=== PATIENT | female | born 1950 | race Caucasian/White ===

== ENCOUNTER 2018-03-06 13:27 | Emergency (ER) | payer MEDICARE ==
--- NOTE | 2018-03-06 13:56 | ERPHSYRPT ---
- History of Present Illness Time Seen by Provider: 03/06/18 13:51 Source: patient Exam Limitations: no limitations Physician History: The patient is a 5-year-old female with her complaining of right knee pain and swelling for 3 days. It hurts more at the back of her knee. She does not do much walking but when she does she uses a walker. She denies fever or chills. She denies shortness of breath. She has a past history of blood clots after having her knees replaced in 2000 or 2001. She is currently not on blood thinners except for aspirin 81 mg daily. She denies any trauma to the knee. She's had bilateral knee replacements. Her past medical history is significant for blood clot, bilateral knee replacements, high cholesterol, hypertension, edema, anxiety, depression, and asthma. Method of Injury: unknown Occurred: days ago (3) Quality: stabbing Severity of Pain-Max: moderate Severity of Pain-Current: moderate Lower Extremities Pain: knee: right Modifying Factors: Improves With: nothing Associated Symptoms: unable to bear weight Allergies/Adverse Reactions: Sulfa (Sulfonamide Antibiotics) Allergy (Verified 03/06/18 13:57) Home Medications: Adalimumab [Humira] 40 mg SQ WEEKLY 05/19/13 [History] Lisinopril 10 mg [Zestril 10 MG] 10 mg PO DAILY 05/19/13 [History] Metoprolol Succinate 50 mg [Toprol Xl 50 MG] 50 mg PO DAILY 05/19/13 [ History] Albuterol Sulfate [Ventolin Hfa] 18 gm IH QID PRN PRN 10/30/13 [History] Alprazolam 1 mg [Xanax 1 mg] 1 mg PO TID PRN 10/30/13 [History] Desoximetasone 0.05% [Topicort 0.05% Cream 15 Gm] 1 gm TOP BID 10/30/13 [ History] Diclofenac Sodium Gel [Voltaren GEL] 100 gm TP QID 10/30/13 [History] Furosemide [Lasix] 40 mg PO DAILY 10/30/13 [History] Potassium Chloride 10 Meq Tab* [Klor Con 10 MEQ] 10 meq PO DAILY 10/30/13 [ History] Simvastatin 40 mg [Zocor 40 mg] 40 mg PO HS 10/30/13 [History] Aspirin 81 gm Chew [Baby Aspirin 81 mg Chew] 81 mg PO DAILY 12/19/13 [ History] Hydrocodone Bit/Acetaminophen [Hydrocodon-Acetaminophn 10-325] 1 each PO Q6H PRN 12/19/13 [History] Albuterol Sulfate [Albuterol Sulfate Hfa] 18 gm IH Q4HPRN PRN 03/06/18 [History] Budesonide [Entocort EC] 3 mg PO DAILY 03/06/18 [History] Dicyclomine HCl 20 mg [Bentyl 20 mg] 20 mg PO DAILY 03/06/18 [History] Loperamide HCl 2 mg [Imodium 2 mg] 2 mg PO DAILY 03/06/18 [History] Magnesium Oxide 400 mg [Mag-Ox 400] 400 mg PO DAILY 03/06/18 [History] Meloxicam 7.5 mg PO DAILY 03/06/18 [History] Omeprazole 40 mg PO DAILY 03/06/18 [History] Venlafaxine HCl ER 75 mg [Effexor XR 75 MG] 75 mg PO DAILY 03/06/18 [ History] Hx Tetanus, Diphtheria Vaccination/Date Given: Yes Hx Influenza Vaccination/Date Given: Yes Hx Pneumococcal Vaccination/Date Given: Yes - Review of Systems Constitutional: No Fever, No Chills Eyes: No Symptoms Ears, Nose, & Throat: No Symptoms Respiratory: No Cough, No Dyspnea Cardiac: No Chest Pain, No Edema, No Syncope Abdominal/Gastrointestinal: No Abdominal Pain, No Nausea, No Vomiting, No Diarrhea Genitourinary Symptoms: No Dysuria Musculoskeletal: Joint Swelling (right knee) Skin: No Rash Neurological: No Dizziness, No Focal Weakness, No Sensory Changes Psychological: No Symptoms Endocrine: No Symptoms Hematologic/Lymphatic: No Symptoms Immunological/Allergic: No Symptoms All Other Systems: Reviewed and Negative - Past Medical History Pertinent Past Medical History: Yes Neurological History: No Pertinent History ENT History: Cataracts Cardiac History: Hypertension Respiratory History: COPD Endocrine Medical History: Diabetes Type II Musculoskeletal History: Arthritis, Fibromyalgia, Other GI Medical History: GERD History: No Pertinent History Psycho-Social History: Depression Female Reproductive Disorders: No Pertinent History Other Medical History: PSORIATIC OA, - Past Surgical History Past Surgical History: Yes Neuro Surgical History: No Pertinent History Cardiac: No Pertinent History Respiratory: No Pertinent History Gastrointestinal: No Pertinent History Genitourinary: No Pertinent History, Other Musculoskeletal: Joint Replacement, Orthopedic Surgery Female Surgical History: Hysterectomy Other Surgical History: RIGHT AND LEFT KNEE, TUMOR ON LEFT SIDE REMOVED, BLADDER TACT. cataract removed from left eye, orif of left wrist - Social History Smoking Status: Never smoker How long have you smoked: 35 yrs Exposure to second hand smoke: No Alcohol Use: None Drug Use: none Patient Lives Alone: No Significant Family History: diabetes, hypertension - Nursing Vital Signs Nursing Vital Signs: Initial Vital Signs Temperature 97.7 F 03/06/18 13:33 Pulse Rate 89 03/06/18 13:33 Respiratory Rate 20 03/06/18 13:33 Blood Pressure 85/61 03/06/18 13:33 O2 Sat by Pulse Oximetry 95 03/06/18 13:33 Pain Scale Pain Intensity 5 - Physical Exam General Appearance: alert Eyes, Ears, Nose, Throat Exam: moist mucous membranes Neck Exam: non-tender, supple Cardiovascular/Respiratory Exam: chest non-tender, normal breath sounds, regular rate/rhythm, no respiratory distress Gastrointestinal/Abdominal Exam: non-tender, guarding Back Exam: normal inspection, No vertebral tenderness Hips Exam: bilateral: normal inspection Legs Exam: bilateral leg: normal inspection Knees Exam: right knee: pain, soft tissue tenderness (posterior), swelling Ankle Exam: bilateral ankle: normal inspection Foot Exam: bilateral foot: normal inspection Neuro/Tendon Exam: normal sensation, normal motor functions Mental Status Exam: alert, oriented x 3, cooperative Skin Exam: normal color, warm, dry SpO2 Interpretation: normal - Radiology Exams Right Knee X-ray Interpretation: Reviewed by me, Teleradiologist Report (per Dr Reed) , Other (total right knee arthroplasty. prosthesis is well seated. small puprapatellar joint effusion is suspected.) - Radiology Ultrasound Exam Right Venous Lower Extremity Ultrasound: negative, Other (no DVT seen. bakers cyst seen. per U/S tech.) Ordered Tests: Active Orders 24 hr Category Date Time Status IV Insertion STAT Care 03/06/18 14:01 Active KNEE (3 VIEWS) Stat Exams 03/06/18 14:04 Taken VENOUS UNILAT/LIMITED EXTREMIT [US] Stat Exams 03/06/18 15:53 Taken BMP Stat Lab 03/06/18 14:10 Completed CBC W DIFF Stat Lab 03/06/18 14:10 Completed D-DIMER QUANTITATION Stat Lab 03/06/18 14:10 Completed NT PRO BNP Stat Lab 03/06/18 14:10 Completed Lab/Rad Data: Laboratory Result Diagrams 03/06/18 14:10 03/06/18 14:10 Laboratory Results 03/06/18 03/06/18 03/06/18 Range/Units 14:10 14:10 14:10 WBC 10.3 (4.0-10.5) K/mm3 RBC 4.02 L (4.1-5.4) M/mm3 Hgb 12.9 (12.0-16.0) gm/dl Hct 40.0 (35-47) % MCV 99.5 (78-100) fl MCH 32.0 (26-32) pg MCHC 32.3 (32-36) g/dl RDW 14.2 H (11.5-14.0) % Plt Count 312 (150-450) K/mm3 MPV 9.0 (6-9.5) fl Gran % 60.1 (36.0-66.0) % Eos # (Auto) 0.37 (0-0.5) Absolute Lymphs (auto) 2.89 (1.0-4.6) Absolute Monos (auto) 0.80 (0.0-1.3) Lymphocytes % 28.1 (24.0-44.0) % Monocytes % 7.8 (0.0-12.0) % Eosinophils % 3.6 (0.00-5.0) % Basophils % 0.4 (0.0-0.4) % Absolute Granulocytes 6.17 (1.4-6.9) Basophils # 0.04 (0-0.4) D-Dimer 629 H* (215-500) ng/mL Sodium 140 (137-145) mmol/L Potassium 4.1 (3.5-5.1) mmol/L Chloride 99 (98-107) mmol/L Carbon Dioxide 31 H (22-30) mmol/L Anion Gap 14.8 (5-15) MEQ/L BUN 32 H (7-17) mg/dL Creatinine 1.09 H (0.52-1.04) mg/dL Estimated GFR 52.7 ML/MIN Glucose 105 (74-106) mg/dL Calcium 9.6 (8.4-10.2) mg/dL NT-Pro-B Natriuret Pep 37.2 (0-900) pg/mL - Progress Progress: unchanged Counseled pt/family regarding: lab results, diagnosis, need for follow-up, rad results - Departure Time of Disposition: 16:37 Departure Disposition: Home Clinical Impression: Pain and swelling of right knee Condition: Stable Critical Care Time: No Referrals: JOSE ABAD, [place] [Primary Care Provider] - Additional Instructions: You have pain and swelling of your right knee. The ultrasound of your knee did not show any blood clot. The x-ray of her knee showed some mild swelling and small bone fragments. The artificial knee was in good position and seated well. Apply ice to your knee for 15-20 minutes 3-4 times a day for the next 2- 3 days. Follow-up with your doctor next week.
[2018-03-06 14:19] LABS: BASOPHIL % 0.4 % (0.0-0.4); Basophil (Absolute #) 0.04 (0-0.4); Eosinophil % 3.6 % (0.00-5.0); Eosinophil (Absolute #) 0.37 (0-0.5); Granulocyte Absolute (ANC) 6.17 (1.4-6.9); Granulocytes % 60.1 % (36.0-66.0); Hemoglobin 12.9 gm/dl (12.0-16.0); Lymphocyte (Absolute #) 2.89 (1.0-4.6); Lymphocytes % 28.1 % (24.0-44.0); Mean Cell Volume 99.5 fl (78-100); Mean Corpuscular Hgb Concent. 32.3 g/dl (32-36); Monocytes % 7.8 % (0.0-12.0); Platelet Count 312 K/mm3 (150-450); Red Blood Count 4.02 M/mm3 (4.1-5.4); Red Cell Distribution Width 14.2 % (11.5-14.0); White Blood Count 10.3 K/mm3 (4.0-10.5)
[2018-03-06 14:36] LABS: ANION GAP 14.8 MEQ/L (5-15); Calcium 9.6 mg/dL (8.4-10.2); Creatinine 1 1.09 mg/dL (0.52-1.04); Potassium 4.1 mmol/L (3.5-5.1)
[2018-03-06 14:45] LABS: NT PRO BNP 37.2 pg/mL (0-900)
[2018-03-06 16:05] VITALS: BP 112/60; PULSE 78; O2SAT 97
--- NOTE | 2018-03-06 21:11 | XRAY ---
Indication: Right knee swelling. Two-dimensional sonogram and color Doppler imaging of the major venous vessels of the right leg was performed. Comparison: None No thrombus seen in the examined deep venous vessels of the right leg including greater saphenous vein. Veins demonstrate normal compressibility. Venous waveforms are normal with and without augmentation. 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 Comment: Preliminary report was given.
--- NOTE | 2018-03-06 21:14 | XRAY ---
Indication: Pain and swelling. No known injury. Comparison: June 28, 2013. 3 views of the right knee again demonstrates osteopenia, total knee arthroplasty with intact articulation/prosthesis, and heterotopic ossifications. New nonspecific effusion. No other abnormalities. Comment: Preliminary interpretation was made by C. No discrepancy.
== END 2018-03-06 16:54 | disposition home or self-care (01) ==
LOC: ED 13:27
DX: M25.561 Pain in right knee (principal); M25.461 Effusion, right knee; I10 Essential (primary) hypertension; J44.9 Chronic obstructive pulmonary disease, unspecified; E11.9 Type 2 diabetes mellitus without complications; M79.7 Fibromyalgia; K21.9 Gastro-esophageal reflux disease without esophagitis; F32.9 Major depressive disorder, single episode, unspecified; Z79.899 Other long term (current) drug therapy; Z79.82 Long term (current) use of aspirin; Z86.718 Personal history of other venous thrombosis and embolism; Z96.653 Presence of artificial knee joint, bilateral
CPT/HCPCS: 36000; 36415; 73562; 80048; 83880; 85025; 85379; 93971; 99284

== ENCOUNTER 2018-12-29 11:09 | Day surgery (SDC) | payer MEDICARE ==
[2018-12-29] MEDS ORDERED: Ketamine HCl 50 MG/ML IV ONE (11:10)
[2018-12-29] MEDS ORDERED: Depo-Medrol 40 MG/ML IM ONE (11:10)
[2018-12-29] MEDS ORDERED: DIPRIVAN 200 MG/20 ML IV ONE (11:10)
[2018-12-29] MEDS ORDERED: Marcaine 0.5% SDV 10 ML IJ ONE (11:10)
[2018-12-29] MEDS ORDERED: Lactated Ringers 1,000 ML IV ONE (14:23)
--- NOTE | 2018-12-29 16:27 | XRAY ---
9 seconds fluoroscopy time in surgery for right SI joint injection.
--- NOTE | 2018-12-30 05:06 | XRAY ---
Indication: Right SI joint injection. Intraoperative fluoroscopy was provided for 9 seconds. 2 digital spot images reveal a posterior needle tip in the projection of the inferior margin of the right sacroiliac joint. Correlate with intraoperative findings/report.
== END 2018-12-29 12:55 | disposition home or self-care (01) ==
LOC: SDC-PAIN 11:09
PROVIDERS: ATTEND Psychiatry & Neurology Pain Medicine
DX: M46.1 Sacroiliitis, not elsewhere classified (principal); M53.3 Sacrococcygeal disorders, not elsewhere classified; E11.9 Type 2 diabetes mellitus without complications; I10 Essential (primary) hypertension; J44.9 Chronic obstructive pulmonary disease, unspecified; K21.9 Gastro-esophageal reflux disease without esophagitis; M06.9 Rheumatoid arthritis, unspecified; F41.9 Anxiety disorder, unspecified; F32.9 Major depressive disorder, single episode, unspecified
CPT/HCPCS: 72020; 77002; 82962; G0260; 27096; 99100; J1030; J2704

== ENCOUNTER 2019-01-26 10:18 | Day surgery (SDC) | payer MEDICARE ==
[2019-01-26] MEDS ORDERED: Depo-Medrol 40 MG/ML IM ONE (10:19)
[2019-01-26] MEDS ORDERED: Marcaine 0.5% SDV 10 ML IJ ONE (10:19)
[2019-01-26] MEDS ORDERED: Ketamine HCl 50 MG/ML ONE (11:44)
[2019-01-26] MEDS ORDERED: DIPRIVAN 200 MG/20 ML IV ONE (11:44)
--- NOTE | 2019-01-26 13:06 | XRAY ---
Indication: Right SI joint injection. Intraoperative fluoroscopy was provided for 6 seconds. 2 digital spot images submitted for interpretation demonstrates posterior needle tip projecting over the inferior right SI joint. Correlate with intraoperative findings/report.
--- NOTE | 2019-01-26 13:09 | XRAY ---
6 seconds of fluoroscopy was used in surgery for right SI joint injection.
[2019-01-26] MEDS ORDERED: Lactated Ringers 1,000 ML IV ONE (13:34)
== END 2019-01-26 12:12 | disposition home or self-care (01) ==
LOC: SDC-PAIN 10:18
PROVIDERS: ATTEND Psychiatry & Neurology Pain Medicine
DX: M46.1 Sacroiliitis, not elsewhere classified (principal); M53.3 Sacrococcygeal disorders, not elsewhere classified; I10 Essential (primary) hypertension; J44.9 Chronic obstructive pulmonary disease, unspecified; F41.8 Other specified anxiety disorders; M06.9 Rheumatoid arthritis, unspecified; E11.9 Type 2 diabetes mellitus without complications; M19.90 Unspecified osteoarthritis, unspecified site; K21.9 Gastro-esophageal reflux disease without esophagitis; R00.0 Tachycardia, unspecified
CPT/HCPCS: 20610; 72020; 77002; J1030; J2704

== ENCOUNTER 2019-06-14 22:06 | Inpatient (IN) | payer MEDICARE ==
--- NOTE | 2019-06-14 22:20 | ERPHSYRPT ---
- History of Present Illness Time Seen by Provider: 06/14/19 22:10 Source: patient, family Exam Limitations: other (confusion) Physician History: 69 y/o white female with lung issues, depression, diabetes and htn presents with confusion. pt states since this am. i spoke with and he states confusion for 3 weeks and worsening. spouse states pt was seen by pcp today( bret vogel-dr. barreto)and was taken off of a bp medication. pt denies head injury, denies headache, denies cp, denies soa, denies abd pain. abilify started 06/01/19. pt prescribed augmentin this afternoon by pcp. Timing/Duration: week(s) (3), worse Severity: mild Character of Deficits: none Baseline/Normal Cognition: alert oriented x 3 Current Cognition: alert but confused (mild confusion) Associated Symptoms: confusion, No weakness, No slurred speech, No vision changes, No chest pain Allergies/Adverse Reactions: Sulfa (Sulfonamide Antibiotics) Allergy (Verified 06/14/19 22:26) morphine Adverse Reaction (Verified 06/14/19 22:28) Home Medications: Lisinopril 10 mg [Zestril 10 MG] 10 mg PO DAILY 05/19/13 [History] Metoprolol Succinate 50 mg [Toprol Xl 50 MG] 50 mg PO DAILY 05/19/13 [ History] Furosemide [Lasix] 40 mg PO DAILY 10/30/13 [History] Potassium Chloride 10 Meq Tab* [Klor Con 10 MEQ] 10 meq PO DAILY 10/30/13 [ History] Simvastatin 40 mg [Zocor 40 mg] 40 mg PO HS 10/30/13 [History] Albuterol Sulfate [Albuterol Sulfate Hfa] 18 gm IH Q4HPRN PRN 03/06/18 [History] Meloxicam 7.5 mg PO DAILY 03/06/18 [History] Omeprazole 40 mg PO DAILY 03/06/18 [History] Alendronate Sodium 70 mg [Fosamax 70 MG] 70 mg PO Q7D@0600 06/15/19 [ History] Allopurinol 100 mg [Zyloprim 100 mg] 100 mg PO DAILY 06/15/19 [History] Aripiprazole [Abilify] 20 mg PO DAILY 06/15/19 [History] Aspirin EC 325 mg [Ecotrin 325 MG] 325 mg PO DAILY 06/15/19 [History] Duloxetine HCl 60 mg PO BID 06/15/19 [History] Etodolac 400 mg PO BID 06/15/19 [History] Fluticasone Propion/Salmeterol [Fluticasone-Salmeterol 250-50] 1 each IH BID 01/26 [History] Gabapentin 300 mg PO HS 06/15/19 [History] Oxycodone HCl/Acetaminophen [Oxycodon-Acetaminophen 7.5-325] 1 each PO Q4H PRN PRN 06/15/19 [History] Tizanidine HCl 4 mg [Zanaflex 4 MG] 4 mg PO Q6H PRN PRN 06/15/19 [History] Hx Tetanus, Diphtheria Vaccination/Date Given: Yes Hx Influenza Vaccination/Date Given: Yes Hx Pneumococcal Vaccination/Date Given: Yes - Review of Systems Constitutional: No Symptoms Eyes: No Symptoms Ears, Nose, & Throat: No Symptoms Respiratory: No Symptoms Cardiac: No Symptoms Abdominal/Gastrointestinal: No Symptoms Genitourinary Symptoms: No Symptoms Musculoskeletal: No Symptoms Skin: No Symptoms Neurological: Other (confusion) Psychological: No Symptoms Endocrine: No Symptoms Hematologic/Lymphatic: No Symptoms Immunological/Allergic: No Symptoms All Other Systems: Reviewed and Negative - Past Medical History Pertinent Past Medical History: Yes Neurological History: No Pertinent History ENT History: Cataracts Cardiac History: Hypertension Respiratory History: COPD Endocrine Medical History: Diabetes Type II Musculoskeletal History: Arthritis, Fibromyalgia, Other GI Medical History: GERD History: No Pertinent History Psycho-Social History: Depression Female Reproductive Disorders: No Pertinent History Other Medical History: PSORIATIC OA, - Past Surgical History Past Surgical History: Yes Neuro Surgical History: No Pertinent History Cardiac: No Pertinent History Respiratory: No Pertinent History Gastrointestinal: No Pertinent History Genitourinary: No Pertinent History, Other Musculoskeletal: Joint Replacement, Orthopedic Surgery Female Surgical History: Hysterectomy Other Surgical History: RIGHT AND LEFT KNEE, TUMOR ON LEFT SIDE REMOVED, BLADDER TACT. cataract removed from left eye, orif of left wrist - Social History Smoking Status: Never smoker How long have you smoked: 35 yrs Exposure to second hand smoke: No Alcohol Use: None Drug Use: none Patient Lives Alone: No Significant Family History: diabetes, hypertension - Nursing Vital Signs Nursing Vital Signs: Initial Vital Signs Pulse Rate 109 H 06/14/19 22:10 Respiratory Rate 18 06/14/19 22:10 Blood Pressure 113/60 06/14/19 22:10 O2 Sat by Pulse Oximetry 94 L 06/14/19 22:10 Pain Scale Pain Intensity 0 - Kenan Coma Scale Best Eye Response (Fontanelle): (4) open spontaneously Best Verbal Response (Fontanelle): (4) confused conversation Best Motor Response (Kenan): (6) obeys commands Fontanelle Total: 14 - Physical Exam General Appearance: no apparent distress, alert, anxiety Eye Exam: bilateral eye: normal inspection, PERRL, EOMI Ears, Nose, Throat Exam: moist mucous membranes, other (edentulous) Neck Exam: normal inspection, non-tender, supple, full range of motion Respiratory: normal breath sounds, lungs clear, airway intact, No chest tenderness, No respiratory distress Cardiovascular: regular rate/rhythm, normal heart sounds, normal peripheral pulses Gastrointestinal: soft, normal bowel sounds, No tenderness Pelvic Exam: not done Rectal Exam: not done Back Exam: normal inspection, normal range of motion, CVA tenderness Extremity Exam: normal inspection, normal range of motion, pelvis stable Mental Status: alert, cooperative mobile lounge driver or operator Exam: normal hearing, normal speech, PERRL Coordination/Gait: normal finger to nose, normal gait, normal cerebellar function Motor/Sensory: no motor deficit, no sensory deficit, no pronator drift Skin Exam: normal color, warm, dry SpO2 Interpretation: normal O2 Delivery: Room Air - Course Nursing assessment & vital signs reviewed: Yes EKG Interpreted by Me: RATE (104), Sinus Rhythm, NORMAL AXIS, NORMAL INTERVALS, NORMAL QRS, Other (no sig changes from comparison ekg dated 12/02/15) Ordered Tests: Active Orders 24 hr Category Date Time Status Accucheck STAT Care 06/14/19 22:25 Active Nailhead Puncher STAT Care 06/14/19 22:25 Active EKG-ER Only STAT Care 06/14/19 22:25 Active IV Insertion STAT Care 06/14/19 22:25 Active IV Insertion-2nd Peripheral STAT Care 06/14/19 23:00 Active NPO (ED) STAT Care 06/14/19 22:25 Active Oxygen-ED Only Nasal Cannula 2 lpm Care 06/14/19 22:32 Active Pulse Oximetry (ED) STAT Care 06/14/19 22:25 Active cath [Cath for Specimen-Straight] STAT Care 06/14/19 22:44 Active CHEST 1 VIEW (PORTABLE) Stat Exams 06/14/19 22:47 Taken HEAD WITHOUT CONTRAST [CT] Stat Exams 06/14/19 22:12 Taken BLOOD CULTURE Stat Lab 06/14/19 23:15 Received BMP Stat Lab 06/15/19 01:20 Completed CBC W DIFF Stat Lab 06/14/19 22:20 Completed CBC W DIFF Stat Lab 06/15/19 01:20 Completed CMP Stat Lab 06/14/19 22:20 Completed Lactic Acid Stat Lab 06/14/19 22:50 Completed MAG [MAGNESIUM] Stat Lab 06/14/19 22:20 Completed Manual Differential NC Stat Lab 06/14/19 22:20 Completed Manual Differential NC Stat Lab 06/15/19 01:20 Completed UA W/RFX UR CULTURE Stat Lab 06/14/19 23:00 Completed Urine Triage Profile Stat Lab 06/14/19 23:00 Completed Respiratory Therapy Assessment DAILY RT 06/14/19 23:40 Active Respiratory Therapy Consult ONCE RT 06/14/19 23:40 Completed Transfer Order Routine Transfer 06/15/19 Ordered Medication Summary Generic Name Dose Route Start Last Admin Trade Name Freq PRN Reason Stop Dose Admin Sodium Chloride 1,000 mls @ 100 mls/hr 06/14/19 22:30 06/14/19 23:07 Sodium Chloride 0.9% 1000 Ml IV 07/14/19 22:29 999 mls/hr .Q10H NUBIA Administration Discontinued Medications Generic Name Dose Route Start Last Admin Trade Name Freq PRN Reason Stop Dose Admin Albuterol Sulfate 2.5 mg 06/14/19 23:24 06/14/19 23:29 Proventil 2.5 Mg/3 Ml Neb IH 06/14/19 23:25 2.5 mg STAT ONE Administration Albuterol Sulfate Confirm 06/14/19 23:27 Proventil 2.5 Mg/3 Ml Neb Administered 06/14/19 23:28 Dose 2.5 mg IH .STK-MED ONE Calcium Chloride 1,000 mg 06/14/19 23:20 06/14/19 23:49 Calcium Chloride 10% 1000 Mg IV 06/14/19 23:21 1,000 mg STAT ONE Administration Calcium Chloride Confirm 06/14/19 23:31 Calcium Chloride 10% 1000 Mg Administered 06/14/19 23:32 Dose 1,000 mg .ROUTE .STK-MED ONE Dextrose 50 ml 06/14/19 23:22 06/14/19 23:42 D50w 50 Ml Abboject IV 06/14/19 23:23 50 ml STAT ONE Administration Sodium Chloride 1,000 mls @ 999 mls/hr 06/14/19 23:04 06/14/19 23:09 Sodium Chloride 0.9% 1000 Ml IV 06/15/19 00:04 999 mls/hr .Q1H1M STA Administration Dextrose Confirm 06/14/19 23:33 Dextrose 10% 250 Ml Administered 06/14/19 23:34 Dose 250 mls @ ud IV .STK-MED ONE Insulin Human Regular 3 unit 06/14/19 23:23 06/14/19 23:48 Novolin R IV 06/14/19 23:24 3 unit STAT ONE Administration Insulin Human Regular Confirm 06/14/19 23:47 Novolin R Administered 06/14/19 23:48 Dose 3 unit .ROUTE .STK-MED ONE Sodium Bicarbonate 50 meq 06/14/19 23:21 06/14/19 23:51 Sodium Bicarbonate 50 Meq/50 Ml Abboject IV 06/14/19 23:22 50 meq STAT ONE Administration Sodium Bicarbonate Confirm 06/14/19 23:32 Sodium Bicarbonate 50 Meq/50 Ml Abboject Administered 06/14/19 23:33 Dose 50 meq IV .STK-MED ONE Sodium Polystyrene Sulfonate 30 g 06/14/19 23:20 06/14/19 23:41 Kayexylate 15 Gm/60 Ml PO 06/14/19 23:21 30 g STAT ONE Administration Sodium Polystyrene Sulfonate Confirm 06/14/19 23:32 Kayexylate 15 Gm/60 Ml Administered 06/14/19 23:33 Dose 30 g .ROUTE .STK-MED ONE Lab/Rad Data: Laboratory Result Diagrams 06/15/19 01:20 06/15/19 01:20 Laboratory Results 06/15/19 06/15/19 06/14/19 Range/Units 01:20 01:20 23:00 WBC 19.5 H (4.0-10.5) K/mm3 RBC 3.31 L (4.1-5.4) M/mm3 Hgb 10.6 L (12.0-16.0) gm/dl Hct 32.7 L (35-47) % MCV 98.8 (78-100) fl MCH 32.0 (26-32) pg MCHC 32.4 (32-36) g/dl RDW 14.4 H (11.5-14.0) % Plt Count 417 (150-450) K/mm3 MPV 9.2 (6-9.5) fl Segmented Neutrophils (36.0-66.0) % Band Neutrophils (0.0-2.0) % Lymphocytes (Manual) (24-44) % Monocytes (Manual) (0.0-12.0) % Eosinophils (Manual) (0.00-3.0) % Platelet Estimate (NORMAL) RBC Morphology Poikilocytosis Anisocytosis Sodium 134 L (137-145) mmol/L Potassium 5.4 H D (3.5-5.1) mmol/L Chloride 103 (98-107) mmol/L Carbon Dioxide 25 (22-30) mmol/L Anion Gap 11.8 (5-15) MEQ/L BUN 59 H (7-17) mg/dL Creatinine 2.42 H (0.52-1.04) mg/dL Estimated GFR 21.0 ML/MIN Glucose 81 (74-106) mg/dL Lactic Acid (0.4-2.0) Calcium 11.2 H (8.4-10.2) mg/dL Magnesium (1.6-2.3) mg/dL Total Bilirubin (0.2-1.3) mg/dL AST (14-36) U/L ALT (0-35) U/L Alkaline Phosphatase (38-126) U/L Ammonia (9-30) umol/L Serum Total Protein (6.3-8.2) g/dL Albumin (3.5-5.0) g/dL Urine Color (YELLOW) Urine Appearance (CLEAR) Urine pH (5-6) Ur Specific Oliver (1.005-1.025) Urine Protein (Negative) Urine Ketones (NEGATIVE) Urine Blood (0-5) Librado/ul Urine Nitrite (NEGATIVE) Urine Bilirubin (NEGATIVE) Urine Urobilinogen (0-1) mg/dL Ur Leukocyte Esterase (NEGATIVE) Urine WBC (Auto) (0-5) /HPF Urine RBC (Auto) (0-2) /HPF U Hyaline Cast (Auto) (0-2) /LPF U Epithel Cells (Auto) (FEW) /HPF Urine Bacteria (Auto) (NEGATIVE) /HPF Urine Mucus (Auto) (NEGATIVE) /HPF Urine Culture Reflexed (NO) Urine Glucose (NEGATIVE) mg/dL Urine Opiates Level POSITIVE (NEGATIVE) Ur Methadone NEGATIVE (NEGATIVE) Urine Barbiturates NEGATIVE (NEGATIVE) Ur Phencyclidine (PCP) NEGATIVE (NEGATIVE) Urine Amphetamine NEGATIVE (NEGATIVE) U Benzodiazepine Level NEGATIVE (NEGATIVE) Urine Cocaine NEGATIVE (NEGATIVE) Urine Marijuana (THC) NEGATIVE (NEGATIVE) 06/14/19 06/14/19 06/14/19 Range/Units 23:00 22:50 22:20 WBC (4.0-10.5) K/mm3 RBC (4.1-5.4) M/mm3 Hgb (12.0-16.0) gm/dl Hct (35-47) % MCV (78-100) fl MCH (26-32) pg MCHC (32-36) g/dl RDW (11.5-14.0) % Plt Count (150-450) K/mm3 MPV (6-9.5) fl Segmented Neutrophils (36.0-66.0) % Band Neutrophils (0.0-2.0) % Lymphocytes (Manual) (24-44) % Monocytes (Manual) (0.0-12.0) % Eosinophils (Manual) (0.00-3.0) % Platelet Estimate (NORMAL) RBC Morphology Poikilocytosis Anisocytosis Sodium (137-145) mmol/L Potassium (3.5-5.1) mmol/L Chloride (98-107) mmol/L Carbon Dioxide (22-30) mmol/L Anion Gap (5-15) MEQ/L BUN (7-17) mg/dL Creatinine (0.52-1.04) mg/dL Estimated GFR ML/MIN Glucose (74-106) mg/dL Lactic Acid 1.0 (0.4-2.0) Calcium (8.4-10.2) mg/dL Magnesium 1.5 L (1.6-2.3) mg/dL Total Bilirubin (0.2-1.3) mg/dL AST (14-36) U/L ALT (0-35) U/L Alkaline Phosphatase (38-126) U/L Ammonia (9-30) umol/L Serum Total Protein (6.3-8.2) g/dL Albumin (3.5-5.0) g/dL Urine Color YELLOW (YELLOW) Urine Appearance SLIGHTLY CLOUDY (CLEAR) Urine pH 5.0 (5-6) Ur Specific Oliver 1.015 (1.005-1.025) Urine Protein NEGATIVE (Negative) Urine Ketones NEGATIVE (NEGATIVE) Urine Blood NEGATIVE (0-5) Librado/ul Urine Nitrite NEGATIVE (NEGATIVE) Urine Bilirubin NEGATIVE (NEGATIVE) Urine Urobilinogen 2 (0-1) mg/dL Ur Leukocyte Esterase NEGATIVE (NEGATIVE) Urine WBC (Auto) 0-2 (0-5) /HPF Urine RBC (Auto) NONE (0-2) /HPF U Hyaline Cast (Auto) 0-2 (0-2) /LPF U Epithel Cells (Auto) NONE (FEW) /HPF Urine Bacteria (Auto) NONE (NEGATIVE) /HPF Urine Mucus (Auto) SLIGHT (NEGATIVE) /HPF Urine Culture Reflexed NO (NO) Urine Glucose NEGATIVE (NEGATIVE) mg/dL Urine Opiates Level (NEGATIVE) Ur Methadone (NEGATIVE) Urine Barbiturates (NEGATIVE) Ur Phencyclidine (PCP) (NEGATIVE) Urine Amphetamine (NEGATIVE) U Benzodiazepine Level (NEGATIVE) Urine Cocaine (NEGATIVE) Urine Marijuana (THC) (NEGATIVE) 06/14/19 06/14/19 06/14/19 Range/Units 22:20 22:20 22:20 WBC 24.3 H (4.0-10.5) K/mm3 RBC 3.76 L (4.1-5.4) M/mm3 Hgb 11.9 L (12.0-16.0) gm/dl Hct 36.8 (35-47) % MCV 97.9 (78-100) fl MCH 31.6 (26-32) pg MCHC 32.3 (32-36) g/dl RDW 14.5 H (11.5-14.0) % Plt Count 538 H (150-450) K/mm3 MPV 9.6 H (6-9.5) fl Segmented Neutrophils 78 H (36.0-66.0) % Band Neutrophils 5 H (0.0-2.0) % Lymphocytes (Manual) 11 L (24-44) % Monocytes (Manual) 3 (0.0-12.0) % Eosinophils (Manual) 3 (0.00-3.0) % Platelet Estimate NORMAL (NORMAL) RBC Morphology ABNORMAL Poikilocytosis 1+ Anisocytosis 1+ Sodium 132 L (137-145) mmol/L Potassium 6.8 H* (3.5-5.1) mmol/L Chloride 96 L (98-107) mmol/L Carbon Dioxide 24 (22-30) mmol/L Anion Gap 18.2 H (5-15) MEQ/L BUN 61 H (7-17) mg/dL Creatinine 3.16 H (0.52-1.04) mg/dL Estimated GFR 15.4 ML/MIN Glucose 85 (74-106) mg/dL Lactic Acid (0.4-2.0) Calcium 11.5 H (8.4-10.2) mg/dL Magnesium (1.6-2.3) mg/dL Total Bilirubin 1.00 (0.2-1.3) mg/dL AST 19 (14-36) U/L ALT 16 (0-35) U/L Alkaline Phosphatase 95 (38-126) U/L Ammonia < 9 L (9-30) umol/L Serum Total Protein 6.2 L (6.3-8.2) g/dL Albumin 3.2 L (3.5-5.0) g/dL Urine Color (YELLOW) Urine Appearance (CLEAR) Urine pH (5-6) Ur Specific Oliver (1.005-1.025) Urine Protein (Negative) Urine Ketones (NEGATIVE) Urine Blood (0-5) Librado/ul Urine Nitrite (NEGATIVE) Urine Bilirubin (NEGATIVE) Urine Urobilinogen (0-1) mg/dL Ur Leukocyte Esterase (NEGATIVE) Urine WBC (Auto) (0-5) /HPF Urine RBC (Auto) (0-2) /HPF U Hyaline Cast (Auto) (0-2) /LPF U Epithel Cells (Auto) (FEW) /HPF Urine Bacteria (Auto) (NEGATIVE) /HPF Urine Mucus (Auto) (NEGATIVE) /HPF Urine Culture Reflexed (NO) Urine Glucose (NEGATIVE) mg/dL Urine Opiates Level (NEGATIVE) Ur Methadone (NEGATIVE) Urine Barbiturates (NEGATIVE) Ur Phencyclidine (PCP) (NEGATIVE) Urine Amphetamine (NEGATIVE) U Benzodiazepine Level (NEGATIVE) Urine Cocaine (NEGATIVE) Urine Marijuana (THC) (NEGATIVE) - Progress Progress: improved Progress Note: 06/15/19 02:16 cxr-? right perihilar infiltrate vs increased vascular markings: ct head-no acute process. mild atrophy with chronic remote ischemic changes. spoke with dr. small who is covering for dr. barreto. i reviewed pt hx, condition , old and new lab results, ekg and radiographic findings. he accepts pt for placement for observation Discussed with .: Octavia Counseled pt/family regarding: lab results, diagnosis, rad results - Departure Departure Disposition: Observation Clinical Impression: Confusion, Leukocytosis, Hyperkalemia, Acute renal failure, Pulmonary infiltrate in right lung on CXR Condition: Fair Critical Care Time: Yes Critical Care Time(excluding separately billable procedures): Critical 30-74 mins Referrals: JOSE VOGEL NP [Primary Care Provider] -
[2019-06-14] MEDS ORDERED: Sodium Chloride 0.9% 1000 ML 1,000 ML ONE ×2 (22:34→22:57)
[2019-06-14] MEDS: Sodium Chloride 0.9% 1000 ML 1,000 ML IV SCH ×2 (22:37→23:07)
[2019-06-14 22:38] LABS: Hematocrit 36.8 % (35-47); Hemoglobin 11.9 gm/dl (12.0-16.0); Mean Cell Volume 97.9 fl (78-100); Mean Corpuscular Hemoglobin 31.6 pg (26-32); Mean Corpuscular Hgb Concent. 32.3 g/dl (32-36); Mean Platelet Volume 9.6 fl (6-9.5); Platelet Count 538 K/mm3 (150-450); Red Blood Count 3.76 M/mm3 (4.1-5.4); Red Cell Distribution Width 14.5 % (11.5-14.0); White Blood Count 24.3 K/mm3 (4.0-10.5)
[2019-06-14 22:49] LABS: ALBUMIN 3.2 g/dL (3.5-5.0); ANION GAP 18.2 MEQ/L (5-15); Calcium 11.5 mg/dL (8.4-10.2); Creatinine 1 3.16 mg/dL (0.52-1.04); Total Protein 6.2 g/dL (6.3-8.2)
[2019-06-14] MEDS ORDERED: Sodium Chloride 0.9% 1000 ML 1,000 ML IV STA (23:04)
[2019-06-14 23:10] LABS: Potassium 6.8 mmol/L (3.5-5.1)
[2019-06-14] MEDS ORDERED: CALCIUM CHLORIDE 10% 1000 MG IV ONE (23:20)
[2019-06-14] MEDS ORDERED: Kayexylate 15 GM/60 ML PO ONE (23:20)
[2019-06-14 23:21] LABS: Appearance SLIGHTLY CLOUDY (CLEAR); Bilirubin NEGATIVE (NEGATIVE); Blood NEGATIVE Ery/ul (0-5); Glucose NEGATIVE (NEGATIVE); Hyaline Casts 0-2 /LPF (0-2); Ketones NEGATIVE (NEGATIVE); Leukocyte Esterase NEGATIVE (NEGATIVE); Mucus SLIGHT /HPF (NEGATIVE); Nitrite NEGATIVE (NEGATIVE); Protein,Urine Dip NEGATIVE (Negative); Specific Gravity 1.015 (1.005-1.025); Urobilinogen 2 mg/dL (0-1); WBC 0-2 /HPF (0-5)
[2019-06-14] MEDS ORDERED: SODIUM BICARBONATE 50 MEQ/50 ML ABBOJECT IV ONE ×2 (23:21→23:32)
[2019-06-14] MEDS ORDERED: D50W 50 ml Abboject IV ONE (23:22)
[2019-06-14] MEDS ORDERED: NovoLIN R IV ONE (23:23)
[2019-06-14] MEDS ORDERED: PROVENTIL 2.5 MG/3 ML NEB IH ONE ×2 (23:24→23:27)
[2019-06-14 23:30] LABS: Amphetamine,Urine NEGATIVE (NEGATIVE); Barbiturate,Urine NEGATIVE (NEGATIVE); Benzodiazepine,Urine NEGATIVE (NEGATIVE); Cocaine,Urine NEGATIVE (NEGATIVE); Methadone,Urine NEGATIVE (NEGATIVE); Opiate,Urine POSITIVE (NEGATIVE); PCP,Urine NEGATIVE (NEGATIVE); THC,Urine NEGATIVE (NEGATIVE)
[2019-06-14] MEDS ORDERED: CALCIUM CHLORIDE 10% 1000 MG ONE (23:31)
[2019-06-14] MEDS ORDERED: Kayexylate 15 GM/60 ML ONE (23:32)
[2019-06-14] MEDS ORDERED: DEXTROSE 10% 250 ML 250 ML IV ONE (23:33)
[2019-06-14] MEDS ORDERED: NovoLIN R ONE (23:47)
[2019-06-14 23:55] LABS: BAND 5 % (0.0-2.0); Eosinophil 3 % (0.00-3.0); Lymphocytes 11 % (24-44); Monocyte 3 % (0.0-12.0); Neutrophils 78 % (36.0-66.0); Platelet Estimate NORMAL (NORMAL); Total Cells Counted 100
[2019-06-14 23:56] LABS: ANISOCYTOSIS 1+; Poikilocytosis 1+
[2019-06-15 01:27] LABS: Hematocrit 32.7 % (35-47); Hemoglobin 10.6 gm/dl (12.0-16.0); Mean Cell Volume 98.8 fl (78-100); Mean Corpuscular Hgb Concent. 32.4 g/dl (32-36); Mean Platelet Volume 9.2 fl (6-9.5); Platelet Count 417 K/mm3 (150-450); Red Blood Count 3.31 M/mm3 (4.1-5.4); Red Cell Distribution Width 14.4 % (11.5-14.0); White Blood Count 19.5 K/mm3 (4.0-10.5)
[2019-06-15 01:51] LABS: ANION GAP 11.8 MEQ/L (5-15); Calcium 11.2 mg/dL (8.4-10.2); Creatinine 1 2.42 mg/dL (0.52-1.04); Potassium 5.4 mmol/L (3.5-5.1)
[2019-06-15] MEDS ORDERED: Zofran 4 MG/2 ML VIAL IV PRN (03:13)
[2019-06-15] MEDS ORDERED: TYLENOL 325 MG PO PRN (03:13)
[2019-06-15] MEDS ORDERED: PROVENTIL Solution 2.5 MG/0.5 ML IH ONE (03:55)
[2019-06-15] MEDS ORDERED: PROVENTIL 2.5 MG/3 ML NEB IH PRN (04:00)
[2019-06-15 04:32] LABS: BAND 5 % (0.0-2.0); Eosinophil 1 % (0.00-3.0); Lymphocytes 16 % (24-44); Monocyte 7 % (0.0-12.0); Neutrophils 71 % (36.0-66.0); Total Cells Counted 100
[2019-06-15 04:33] LABS: ANISOCYTOSIS 1+; Platelet Estimate NORMAL (NORMAL)
[2019-06-15] MEDS: Dextrose 5%-NS IV Solution 1000 ML 1,000 ML IV SCH ×2 (04:37→15:03)
[2019-06-15 05:41] LABS: ALBUMIN 3.2 g/dL (3.5-5.0); BILIRUBIN,TOTAL 0.8 mg/dL (0.2-1.3); Calcium 11.3 mg/dL (8.4-10.2); Creatinine 1 2.35 mg/dL (0.52-1.04); Total Protein 6.3 g/dL (6.3-8.2)
[2019-06-15 05:53] LABS: Potassium 5.3 mmol/L (3.5-5.1)
[2019-06-15 06:00] LABS: Hematocrit 37.4 % (35-47); Hemoglobin 11.7 gm/dl (12.0-16.0); Mean Cell Volume 98.9 fl (78-100); Mean Corpuscular Hgb Concent. 31.3 g/dl (32-36); Mean Platelet Volume 9.9 fl (6-9.5); Platelet Count 463 K/mm3 (150-450); Red Blood Count 3.78 M/mm3 (4.1-5.4); Red Cell Distribution Width 14.5 % (11.5-14.0); White Blood Count 21.5 K/mm3 (4.0-10.5)
[2019-06-15 06:02] LABS: Mean Corpuscular Hemoglobin 30.9 pg (26-32)
[2019-06-15] MEDS: PATIENT OWN MEDICATION IH SCH ×2 (08:17→19:32)
[2019-06-15 08:34] LABS: ANISOCYTOSIS 1+; BAND 5 % (0.0-2.0); Eosinophil 2 % (0.00-3.0); Lymphocytes 6 % (24-44); Monocyte 5 % (0.0-12.0); Neutrophils 82 % (36.0-66.0); Platelet Estimate NORMAL (NORMAL); Total Cells Counted 100; Toxic Granulation 1+
--- NOTE | 2019-06-15 08:36 | XRAY ---
Indication: Leukocytosis. Comparison: July 08, 2017. Portable chest demonstrates minimal left base infiltrate versus atelectasis. Remaining heart and right lung unremarkable. Bony thorax intact again with osteopenia and degenerative changes.
--- NOTE | 2019-06-15 08:38 | XRAY ---
Indication: Confusion 3 weeks. Multiple contiguous axial images obtained through the head without contrast. Comparison: None Age-appropriate global atrophy and minimal periventricular degenerative micro-ischemia bilaterally. No acute intracranial hemorrhage, abnormal extra-axial fluid collection, or mass effect. Fourth ventricle is midline without hydrocephalus. Morris-white matter differentiation preserved. Bony calvarium intact. Minimal opacification of the inferior mastoid air cells bilaterally. Visualized paranasal sinuses are clear. Impression: Nonacute senile brain. Minimal opacification of the mastoid air cells presumed inflammatory. Comment: Preliminary interpretation was made by [facility]. No critical discrepancy. CTDI 58.65
--- NOTE | 2019-06-15 08:41 | PCM.HP ---
History of Present Illness - Chief Complaint Chief Complaint: acute renal failure, hyperkalemia, confusion History of Present Illness: is a 69 year old female who has been progressively confused and feeling poorly for the last 2-3 weeks per her . He reports she started complaining of abdominal pain following starting on lodine by her orthopedic surgeon. her med list shows both lodine and meloxicam, she complains of pain in her epigastrium, loose yellow stools and cough as well with yellow sputum production. She reports drinking normally, sees Dr Biggs for her chronic kidney disease. - Review of Systems Constitutional: No Fever, No Chills Respiratory: No Cough, No Short Of Breath Cardiac: No Chest Pain, No Edema, No Syncope Abdominal/Gastrointestinal: Abdominal Pain, Diarrhea, No Nausea, No Vomiting Genitourinary Symptoms: No Dysuria Skin: No Rash Psychological: Other (confusion) Medications & Allergies Home Medications: Home Medication List Lisinopril 10 mg [Zestril 10 MG] 10 mg PO DAILY 05/19/13 [History Confirmed 06/15/19] Metoprolol Succinate 50 mg [Toprol Xl 50 MG] 50 mg PO DAILY 05/19/13 [ History Confirmed 06/15/19] Furosemide [Lasix] 40 mg PO DAILY 10/30/13 [History Confirmed 06/15/19] Potassium Chloride 10 Meq Tab* [Klor Con 10 MEQ] 10 meq PO DAILY 10/30/13 [ History Confirmed 06/15/19] Simvastatin 40 mg [Zocor 40 mg] 40 mg PO HS 10/30/13 [History Confirmed 06/15/19 ] Omeprazole 40 mg PO DAILY 03/06/18 [History Confirmed 06/15/19] Alendronate Sodium 70 mg [Fosamax 70 MG] 70 mg PO Q7D@0600 06/15/19 [ History Confirmed 06/15/19] Allopurinol 100 mg [Zyloprim 100 mg] 100 mg PO DAILY 06/15/19 [History Confirmed 06/15/19] Aripiprazole [Abilify] 20 mg PO DAILY 06/15/19 [History Confirmed 06/15/19] Aspirin EC 325 mg [Ecotrin 325 MG] 325 mg PO DAILY 06/15/19 [History Confirmed 06/15/19] Calcifediol [Rayaldee] 30 mcg PO DAILY 06/15/19 [History Confirmed 06/15/19] Duloxetine HCl 60 mg PO BID 06/15/19 [History Confirmed 06/15/19] Etodolac 400 mg PO BID 06/15/19 [History Confirmed 06/15/19] Fluticasone Propion/Salmeterol [Fluticasone-Salmeterol 250-50] 1 each IH BID 01/26 [History Confirmed 06/15/19] Gabapentin 300 mg PO HS 06/15/19 [History Confirmed 06/15/19] Oxycodone HCl/Acetaminophen [Oxycodon-Acetaminophen 7.5-325] 1 each PO Q4H PRN PRN 06/15/19 [History Confirmed 06/15/19] Tizanidine HCl 4 mg [Zanaflex 4 MG] 4 mg PO Q6H PRN PRN 06/15/19 [History Confirmed 06/15/19] Allergies/Adverse Reactions: Allergies Allergy/AdvReac Type Severity Reaction Status Date / Time Sulfa (Sulfonamide Allergy Verified 06/14/19 22:26 Antibiotics) morphine AdvReac Verified 06/14/19 22:28 - Past Medical History Past Medical History: Yes Neurological History: No Pertinent History ENT History: Cataracts Cardiac History: Hypertension Respiratory History: COPD Endocrine Medical History: Diabetes Type II Musculoskelatal History: Arthritis, Fibromyalgia, Other GI Medical History: GERD, Irritable Bowel History: No Pertinent History Pyscho-Social History: Depression Reproductive Disorders: No Pertinent History Comment: PSORIATIC OA - Female History Hx Last Menstrual Period: unsure Are you now?: No - Past Surgical History Past Surgical History: Yes Neuro Surgical History: No Pertinent History Cardiac History: No Pertinent History Respiratory Surgery: No Pertinent History GI Surgical History: No Pertinent History Genitourinary Surgical Hx: Other Musculskeletal Surgical Hx: Joint Replacement, Orthopedic Surgery Female Surgical History: Hysterectomy Other Surgical History: RIGHT AND LEFT KNEE, TUMOR ON LEFT SIDE REMOVED, BLADDER TACT. cataract removed from left eye, orif of left wrist - Social History Smoking Status: Former smoker How long have you smoked: 3 years Exposure to second hand smoke: Yes Alcohol: None Drug Use: none Significant Family History: diabetes, hypertension - Physical Exam Vital Signs: Vital Signs - 24 hr Temp Pulse Resp BP Pulse Ox 06/15/19 08:00 98.2 F 101 H 18 95/50 95 06/15/19 04:15 107 H 18 96 06/15/19 03:48 97.6 F 107 H 18 121/58 96 06/15/19 03:40 98 06/15/19 03:00 106 H 18 96/66 99 06/15/19 02:30 106 H 16 112/56 97 06/15/19 02:15 105 H 20 101/67 98 06/15/19 02:00 100 H 18 103/59 97 06/15/19 01:30 104 H 18 101/52 98 06/15/19 01:15 104 H 18 127/57 99 06/15/19 00:46 100 H 18 101/50 98 06/15/19 00:30 104 H 22 113/76 99 06/15/19 00:15 102 H 20 103/64 99 06/15/19 00:00 107 H 20 103/54 100 06/14/19 23:40 100 H 20 100 06/14/19 23:25 101 H 20 109/47 100 06/14/19 23:10 98.2 F 101 H 24 89/57 98 06/14/19 22:48 102 H 20 74/40 96 06/14/19 22:46 100 H 20 87/53 96 06/14/19 22:32 104 H 20 95/60 98 06/14/19 22:30 90 L 06/14/19 22:10 109 H 18 113/60 94 L Oxygen-Last 24 hours O2 Percentage 2 Liters = 28% O2 Percentage 4 Liters = 36% O2 Percentage 2 Liters = 28% O2 Percentage 2 Liters = 28% O2 Percentage 2 Liters = 28% O2 Percentage 2 Liters = 28% O2 Percentage 2 Liters = 28% O2 Percentage 2 Liters = 28% O2 Percentage 2 Liters = 28% O2 Percentage 2 Liters = 28% O2 Percentage 2 Liters = 28% O2 Percentage 2 Liters = 28% General Appearance: no apparent distress, alert Neurologic Exam: alert, oriented x 3, cooperative, normal mood/affect, nml cerebellar function, nml station & gait, sensation nml, No motor deficits Eye Exam: PERRL/EOMI, eyes nml inspection Respiratory Exam: normal breath sounds, lungs clear, No respiratory distress Cardiovascular Exam: regular rate/rhythm, normal heart sounds, normal peripheral pulses Gastrointestinal/Abdomen Exam: soft, No tenderness, No distention, No mass Extremity Exam: normal inspection, normal range of motion, pelvis stable Skin Exam: normal color, warm, dry, No rash Results - Labs Lab/Micro Results: Accuchecks Date 06/15/19 Time 07:30 Accucheck Value: 129 Accucheck Value: 93 Accucheck Value: 99 Lab Results-Last 24 Hours 06/14/19 06/14/19 06/14/19 Range/Units 22:20 22:20 22:20 WBC 24.3 H (4.0-10.5) K/mm3 RBC 3.76 L (4.1-5.4) M/mm3 Hgb 11.9 L (12.0-16.0) gm/dl Hct 36.8 (35-47) % MCV 97.9 (78-100) fl MCH 31.6 (26-32) pg MCHC 32.3 (32-36) g/dl RDW 14.5 H (11.5-14.0) % Plt Count 538 H (150-450) K/mm3 MPV 9.6 H (6-9.5) fl Segmented Neutrophils 78 H (36.0-66.0) % Band Neutrophils 5 H (0.0-2.0) % Lymphocytes (Manual) 11 L (24-44) % Monocytes (Manual) 3 (0.0-12.0) % Eosinophils (Manual) 3 (0.00-3.0) % Toxic Granulation Platelet Estimate NORMAL (NORMAL) RBC Morphology ABNORMAL Poikilocytosis 1+ Anisocytosis 1+ Sodium 132 L (137-145) mmol/L Potassium 6.8 H* (3.5-5.1) mmol/L Chloride 96 L (98-107) mmol/L Carbon Dioxide 24 (22-30) mmol/L Anion Gap 18.2 H (5-15) MEQ/L BUN 61 H (7-17) mg/dL Creatinine 3.16 H (0.52-1.04) mg/dL Estimated GFR 15.4 ML/MIN Glucose 85 (74-106) mg/dL Lactic Acid (0.4-2.0) Calcium 11.5 H (8.4-10.2) mg/dL Magnesium (1.6-2.3) mg/dL Total Bilirubin 1.00 (0.2-1.3) mg/dL AST 19 (14-36) U/L ALT 16 (0-35) U/L Alkaline Phosphatase 95 (38-126) U/L Ammonia < 9 L (9-30) umol/L Serum Total Protein 6.2 L (6.3-8.2) g/dL Albumin 3.2 L (3.5-5.0) g/dL Urine Color (YELLOW) Urine Appearance (CLEAR) Urine pH (5-6) Ur Specific [place] (1.005-1.025) Urine Protein (Negative) Urine Ketones (NEGATIVE) Urine Blood (0-5) Librado/ul Urine Nitrite (NEGATIVE) Urine Bilirubin (NEGATIVE) Urine Urobilinogen (0-1) mg/dL Ur Leukocyte Esterase (NEGATIVE) Urine WBC (Auto) (0-5) /HPF Urine RBC (Auto) (0-2) /HPF U Hyaline Cast (Auto) (0-2) /LPF U Epithel Cells (Auto) (FEW) /HPF Urine Bacteria (Auto) (NEGATIVE) /HPF Urine Mucus (Auto) (NEGATIVE) /HPF Urine Culture Reflexed (NO) Urine Glucose (NEGATIVE) mg/dL Urine Opiates Level (NEGATIVE) Ur Methadone (NEGATIVE) Urine Barbiturates (NEGATIVE) Ur Phencyclidine (PCP) (NEGATIVE) Urine Amphetamine (NEGATIVE) U Benzodiazepine Level (NEGATIVE) Urine Cocaine (NEGATIVE) Urine Marijuana (THC) (NEGATIVE) 06/14/19 06/14/19 06/14/19 Range/Units 22:20 22:50 23:00 WBC (4.0-10.5) K/mm3 RBC (4.1-5.4) M/mm3 Hgb (12.0-16.0) gm/dl Hct (35-47) % MCV (78-100) fl MCH (26-32) pg MCHC (32-36) g/dl RDW (11.5-14.0) % Plt Count (150-450) K/mm3 MPV (6-9.5) fl Segmented Neutrophils (36.0-66.0) % Band Neutrophils (0.0-2.0) % Lymphocytes (Manual) (24-44) % Monocytes (Manual) (0.0-12.0) % Eosinophils (Manual) (0.00-3.0) % Toxic Granulation Platelet Estimate (NORMAL) RBC Morphology Poikilocytosis Anisocytosis Sodium (137-145) mmol/L Potassium (3.5-5.1) mmol/L Chloride (98-107) mmol/L Carbon Dioxide (22-30) mmol/L Anion Gap (5-15) MEQ/L BUN (7-17) mg/dL Creatinine (0.52-1.04) mg/dL Estimated GFR ML/MIN Glucose (74-106) mg/dL Lactic Acid 1.0 (0.4-2.0) Calcium (8.4-10.2) mg/dL Magnesium 1.5 L (1.6-2.3) mg/dL Total Bilirubin (0.2-1.3) mg/dL AST (14-36) U/L ALT (0-35) U/L Alkaline Phosphatase (38-126) U/L Ammonia (9-30) umol/L Serum Total Protein (6.3-8.2) g/dL Albumin (3.5-5.0) g/dL Urine Color YELLOW (YELLOW) Urine Appearance SLIGHTLY CLOUDY (CLEAR) Urine pH 5.0 (5-6) Ur Specific [place] 1.015 (1.005-1.025) Urine Protein NEGATIVE (Negative) Urine Ketones NEGATIVE (NEGATIVE) Urine Blood NEGATIVE (0-5) Librado/ul Urine Nitrite NEGATIVE (NEGATIVE) Urine Bilirubin NEGATIVE (NEGATIVE) Urine Urobilinogen 2 (0-1) mg/dL Ur Leukocyte Esterase NEGATIVE (NEGATIVE) Urine WBC (Auto) 0-2 (0-5) /HPF Urine RBC (Auto) NONE (0-2) /HPF U Hyaline Cast (Auto) 0-2 (0-2) /LPF U Epithel Cells (Auto) NONE (FEW) /HPF Urine Bacteria (Auto) NONE (NEGATIVE) /HPF Urine Mucus (Auto) SLIGHT (NEGATIVE) /HPF Urine Culture Reflexed NO (NO) Urine Glucose NEGATIVE (NEGATIVE) mg/dL Urine Opiates Level (NEGATIVE) Ur Methadone (NEGATIVE) Urine Barbiturates (NEGATIVE) Ur Phencyclidine (PCP) (NEGATIVE) Urine Amphetamine (NEGATIVE) U Benzodiazepine Level (NEGATIVE) Urine Cocaine (NEGATIVE) Urine Marijuana (THC) (NEGATIVE) 06/14/19 06/15/19 06/15/19 Range/Units 23:00 01:20 01:20 WBC 19.5 H (4.0-10.5) K/mm3 RBC 3.31 L (4.1-5.4) M/mm3 Hgb 10.6 L (12.0-16.0) gm/dl Hct 32.7 L (35-47) % MCV 98.8 (78-100) fl MCH 32.0 (26-32) pg MCHC 32.4 (32-36) g/dl RDW 14.4 H (11.5-14.0) % Plt Count 417 (150-450) K/mm3 MPV 9.2 (6-9.5) fl Segmented Neutrophils 71 H (36.0-66.0) % Band Neutrophils 5 H (0.0-2.0) % Lymphocytes (Manual) 16 L (24-44) % Monocytes (Manual) 7 (0.0-12.0) % Eosinophils (Manual) 1 (0.00-3.0) % Toxic Granulation Platelet Estimate NORMAL (NORMAL) RBC Morphology ABNORMAL Poikilocytosis Anisocytosis 1+ Sodium 134 L (137-145) mmol/L Potassium 5.4 H D (3.5-5.1) mmol/L Chloride 103 (98-107) mmol/L Carbon Dioxide 25 (22-30) mmol/L Anion Gap 11.8 (5-15) MEQ/L BUN 59 H (7-17) mg/dL Creatinine 2.42 H (0.52-1.04) mg/dL Estimated GFR 21.0 ML/MIN Glucose 81 (74-106) mg/dL Lactic Acid (0.4-2.0) Calcium 11.2 H (8.4-10.2) mg/dL Magnesium (1.6-2.3) mg/dL Total Bilirubin (0.2-1.3) mg/dL AST (14-36) U/L ALT (0-35) U/L Alkaline Phosphatase (38-126) U/L Ammonia (9-30) umol/L Serum Total Protein (6.3-8.2) g/dL Albumin (3.5-5.0) g/dL Urine Color (YELLOW) Urine Appearance (CLEAR) Urine pH (5-6) Ur Specific [place] (1.005-1.025) Urine Protein (Negative) Urine Ketones (NEGATIVE) Urine Blood (0-5) Librado/ul Urine Nitrite (NEGATIVE) Urine Bilirubin (NEGATIVE) Urine Urobilinogen (0-1) mg/dL Ur Leukocyte Esterase (NEGATIVE) Urine WBC (Auto) (0-5) /HPF Urine RBC (Auto) (0-2) /HPF U Hyaline Cast (Auto) (0-2) /LPF U Epithel Cells (Auto) (FEW) /HPF Urine Bacteria (Auto) (NEGATIVE) /HPF Urine Mucus (Auto) (NEGATIVE) /HPF Urine Culture Reflexed (NO) Urine Glucose (NEGATIVE) mg/dL Urine Opiates Level POSITIVE (NEGATIVE) Ur Methadone NEGATIVE (NEGATIVE) Urine Barbiturates NEGATIVE (NEGATIVE) Ur Phencyclidine (PCP) NEGATIVE (NEGATIVE) Urine Amphetamine NEGATIVE (NEGATIVE) U Benzodiazepine Level NEGATIVE (NEGATIVE) Urine Cocaine NEGATIVE (NEGATIVE) Urine Marijuana (THC) NEGATIVE (NEGATIVE) 06/15/19 06/15/19 Range/Units 04:57 04:57 WBC 21.5 H (4.0-10.5) K/mm3 RBC 3.78 L (4.1-5.4) M/mm3 Hgb 11.7 L (12.0-16.0) gm/dl Hct 37.4 (35-47) % MCV 98.9 (78-100) fl MCH 30.9 (26-32) pg MCHC 31.3 L (32-36) g/dl RDW 14.5 H (11.5-14.0) % Plt Count 463 H (150-450) K/mm3 MPV 9.9 H (6-9.5) fl Segmented Neutrophils 82 H (36.0-66.0) % Band Neutrophils 5 H (0.0-2.0) % Lymphocytes (Manual) 6 L (24-44) % Monocytes (Manual) 5 (0.0-12.0) % Eosinophils (Manual) 2 (0.00-3.0) % Toxic Granulation 1+ Platelet Estimate NORMAL (NORMAL) RBC Morphology ABNORMAL Poikilocytosis Anisocytosis 1+ Sodium 135 L (137-145) mmol/L Potassium 5.3 H (3.5-5.1) mmol/L Chloride 102 (98-107) mmol/L Carbon Dioxide 24 (22-30) mmol/L Anion Gap 15.0 (5-15) MEQ/L BUN 54 H (7-17) mg/dL Creatinine 2.35 H (0.52-1.04) mg/dL Estimated GFR 21.7 ML/MIN Glucose 129 H (74-106) mg/dL Lactic Acid (0.4-2.0) Calcium 11.3 H (8.4-10.2) mg/dL Magnesium (1.6-2.3) mg/dL Total Bilirubin 0.80 (0.2-1.3) mg/dL AST 21 (14-36) U/L ALT 15 (0-35) U/L Alkaline Phosphatase 90 (38-126) U/L Ammonia (9-30) umol/L Serum Total Protein 6.3 (6.3-8.2) g/dL Albumin 3.2 L (3.5-5.0) g/dL Urine Color (YELLOW) Urine Appearance (CLEAR) Urine pH (5-6) Ur Specific [place] (1.005-1.025) Urine Protein (Negative) Urine Ketones (NEGATIVE) Urine Blood (0-5) Librado/ul Urine Nitrite (NEGATIVE) Urine Bilirubin (NEGATIVE) Urine Urobilinogen (0-1) mg/dL Ur Leukocyte Esterase (NEGATIVE) Urine WBC (Auto) (0-5) /HPF Urine RBC (Auto) (0-2) /HPF U Hyaline Cast (Auto) (0-2) /LPF U Epithel Cells (Auto) (FEW) /HPF Urine Bacteria (Auto) (NEGATIVE) /HPF Urine Mucus (Auto) (NEGATIVE) /HPF Urine Culture Reflexed (NO) Urine Glucose (NEGATIVE) mg/dL Urine Opiates Level (NEGATIVE) Ur Methadone (NEGATIVE) Urine Barbiturates (NEGATIVE) Ur Phencyclidine (PCP) (NEGATIVE) Urine Amphetamine (NEGATIVE) U Benzodiazepine Level (NEGATIVE) Urine Cocaine (NEGATIVE) Urine Marijuana (THC) (NEGATIVE) Accuchecks Date 06/15/19 Time 07:30 Accucheck Value: 129 Accucheck Value: 93 Accucheck Value: 99 - Radiology Impressions Radiology Exams & Impressions: Radiology Procedures Category Date Time Status CHEST 1 VIEW (PORTABLE) Stat Exams 06/14/19 22:47 Taken HEAD WITHOUT CONTRAST [CT] Stat Exams 06/14/19 22:12 Taken KIDNEY [US] Routine Exams 06/15/19 Ordered - Other Procedures and Tests Respiratory Therapy 06/14/19 23:40 Respiratory Therapy Assessment DAILY 06/15/19 04:31 Oxygen Nasal Cannula 2 lpm 06/15/19 07:00 Respiratory MDI BID Assessment/Plan (1) Acute on chronic renal failure Current Visit: Yes Status: Acute Assessment & Plan: likely related to NSAID use and current diarrheal illness, mild improvement in bun/cr with hydration overnight. will hold lasix, d/c nsaids and continue hydration. Dr Biggs has been consulted Code(s): N17.9 - ACUTE KIDNEY FAILURE, UNSPECIFIED; N18.9 - CHRONIC KIDNEY DISEASE, UNSPECIFIED (2) Diarrhea Current Visit: Yes Status: Acute Assessment & Plan: stool for GI pathogen panel ordered Code(s): R19.7 - DIARRHEA, UNSPECIFIED (3) Pneumonia Current Visit: No Status: Acute Assessment & Plan: on rocephin and zithromax for right perihilar infiltrate with cough and yellow sputum production. Code(s): J18.9 - PNEUMONIA, UNSPECIFIED ORGANISM (4) Confusion Current Visit: Yes Status: Acute Assessment & Plan: med list reconciled, will hold multiple home meds including abilify and tizanidine, continue regular percocet to avoid withdrawals. Code(s): R41.0 - DISORIENTATION, UNSPECIFIED
[2019-06-15] MEDS ORDERED: NON-FORMULARY ITEM (Oxycodone Hcl/Acetaminophen [Oxycodon-Acetaminophen 7.5-325] 1 EACH) PO PRN (09:21)
[2019-06-15] MEDS ORDERED: PERCOCET TABLET 5/325MG PO PRN (10:00)
[2019-06-15] MEDS ORDERED: Zestril 10 MG PO SCH (10:00)
[2019-06-15] MEDS ORDERED: Zithromax 500 MG/ 250 ML NaCl Premix 500 MG/250 ML IVPB IV SCH (10:00)
[2019-06-15] MEDS ORDERED: NON-FORMULARY ITEM (Duloxetine Hcl [Duloxetine Hcl] 60 MG) PO SCH (10:00)
[2019-06-15] MEDS ORDERED: ROCEPHIN 1 Gm-D5w 50 ml Bag** 1 G/50 ML IVPB IV SCH ×2 (10:00)
[2019-06-15] MEDS ORDERED: NON-FORMULARY ITEM (Omeprazole [Omeprazole] 40 MG) PO SCH (10:00)
--- NOTE | 2019-06-15 10:25 | XRAY ---
Indication: Kidney failure. Two-dimensional renal sonogram performed. Comparison: January 11, 2016. Right kidney measures 8.3 x 4.9 x 4.0 cm and the left measures 9.0 x 5.3 x 4.2 cm. Previous nonobstructing 7 mm right mid renal calculus now measures 12 mm. Stable 11 mm right mid pole renal cyst and 3 cm right lobe hepatic cyst. Previous small left upper pole cyst was not visualized. Again no hydronephrosis. Cortical medullary differentiation preserved. Images of the nominally distended urinary bladder grossly unremarkable. Ureteral jets not seen within the allotted exam time. Impression: 1. Slightly enlarging nonobstructing right renal calculus. 2. Stable right renal and right lobe hepatic cysts. 3. Remaining renal sonogram is negative.
[2019-06-15] MEDS: Ecotrin 325 MG PO SCH (10:31)
[2019-06-15] MEDS: Toprol Xl 50 MG PO SCH (10:33)
[2019-06-15] MEDS: Protonix 40MG Tablet PO SCH (10:33)
[2019-06-15] MEDS: ZYLOPRIM 100 MG PO SCH (10:35)
[2019-06-15] MEDS: Cymbalta 30 MG Capsule PO SCH ×2 (10:53→22:42)
[2019-06-15 15:42] LABS: Campylobacter NEGATIVE (NEGATIVE)
[2019-06-15 15:43] LABS: C. Difficile Organism POSITIVE (NEGATIVE); Plesiomonas shigelloides NEGATIVE (NEGATIVE); Salmonella NEGATIVE (NEGATIVE); Vibrio POSITIVE (NEGATIVE)
[2019-06-15 15:44] LABS: Adenovirus F 40/41 NEGATIVE (NEGATIVE); Astrovirus NEGATIVE (NEGATIVE); Cryptosporidium NEGATIVE (NEGATIVE); Cyclospora cayentanensis NEGATIVE (NEGATIVE); Entamoeaba histolytica NEGATIVE (NEGATIVE); Enteroaggregative E.coli NEGATIVE (NEGATIVE); Enteropathogenic E.coli NEGATIVE (NEGATIVE); Enterotoxigenic E.coli NEGATIVE (NEGATIVE); Giardia lamblia NEGATIVE (NEGATIVE); Norovirus GI/GII NEGATIVE (NEGATIVE); Rotavirus A NEGATIVE (NEGATIVE); Sapovirus NEGATIVE (NEGATIVE); Shiga-like toxin prod.E.coli NEGATIVE (NEGATIVE); Vibrio cholerae NEGATIVE (NEGATIVE); Yersinia enterocolitica NEGATIVE (NEGATIVE)
[2019-06-15] MEDS: FLAGYL 500 MG IVPB 500 MG/100 ML BAG IV SCH ×2 (18:19→23:58)
[2019-06-15] MEDS: NEURONTIN 300 MG PO SCH (22:43)
[2019-06-16] MEDS: Dextrose 5%-NS IV Solution 1000 ML 1,000 ML IV SCH ×2 (03:45→13:51)
[2019-06-16 04:55] LABS: Hematocrit 33.3 % (35-47); Hemoglobin 10.6 gm/dl (12.0-16.0); Mean Cell Volume 99.1 fl (78-100); Mean Corpuscular Hemoglobin 31.5 pg (26-32); Mean Corpuscular Hgb Concent. 31.8 g/dl (32-36); Platelet Count 465 K/mm3 (150-450); Red Blood Count 3.36 M/mm3 (4.1-5.4); Red Cell Distribution Width 14.4 % (11.5-14.0); White Blood Count 13.3 K/mm3 (4.0-10.5)
[2019-06-16 05:03] LABS: ALBUMIN 2.8 g/dL (3.5-5.0); ANION GAP 11.1 MEQ/L (5-15); BILIRUBIN,TOTAL 0.4 mg/dL (0.2-1.3); Creatinine 1 1.1 mg/dL (0.52-1.04); MAGNESIUM 1.5 mg/dL (1.6-2.3); Potassium 4.8 mmol/L (3.5-5.1); Total Protein 5.9 g/dL (6.3-8.2)
[2019-06-16 05:12] LABS: Calcium 9.4 mg/dL (8.4-10.2)
[2019-06-16] MEDS: FLAGYL 500 MG IVPB 500 MG/100 ML BAG IV SCH ×3 (06:03→17:03)
[2019-06-16] MEDS: PATIENT OWN MEDICATION IH SCH (07:29)
--- NOTE | 2019-06-16 08:45 | PCM.NOTE ---
Date and Time: 06/16/19 0844 Subjective Assessment: pt reports she is feeling much better at this time, still had several loose stools last night but her cough is improved and she is feeling much more alert and stronger Objective Exam General Appearance: no apparent distress, alert Skin Exam: normal color, warm, dry Respiratory Exam: normal breath sounds, lungs clear, No respiratory distress Cardiovascular Exam: regular rate/rhythm, normal heart sounds Gastrointestinal/Abdomen Exam: soft, No tenderness, No mass Extremity Exam: normal inspection, normal range of motion OBJECTIVE DATA Vital Signs: Vital Signs - 24 hr Temp Pulse Resp BP Pulse Ox 06/16/19 08:00 98.1 F 85 18 136/66 96 06/16/19 07:30 85 18 96 06/16/19 04:00 98.6 F 97 H 18 138/68 95 06/16/19 00:00 99.3 F 113 H 17 121/58 94 L 06/15/19 20:00 97.9 F 115 H 17 123/56 94 L 06/15/19 19:32 110 H 20 94 L 06/15/19 16:00 99.1 F 115 H 16 112/56 94 L 06/15/19 12:00 98.9 F 119 H 20 127/81 93 L 06/15/19 10:00 101 H 20 95 Oxygen-Last 24 hours Oxygen Flowrate (L/min)-RT 2 Oxygen Flowrate (L/min)-RT 2 Pain Assessment - Last Documented Pain Intensity 0 Pain Scale Used FLACC Intake and Output: Intake & Output 06/13/19 06/14/19 06/15/19 06/16/19 11:59 11:59 11:59 11:59 Intake Total 120 Balance 120 Weight 86 kg 84.6 kg Lab Results: Accuchecks Date 06/15/19 Date 06/15/19 Time 21:30 Accucheck Value: 123 Accucheck Value: 114 Accucheck Value: 121 Lab Results-Last 24 Hours 06/15/19 06/16/19 06/16/19 Range/Units 14:13 04:20 04:25 WBC 13.3 H (4.0-10.5) K/mm3 RBC 3.36 L (4.1-5.4) M/mm3 Hgb 10.6 L (12.0-16.0) gm/dl Hct 33.3 L (35-47) % MCV 99.1 (78-100) fl MCH 31.5 (26-32) pg MCHC 31.8 L (32-36) g/dl RDW 14.4 H (11.5-14.0) % Plt Count 465 H (150-450) K/mm3 MPV 9.0 (6-9.5) fl Absolute Granulocytes 9.90 H (1.4-6.9) Sodium 138 (137-145) mmol/L Potassium 4.8 (3.5-5.1) mmol/L Chloride 106 (98-107) mmol/L Carbon Dioxide 26 (22-30) mmol/L Anion Gap 11.1 (5-15) MEQ/L BUN 22 H (7-17) mg/dL Creatinine 1.10 H (0.52-1.04) mg/dL Estimated GFR 52.0 ML/MIN Glucose 119 H (74-106) mg/dL Calcium 9.4 D (8.4-10.2) mg/dL Magnesium 1.5 L (1.6-2.3) mg/dL Total Bilirubin 0.40 (0.2-1.3) mg/dL AST 16 (14-36) U/L ALT 13 (0-35) U/L Alkaline Phosphatase 75 (38-126) U/L Serum Total Protein 5.9 L (6.3-8.2) g/dL Albumin 2.8 L (3.5-5.0) g/dL Stl C. cayetanensis PCR NEGATIVE (NEGATIVE) Stl Adenov F 40/41 PCR NEGATIVE (NEGATIVE) Stool Astrovirus (PCR) NEGATIVE (NEGATIVE) Stool Cryptosporidium PCR NEGATIVE (NEGATIVE) Stool EPEC (PCR) NEGATIVE (NEGATIVE) Stool EAEC (PCR) NEGATIVE (NEGATIVE) Stl E. histolytica PCR NEGATIVE (NEGATIVE) Stl P. shigelloides PCR NEGATIVE (NEGATIVE) Stool Sapovirus (PCR) NEGATIVE (NEGATIVE) St Y.enterocolitica PCR NEGATIVE (NEGATIVE) Stool Vibrio (PCR) POSITIVE A (NEGATIVE) Stl Vibrio cholerae PCR NEGATIVE (NEGATIVE) Stl Norovirus GI/GII PCR NEGATIVE (NEGATIVE) Campylobacter (PCR) NEGATIVE (NEGATIVE) C. difficile (PCR) POSITIVE A (NEGATIVE) Enterotoxigenic E. coli NEGATIVE (NEGATIVE) E.coli Shiga Toxins NEGATIVE (NEGATIVE) Giardia lamblia NEGATIVE (NEGATIVE) Rotavirus A (PCR) NEGATIVE (NEGATIVE) Salmonella (PCR) NEGATIVE (NEGATIVE) Shigella (PCR) NEGATIVE (NEGATIVE) Radiology Exams: Radiology Procedures Category Date Time Status CHEST 1 VIEW (PORTABLE) Stat Exams 06/14/19 22:47 Completed HEAD WITHOUT CONTRAST [CT] Stat Exams 06/14/19 22:12 Completed KIDNEY [US] Routine Exams 06/15/19 09:52 Completed Assessment/Plan (1) Acute on chronic renal failure Current Visit: Yes Status: Acute Assessment & Plan: dramatically improved with hydration, cessation of NSAIDs and holding lasix, appeared to be pre-renal in etiology. will continue to monitor Code(s): N17.9 - ACUTE KIDNEY FAILURE, UNSPECIFIED; N18.9 - CHRONIC KIDNEY DISEASE, UNSPECIFIED (2) Diarrhea Current Visit: Yes Status: Acute Assessment & Plan: vibrio and c diff on culture, flagyl started Code(s): R19.7 - DIARRHEA, UNSPECIFIED (3) Pneumonia Current Visit: No Status: Acute Assessment & Plan: improved symptoms, on rocephin and zithromax Code(s): J18.9 - PNEUMONIA, UNSPECIFIED ORGANISM (4) Confusion Current Visit: Yes Status: Acute Code(s): R41.0 - DISORIENTATION, UNSPECIFIED
[2019-06-16 08:47] LABS: Eosinophil 1 % (0.00-3.0); Lymphocytes 15 % (24-44); Monocyte 2 % (0.0-12.0); Neutrophils 82 % (36.0-66.0); Total Cells Counted 100
[2019-06-16 08:48] LABS: ANISOCYTOSIS 1+; Platelet Estimate NORMAL (NORMAL); Poikilocytosis RARE; Toxic Granulation 1+
[2019-06-16] MEDS: Cymbalta 30 MG Capsule PO SCH ×2 (09:19→22:21)
[2019-06-16] MEDS: Toprol Xl 50 MG PO SCH (09:19)
[2019-06-16] MEDS: Ecotrin 325 MG PO SCH (09:19)
[2019-06-16] MEDS: ZYLOPRIM 100 MG PO SCH (09:19)
[2019-06-16] MEDS: VANCOMYCIN HCL CAPSULE PO SCH ×4 (09:19→22:20)
[2019-06-16] MEDS: Protonix 40MG Tablet PO SCH (09:19)
--- NOTE | 2019-06-16 09:36 | CONS ---
CONSULT DATE: 06/15/2019 REASON FOR CONSULT: Acute renal failure, hyperkalemia. HISTORY: The patient is a 69 year-old lady who has been seen in the office. She was last seen in September and was lost to follow up. Her baseline creatinine is around 0.9. She apparently has been feeling poorly for the last few days, having diarrhea for the last two or three days, has nausea and poor appetite, not been feeling well. She was apparently confused and was not feeling well and was getting progressively worse so she was brought to the hospital. She was found to have potassium of 6.8, BUN 61, creatinine 3.16 so nephrology was consulted. The patient complains of poor appetite, denies any active nausea. Complains of feeling sleepy, had some diarrhea. Denied any urinary difficulties. She received Kayexalate, calcium gluconate as medical management of hyperkalemia. Her labs today showed potassium 5.4, BUN 51, creatinine 2.42, calcium 11.2. REVIEW OF SYSTEMS: All other systems were reviewed positive for fatigue, malaise, some feeling sleepy, poor appetite, some diarrhea. She complains of nausea. No active vomiting. All systems reviewed negative except as listed above. PAST MEDICAL HISTORY: Hypertension. Hyperlipidemia. Osteoarthritis. Gout. Fibromyalgia. Chronic obstructive pulmonary disease. Gastroesophageal reflux disease. Depression. Psoriatic osteoarthritis. PAST SURGICAL HISTORY: Left wrist orthopedic surgery. Hysterectomy. Right and left knee. Tumor on left side removed. Bladder surgery. Cataract surgery. MEDICATIONS: Home medicines and medicine in the hospital reviewed per the medication reconciliation sheet. Her home medications include furosemide, lisinopril, meloxicam, potassium, etodolac along with other medications. ALLERGIES: SULFA. MORPHINE. SOCIAL HISTORY: She has past history of smoking. Denies any tobacco, alcohol or substance abuse. and lives with her . FAMILY HISTORY: Reviewed. PHYSICAL EXAMINATION: The patient is drowsy, lethargic but arousable, not in acute distress. Vital signs noted. HEENT: Head - Atraumatic, normocephalic. Eyes - Nonicterus. ENT: Mucosa dry. NECK: No JVD. Trachea midline. CHEST: Clear to auscultation bilaterally. No respiratory distress. CVS: Appears regular. No peripheral edema. ABDOMEN: Soft, nontender. Positive bowel sounds. No organomegaly. EXTREMITIES: No peripheral edema. NEURO: Sleepy but arousable, not in acute distress, moving all extremities, answering questions. PSYCH: Depressed mood and affect. SKIN: Warm and dry. LAB DATA AND TESTS: Sodium yesterday 130, potassium 6.8, BUN 61, creatinine 3.16. Today potassium 5.4, BUN 59, creatinine 2.42. Hemoglobin 10.6, white blood cell count 19.5. Stool for Clostridium difficile positive. UA reviewed. Chest x-ray showed some right perihilar infiltrate, increased vascular markings. Head CT no acute process. ASSESSMENT AND PLAN: 1) A 69 year-old lady with multiple medical problems with acute kidney injury with severe dehydration, ATN, anticoagulation being on lisinopril, dehydration in terms of diarrhea and diuretic and NSAID's causing nephrotoxicity as well. I agree with holding and avoiding NSAID's. I will stop lisinopril as well. I agree with holding diuretic. I agree with normal saline IV fluids. I recommend monitoring fluids, electrolytes and renal functions closely. I recommend Frias catheter monitoring input and output. 2) Hyperkalemia secondary to acute kidney injury, NSAID's, lisinopril and potassium. I will stop lisinopril. Her potassium and NSAID's have already been stopped. Monitor potassium level closely. 3) Clostridium difficile, diarrhea and leukocytosis: The patient is on Flagyl with management per Dr. López. 4) Hypertension: I recommend stopping lisinopril and using alternative agents. 5) Hyperlipidemia: She may resume her Simvastatin. 6) Encephalopathy: Could be related to psychiatric medication, could be related gabapentin and I recommend lowering the dose of gabapentin. Further management per primary team. 7) Hyperkalemia: Could be secondary to dehydration. Monitor carefully. I will repeat levels tomorrow, give IV fluids. I will also check PTH and vitamin D level. The patient was accompanied by and all questions were answered. Thank you for the consultation on this patient. Please do not hesitate to contact me for any questions.
[2019-06-16] MEDS ORDERED: Zithromax 500 MG/ 250 ML NaCl Premix 500 MG/250 ML IVPB IV SCH (10:00)
[2019-06-16] MEDS ORDERED: ROCEPHIN 1 Gm-D5w 50 ml Bag** 1 G/50 ML IVPB IV SCH (10:00)
[2019-06-16 10:37] LABS: Iron 36 ug/dL (37-170); Iron Saturation 16 % (20-39); TIBC 231 ug/dL (265-462)
[2019-06-16 11:22] LABS: Folate (Folic Acid) 8.14 ng/mL (2.76 - >20)
[2019-06-16] MEDS: NEURONTIN 300 MG PO SCH (22:21)
[2019-06-17] MEDS: FLAGYL 500 MG IVPB 500 MG/100 ML BAG IV SCH ×2 (00:35→05:52)
[2019-06-17] MEDS: Dextrose 5%-NS IV Solution 1000 ML 1,000 ML IV SCH (00:50)
[2019-06-17 06:00] LABS: Hematocrit 31.2 % (35-47); Mean Cell Volume 97.8 fl (78-100); Mean Corpuscular Hemoglobin 31.3 pg (26-32); Mean Corpuscular Hgb Concent. 32.1 g/dl (32-36); Platelet Count 444 K/mm3 (150-450); Red Blood Count 3.19 M/mm3 (4.1-5.4); Red Cell Distribution Width 14.1 % (11.5-14.0); White Blood Count 11.6 K/mm3 (4.0-10.5)
[2019-06-17 08:24] VITALS: BP 145/65; PULSE 61; O2SAT 94
[2019-06-17 08:53] LABS: ALBUMIN 2.6 g/dL (3.5-5.0); ALKALINE PHOSPHATASE 60 U/L (38-126); ANION GAP 10.6 MEQ/L (5-15); BLOOD UREA NITROGEN 13 mg/dL (7-17); CHLORIDE 110 mmol/L (98-107); Calcium 8.8 mg/dL (8.4-10.2); Carbon Dioxide 24 mmol/L (22-30); Creatinine 1 0.71 mg/dL (0.52-1.04); Glucose 109 mg/dL (74-106); Potassium 3.9 mmol/L (3.5-5.1); SGOT/AST 19 U/L (14-36); SGPT/ALT 13 U/L (0-35); SODIUM 141 mmol/L (137-145); Total Protein 5.6 g/dL (6.3-8.2)
--- NOTE | 2019-06-17 08:53 | PCM.DS ---
Discharge Summary Date of Admission: 06/15/19 08:34 Admitting Physician: ZOYA DURHAM Consults: Consults on Case 06/15/19 08:09 Consult Nephrology ROUTINE Primary Care Provider: JOSE ABAD Allergies Allergies Sulfa (Sulfonamide Antibiotics) Allergy (Verified 06/14/19 22:26) morphine Adverse Reaction (Verified 06/14/19 22:28) Hospital Summary - Hospital Course Hospital Course: patient was admitted with weakness, persistent diarrhea and cough. found to have c diff and vibrio on stool GI panel. she has improved with hydration, renal function normalized. - Vitals & Intake/Output Vital Signs: Vital Signs Temperature 98.8 F 06/17/19 08:00 Pulse Rate 61 06/17/19 08:00 Respiratory Rate 20 06/17/19 08:00 Blood Pressure 145/65 06/17/19 08:00 O2 Sat by Pulse Oximetry 94 L 06/17/19 08:00 Oxygen-Last Documented O2 Percentage 2 Liters = 28% Intake & Output: Intake & Output 06/14/19 06/15/19 06/16/19 06/17/19 11:59 11:59 11:59 11:59 Intake Total 360 3799 Output Total 850 1550 Balance -490 2249 Weight 86 kg 84.6 kg 61.5 kg - Lab Result Diagrams: 06/17/19 05:00 06/16/19 04:25 Lab Results-Last 24 Hrs: Accuchecks Date 06/16/19 Time 21:30 Accucheck Value: 116 Accucheck Value: 120 Accucheck Value: 102 Accucheck Value: 101 Lab Results-Last 24 Hours 06/16/19 06/16/19 06/16/19 Range/Units 04:15 04:15 04:15 WBC (4.0-10.5) K/mm3 RBC (4.1-5.4) M/mm3 Hgb (12.0-16.0) gm/dl Hct (35-47) % MCV (78-100) fl MCH (26-32) pg MCHC (32-36) g/dl RDW (11.5-14.0) % Plt Count (150-450) K/mm3 MPV (6-9.5) fl Segmented Neutrophils (36.0-66.0) % Lymphocytes (Manual) (24-44) % Monocytes (Manual) (0.0-12.0) % Eosinophils (Manual) (0.00-3.0) % Toxic Granulation Platelet Estimate (NORMAL) RBC Morphology Poikilocytosis Anisocytosis Hemoglobin A1c 5.56 (4.5-6.0) % Magnesium (1.6-2.3) mg/dL Iron 36 L (37-170) ug/dL TIBC 231 L (265-462) ug/dL Iron Saturation 16 L (20-39) % Ferritin 127 (11.1-264) ng/mL Vitamin B12 844 (239-931) pg/mL 25-OH Vitamin D Total < 12.8 L (30-100) ng/mL Folic Acid 8.14 (2.76 - >20) ng/mL 06/16/19 06/17/19 06/17/19 Range/Units 04:20 05:00 05:00 WBC 11.6 H (4.0-10.5) K/mm3 RBC 3.19 L (4.1-5.4) M/mm3 Hgb 10.0 L (12.0-16.0) gm/dl Hct 31.2 L (35-47) % MCV 97.8 (78-100) fl MCH 31.3 (26-32) pg MCHC 32.1 (32-36) g/dl RDW 14.1 H (11.5-14.0) % Plt Count 444 (150-450) K/mm3 MPV 9.0 (6-9.5) fl Segmented Neutrophils 82 H (36.0-66.0) % Lymphocytes (Manual) 15 L (24-44) % Monocytes (Manual) 2 (0.0-12.0) % Eosinophils (Manual) 1 (0.00-3.0) % Toxic Granulation 1+ Platelet Estimate NORMAL (NORMAL) RBC Morphology ABNORMAL Poikilocytosis RARE Anisocytosis 1+ Hemoglobin A1c (4.5-6.0) % Magnesium 1.5 L (1.6-2.3) mg/dL Iron (37-170) ug/dL TIBC (265-462) ug/dL Iron Saturation (20-39) % Ferritin (11.1-264) ng/mL Vitamin B12 (239-931) pg/mL 25-OH Vitamin D Total (30-100) ng/mL Folic Acid (2.76 - >20) ng/mL Micro Results-Entire Visit: Microbiology 06/15/19 19:00 Urine Culture - Final Urine, Indwelling Catheter NO GROWTH 06/14/19 23:15 Blood Culture - Preliminary Blood NO GROWTH TO DATE 06/14/19 22:20 Blood Culture - Preliminary Blood NO GROWTH TO DATE Accuchecks Date 06/16/19 Time 21:30 Accucheck Value: 116 Accucheck Value: 120 Accucheck Value: 102 Accucheck Value: 101 - Radiology Exams Ordered Rad Exams-Entire Visit: Radiology Procedures Category Date Time Status KIDNEY [US] Routine Exams 06/15/19 09:52 Completed - Procedures and Test Procedures and Tests throughout Hospitalization: Therapy Orders & Screens 06/14/19 23:40 Respiratory Therapy Assessment DAILY Comment: Respiratory Therapy Consult ONCE Comment: Reason For Exam: 06/15/19 04:31 Oxygen Nasal Cannula 2 lpm Comment: Diagnosis: acute renal failure, hyperkalemia, confusion 06/15/19 07:00 Peak Expiratory Flow Rate ONCE Comment: Reason For Exam: Diagnosis: acute renal failure, hyperkalemia, confusion Respiratory MDI BID Comment: Diagnosis: acute renal failure, hyperkalemia, confusion Discharge Exam General Appearance: no apparent distress, alert Neurologic Exam: alert, oriented x 3, cooperative Eye Exam: PERRL, EOMI, eyes nml inspection Respiratory Exam: normal breath sounds, lungs clear, No respiratory distress Cardiovascular Exam: regular rate/rhythm, normal heart sounds Gastrointestinal/Abdomen Exam: soft, No tenderness, No mass Skin Exam: normal color, warm, dry Final Diagnosis/Problem List - Final Discharge Diagnosis/Problem (1) Acute on chronic renal failure Current Visit: Yes Status: Acute Code(s): N17.9 - ACUTE KIDNEY FAILURE, UNSPECIFIED; N18.9 - CHRONIC KIDNEY DISEASE, UNSPECIFIED (2) Diarrhea Current Visit: Yes Status: Acute Code(s): R19.7 - DIARRHEA, UNSPECIFIED (3) Pneumonia Current Visit: No Status: Acute Code(s): J18.9 - PNEUMONIA, UNSPECIFIED ORGANISM (4) Confusion Current Visit: Yes Status: Acute Code(s): R41.0 - DISORIENTATION, UNSPECIFIED - Discharge Disposition: Home, Self-Care Condition: Good Prescriptions: New Metronidazole [Flagyl] 500 mg PO QID #40 tablet Continue Lisinopril 10 mg [Zestril 10 MG] 10 mg PO DAILY Metoprolol Succinate 50 mg [Toprol Xl 50 MG] 50 mg PO DAILY Simvastatin 40 mg [Zocor 40 mg] 40 mg PO HS Omeprazole 40 mg PO DAILY Oxycodone HCl/Acetaminophen [Oxycodon-Acetaminophen 7.5-325] 1 each PO Q4H PRN PRN PRN Reason: Pain Tizanidine HCl 4 mg [Zanaflex 4 MG] 4 mg PO Q6H PRN PRN PRN Reason: Muscle Spasms Gabapentin 300 mg PO HS Fluticasone Propion/Salmeterol [Fluticasone-Salmeterol 250-50] 1 each IH BID Duloxetine HCl 60 mg PO BID Aspirin EC 325 mg [Ecotrin 325 MG] 325 mg PO DAILY Aripiprazole [Abilify] 20 mg PO DAILY Allopurinol 100 mg [Zyloprim 100 mg] 100 mg PO DAILY Alendronate Sodium 70 mg [Fosamax 70 MG] 70 mg PO Q7D@0600 Etodolac 400 mg PO BID Calcifediol [Rayaldee] 30 mcg PO DAILY Discontinued Potassium Chloride 10 Meq Tab* [Klor Con 10 MEQ] 10 meq PO DAILY Furosemide [Lasix] 40 mg PO DAILY Follow up with: ZOYA DURHAM MD [ACTIVE STAFF] - 06/27/19 9:15 am SNOW GRAFF [ACTIVE STAFF] - 09/29/19 1:30 pm MEENA FLORENTINO [CONSULTING PHYSICIAN] - 1 Week
[2019-06-17] MEDS: Protonix 40MG Tablet PO SCH (09:58)
[2019-06-17] MEDS: Toprol Xl 50 MG PO SCH (09:58)
[2019-06-17] MEDS: Ecotrin 325 MG PO SCH (09:58)
[2019-06-17] MEDS: Cymbalta 30 MG Capsule PO SCH (09:58)
[2019-06-17] MEDS: ZYLOPRIM 100 MG PO SCH (09:58)
[2019-06-17] MEDS: VANCOMYCIN HCL CAPSULE PO SCH (09:58)
== END 2019-06-17 11:20 | disposition home or self-care (01) | DRG 682 ==
LOC: ED 22:06 → MED SURG 06-15 03:01 → OBSVTOIN 06-15 08:34
PROVIDERS: ADMIT Family Medicine; ATTEND Family Medicine
DX: N17.9 Acute kidney failure, unspecified (principal); J18.9 Pneumonia, unspecified organism; A04.72 Enterocolitis due to Clostridium difficile, not specified as recurrent; R41.0 Disorientation, unspecified; E87.5 Hyperkalemia; I12.9 Hypertensive chronic kidney disease with stage 1 through stage 4 chronic kidney disease, or unspecified chronic kidney disease; E11.22 Type 2 diabetes mellitus with diabetic chronic kidney disease; J44.9 Chronic obstructive pulmonary disease, unspecified; E78.5 Hyperlipidemia, unspecified; E86.0 Dehydration; Z79.01 Long term (current) use of anticoagulants; Z79.899 Other long term (current) drug therapy
CPT/HCPCS: 36000; 36415; 70450; 71045; 76770; 80048; 80053; 80307; 81001; 82140; 82306; 82607; 82728; 82746; 82962; 83036; 83540; 83550; 83605; 83735; 83970; 85025; 85027; 87040; 87086; 87507; 93005; 93041; 94640; 94760; 96360; 96365; 96374; 96375; 99285; 99291; P9612; J0456; J0696; J7609; A9270-GY

== ENCOUNTER 2019-07-27 13:12 | Day surgery (SDC) | payer MEDICARE ==
[2019-07-27] MEDS ORDERED: Marcaine 0.5% SDV 10 ML IJ ONE (13:13)
[2019-07-27] MEDS ORDERED: Depo-Medrol 40 MG/ML IM ONE (13:13)
[2019-07-27] MEDS ORDERED: Ketamine HCl 50 MG/ML ONE (14:12)
[2019-07-27] MEDS ORDERED: DIPRIVAN 200 MG/20 ML IV ONE (14:12)
--- NOTE | 2019-07-27 15:41 | XRAY ---
Indication: Right SI joint injection. Intraoperative fluoroscopy was provided 11 seconds. 2 digital spot images submitted for interpretation demonstrates posterior needle tip projecting over the inferior right SI joint. Correlate with intraoperative findings/report.
--- NOTE | 2019-07-27 15:53 | XRAY ---
11 seconds fluoroscopy time in surgery for right SI joint injection.
[2019-07-27] MEDS ORDERED: Lactated Ringers 1,000 ML IV ONE (16:02)
== END 2019-07-27 14:37 | disposition home or self-care (01) ==
LOC: SDC-PAIN 13:12
PROVIDERS: ATTEND Psychiatry & Neurology Pain Medicine
DX: M46.1 Sacroiliitis, not elsewhere classified (principal); E11.9 Type 2 diabetes mellitus without complications; J44.9 Chronic obstructive pulmonary disease, unspecified; K21.9 Gastro-esophageal reflux disease without esophagitis; M06.9 Rheumatoid arthritis, unspecified; I10 Essential (primary) hypertension; F41.8 Other specified anxiety disorders; Z79.899 Other long term (current) drug therapy
CPT/HCPCS: 72020; 77002; 82962; G0260; 27096; 99100; J1030; J2704

== ENCOUNTER 2019-08-31 10:19 | Day surgery (SDC) | payer MEDICARE ==
[2019-08-31] MEDS ORDERED: Depo-Medrol 40 MG/ML IM ONE (10:20)
[2019-08-31] MEDS ORDERED: Xylocaine 1% Vial 30 ML PF IJ ONE (10:20)
[2019-08-31] MEDS ORDERED: Marcaine 0.5% SDV 10 ML IJ ONE (10:20)
[2019-08-31] MEDS ORDERED: DIPRIVAN 200 MG/20 ML IV ONE (12:29)
[2019-08-31] MEDS ORDERED: Ketamine HCl 50 MG/ML ONE (12:30)
--- NOTE | 2019-08-31 13:06 | XRAY ---
27 seconds fluoroscopy time in surgery for right SI joint injection.
--- NOTE | 2019-08-31 13:20 | XRAY ---
Indication: Right SI joint RFA. Intraoperative fluoroscopy was provided for 27 seconds. 3 digital spot images submitted for interpretation demonstrates 4 posterior needle tips projecting over the right sacrum/sacral nerve roots. Correlate with intraoperative findings/report.
[2019-08-31] MEDS ORDERED: Lactated Ringers 1,000 ML IV ONE (13:32)
== END 2019-08-31 13:01 | disposition home or self-care (01) ==
LOC: SDC-PAIN 10:19
PROVIDERS: ATTEND Psychiatry & Neurology Pain Medicine
DX: M46.1 Sacroiliitis, not elsewhere classified (principal); E11.9 Type 2 diabetes mellitus without complications; J44.9 Chronic obstructive pulmonary disease, unspecified; K21.9 Gastro-esophageal reflux disease without esophagitis; M06.9 Rheumatoid arthritis, unspecified; I10 Essential (primary) hypertension; F41.8 Other specified anxiety disorders; Z79.899 Other long term (current) drug therapy
CPT/HCPCS: 64625; 72202; 77002; 82962; 99100; J1030; J2001; J2704; Q9966

== ENCOUNTER 2020-01-20 18:51 | Emergency (ER) | payer MEDICARE ==
[2020-01-20] MEDS ORDERED: Sodium Chloride 0.9% 1000 ML 1,000 ML IV STA (19:16)
[2020-01-20] MEDS ORDERED: Inapsine 5 MG/2 ML IV ONE (19:16)
[2020-01-20] MEDS ORDERED: TYLENOL EXTRA STRENGTH 500 MG PO STA (19:17)
[2020-01-20] MEDS ORDERED: BENADRYL 50 MG/ML IV ONE (19:17)
[2020-01-20 19:30] VITALS: O2SAT 96
[2020-01-20 19:46] LABS: Absolute Neutrophil Ct (ANC) 10.56 (1.4-6.9); BASOPHIL % 0.2 % (0.0-0.4); Basophil (Absolute #) 0.02 (0-0.4); Eosinophil (Absolute #) 0.13 (0-0.5); Hematocrit 37.3 % (35-47); Hemoglobin 11.7 gm/dl (12.0-16.0); Lymphocyte (Absolute #) 1.72 (1.0-4.6); Lymphocytes % 12.9 % (24.0-44.0); Mean Cell Volume 88.6 fl (78-100); Mean Corpuscular Hemoglobin 27.8 pg (26-32); Mean Corpuscular Hgb Concent. 31.4 g/dl (32-36); Mean Platelet Volume 9.9 fl (7.5-11.0); Monocytes % 6.8 % (0.0-12.0); Neutrophil % 79.1 % (36.0-66.0); Platelet Count 289 K/mm3 (150-450); Red Blood Count 4.21 M/mm3 (4.1-5.4); Red Cell Distribution Width 15.2 % (11.5-14.0); White Blood Count 13.3 K/mm3 (4.0-10.5)
--- NOTE | 2020-01-20 19:46 | ERPHSYRPT ---
- History of Present Illness Time Seen by Provider: 01/20/20 18:52 Source: patient Exam Limitations: no limitations Patient Subjective Stated Complaint: pt states that she woke up this morning with the worst headache ever, pt states that she just finished medication for sinuses, pt states that she is having nausea, pt states that she has been sleeping on and off all day, pt states that she does normally have headaches Triage Nursing Assessment: pt came into the er via wheelchair, pt is axo x3, pt ears are clear no reddness and no drainage present, throat is clear and pink, nasal cavity clear, lung sounds clear, strengths strong in all extremities, c/o 10/10 pain to head, active bowel sounds in all quads, hypertensive, tachycardic Physician History: Location: frontal headache Quality: sharp, sinus pressure Radiation: none Severity: severe Duration: this AM Timing: gradual, not thunderclap Modifying factors/associated signs and symptoms: none tried Patient is here with sinus pressure, frontal headache, signs and symptoms of sinusitis. Patient states that she typically does not get headaches. Typically does not get sinus headaches. Recently on sinus medications . Timing/Duration: today Severity: moderate Allergies/Adverse Reactions: Sulfa (Sulfonamide Antibiotics) Allergy (Verified 01/20/20 19:30) morphine Adverse Reaction (Verified 01/20/20 19:30) Home Medications: Lisinopril 10 mg [Zestril 10 MG] 10 mg PO DAILY 05/19/13 [History] Metoprolol Succinate 50 mg [Toprol Xl 50 MG] 50 mg PO DAILY 05/19/13 [ History] Simvastatin 40 mg [Zocor 40 mg] 40 mg PO HS 10/30/13 [History] Omeprazole 40 mg PO DAILY 03/06/18 [History] Allopurinol 100 mg [Zyloprim 100 mg] 100 mg PO DAILY 06/15/19 [History] Aripiprazole [Abilify] 20 mg PO DAILY 06/15/19 [History] Calcifediol [Rayaldee] 30 mcg PO DAILY 06/15/19 [History] Fluticasone Propion/Salmeterol [Fluticasone-Salmeterol 250-50] 1 each IH BID 01/26 [History] Gabapentin 300 mg PO HS 06/15/19 [History] Oxycodone HCl/Acetaminophen [Oxycodon-Acetaminophen 7.5-325] 1 each PO Q4H PRN PRN 06/15/19 [History] Aspirin 81 mg PO 01/20/20 [History] Hx Tetanus, Diphtheria Vaccination/Date Given: Yes Hx Influenza Vaccination/Date Given: Yes Hx Pneumococcal Vaccination/Date Given: Yes Travel Risk - International Travel Have you traveled outside of the country in past 3 weeks: No - Coronavirus Screening Are you exhibiting any of the following symptoms?: Yes Close contact with a COVID-19 positive Pt in past 14-21 Days: No - Review of Systems Constitutional: No Fever, No Chills Eyes: No Symptoms Ears, Nose, & Throat: No Symptoms Respiratory: No Cough, No Dyspnea Cardiac: No Chest Pain, No Edema, No Syncope Abdominal/Gastrointestinal: No Abdominal Pain, No Nausea, No Vomiting, No Diarrhea Genitourinary Symptoms: No Dysuria Musculoskeletal: No Back Pain, No Neck Pain Skin: No Rash Neurological: Headache (Sinus pressure, headache), No Dizziness, No Focal Weakness, No Sensory Changes Psychological: No Symptoms Endocrine: No Symptoms All Other Systems: Reviewed and Negative - Past Medical History Pertinent Past Medical History: Yes Neurological History: No Pertinent History ENT History: Cataracts Cardiac History: Hypertension Respiratory History: COPD Endocrine Medical History: Diabetes Type II Musculoskeletal History: Arthritis, Fibromyalgia, Other GI Medical History: GERD, Irritable Bowel History: No Pertinent History Psycho-Social History: Depression Female Reproductive Disorders: No Pertinent History Other Medical History: PSORIATIC OA - Past Surgical History Past Surgical History: Yes Neuro Surgical History: No Pertinent History Cardiac: No Pertinent History Respiratory: No Pertinent History Gastrointestinal: No Pertinent History Genitourinary: Other Musculoskeletal: Joint Replacement, Orthopedic Surgery Female Surgical History: Hysterectomy Other Surgical History: RIGHT AND LEFT KNEE, TUMOR ON LEFT SIDE REMOVED, BLADDER TACT. cataract removed from left eye, orif of left wrist - Social History Smoking Status: Former smoker How long have you smoked: 3 years Exposure to second hand smoke: Yes Alcohol Use: None Drug Use: none Patient Lives Alone: No Significant Family History: diabetes, hypertension - Nursing Vital Signs Nursing Vital Signs: Initial Vital Signs Temperature 100.1 F 01/20/20 19:08 Pulse Rate 111 H 01/20/20 19:08 Respiratory Rate 16 01/20/20 19:08 Blood Pressure 161/72 01/20/20 19:08 O2 Sat by Pulse Oximetry 96 01/20/20 19:08 Pain Scale Pain Intensity 10 - Physical Exam General Appearance: no apparent distress, alert Eye Exam: PERRL/EOMI, eyes nml inspection Ears, Nose, Throat Exam: normal ENT inspection, TMs normal, pharynx normal, moist mucous membranes Neck Exam: normal inspection, non-tender, supple, full range of motion Respiratory Exam: normal breath sounds, lungs clear, No respiratory distress Cardiovascular Exam: regular rate/rhythm, normal heart sounds, normal peripheral pulses Gastrointestinal/Abdomen Exam: soft, normal bowel sounds, No tenderness, No mass Back Exam: normal inspection, normal range of motion, No CVA tenderness, No vertebral tenderness Extremity Exam: normal inspection, normal range of motion, pelvis stable Neurologic Exam: alert, oriented x 3, cooperative, normal mood/affect, nml cerebellar function, nml station & gait, sensation nml, No motor deficits Skin Exam: normal color, warm, dry, No rash Lymphatic Exam: No adenopathy SpO2 Interpretation: normal SpO2: 96 Comments: 01/20/20 19:45 No trismus, able to fully extend neck, normal range of motion of neck without pain. Uvula is midline, no swelling of the mouth, noraml oropharynx. No exudate, no signs of meningitis, no floor of mouth swelling, no hot potato voice on exam. No buccal swelling, no gum bleeding, no signs of tooth abscess/infection. No obvious deformity, sensation intact, 2+ capillary refill, 2 point tactile discrimination intact. 5 out of 5 strength. Full range of motion without pain. Compartments are soft, nontender. Overlying skin shows no tenting, bruising, ecchymosis. Motor: There is no pronator drift of out-stretched arms. Muscle bulk and tone are normal. Strength is full bilaterally. Reflexes: Reflexes are 2+ and symmetric at the biceps, triceps, knees, and ankles. Plantar responses are flexor. Sensory: Light touch sense are intact in bilateral upper and lower extremities. There is no sign of neglect. Coordination: Rapid alternating movements are intact. There is no dysmetria on [id number] and [id number]. There are no abnormal or extraneous movements. Romberg is absent. Gait/Stance: Posture is normal. Gait is steady with normal steps, base, arm swing, and turning. Heel and toe walking are normal. Tandem gait is normal. Ordered Tests: Active Orders 24 hr Category Date Time Status EKG-ER Only STAT Care 01/20/20 19:16 Active IV Insertion STAT Care 01/20/20 19:16 Active HEAD WITHOUT CONTRAST [CT] Stat Exams 01/20/20 19:16 Completed CBC W DIFF Stat Lab 01/20/20 19:45 Completed CMP Stat Lab 01/20/20 19:45 Completed UA W/RFX UR CULTURE Stat Lab 01/20/20 20:18 Completed Medication Summary Discontinued Medications Generic Name Dose Route Start Last Admin Trade Name Freq PRN Reason Stop Dose Admin Acetaminophen 1,000 mg 01/20/20 19:17 01/20/20 19:59 Tylenol Extra Strength 500 Mg PO 01/20/20 19:18 1,000 mg STAT STA Administration Acetaminophen Confirm 01/20/20 19:56 Tylenol Extra Strength 500 Mg Administered 01/20/20 19:57 Dose 1,000 mg .ROUTE .STK-MED ONE Diphenhydramine HCl 25 mg 01/20/20 19:17 01/20/20 20:00 Benadryl 50 Mg/Ml IV 01/20/20 19:18 25 mg STAT ONE Administration Diphenhydramine HCl Confirm 01/20/20 19:56 Benadryl 50 Mg/Ml Administered 01/20/20 19:57 Dose 50 mg .ROUTE .STK-MED ONE Droperidol 1.25 mg 01/20/20 19:16 01/20/20 19:59 Inapsine 5 Mg/2 Ml IV 01/20/20 19:17 1.25 mg STAT ONE Administration Droperidol Confirm 01/20/20 19:56 Inapsine 5 Mg/2 Ml Administered 01/20/20 19:57 Dose 5 mg .ROUTE .STK-MED ONE Sodium Chloride 1,000 mls @ 999 mls/hr 01/20/20 19:16 01/20/20 19:59 Sodium Chloride 0.9% 1000 Ml IV 01/20/20 20:16 999 mls/hr .Q1H1M STA Administration Sodium Chloride Confirm 01/20/20 19:56 Sodium Chloride 0.9% 1000 Ml Administered 01/20/20 19:57 Dose 1,000 mls @ ud .ROUTE .[facility] ONE Lab/Rad Data: Laboratory Result Diagrams 01/20/20 19:45 01/20/20 19:45 Laboratory Results 01/20/20 01/20/20 01/20/20 Range/Units 20:18 19:45 19:45 WBC 13.3 H (4.0-10.5) K/mm3 RBC 4.21 (4.1-5.4) M/mm3 Hgb 11.7 L (12.0-16.0) gm/dl Hct 37.3 (35-47) % MCV 88.6 (78-100) fl MCH 27.8 (26-32) pg MCHC 31.4 L (32-36) g/dl RDW 15.2 H (11.5-14.0) % Plt Count 289 (150-450) K/mm3 MPV 9.9 (7.5-11.0) fl Gran % 79.1 H (36.0-66.0) % Eos # (Auto) 0.13 (0-0.5) Absolute Lymphs (auto) 1.72 (1.0-4.6) Absolute Monos (auto) 0.90 (0.0-1.3) Lymphocytes % 12.9 L (24.0-44.0) % Monocytes % 6.8 (0.0-12.0) % Eosinophils % 1.0 (0.00-5.0) % Basophils % 0.2 (0.0-0.4) % Absolute Granulocytes 10.56 H (1.4-6.9) Basophils # 0.02 (0-0.4) Sodium 136 L (137-145) mmol/L Potassium 3.2 L (3.5-5.1) mmol/L Chloride 98 (98-107) mmol/L Carbon Dioxide 28 (22-30) mmol/L Anion Gap 13.6 (5-15) MEQ/L BUN 9 (7-17) mg/dL Creatinine 0.67 (0.52-1.04) mg/dL Estimated GFR > 60.0 ML/MIN Glucose 105 (74-106) mg/dL Calcium 9.2 (8.4-10.2) mg/dL Total Bilirubin 0.70 (0.2-1.3) mg/dL AST 35 (14-36) U/L ALT 16 (0-35) U/L Alkaline Phosphatase 62 (38-126) U/L Serum Total Protein 7.3 (6.3-8.2) g/dL Albumin 4.0 (3.5-5.0) g/dL Urine Color STRAW (YELLOW) Urine Appearance CLEAR (CLEAR) Urine pH 6.0 (5-6) Ur Specific [place] 1.009 (1.005-1.025) Urine Protein NEGATIVE (Negative) Urine Ketones NEGATIVE (NEGATIVE) Urine Blood NEGATIVE (0-5) Librado/ul Urine Nitrite NEGATIVE (NEGATIVE) Urine Bilirubin NEGATIVE (NEGATIVE) Urine Urobilinogen NEGATIVE (0-1) mg/dL Ur Leukocyte Esterase NEGATIVE (NEGATIVE) Urine WBC (Auto) 0-2 (0-5) /HPF Urine RBC (Auto) 0-2 (0-2) /HPF U Epithel Cells (Auto) NONE (FEW) /HPF Urine Bacteria (Auto) NONE SEEN (NEGATIVE) /HPF Urine Mucus (Auto) SLIGHT (NEGATIVE) /HPF Urine Culture Reflexed NO (NO) Urine Glucose NEGATIVE (NEGATIVE) mg/dL - Progress Progress: improved Progress Note: 01/20/20 19:45 Patient is here for headache. Will obtain a head CT, basic labs, fluids, migraine medication, Tylenol.. 01/20/20 20:49 Patient feeling improved with medication here. Head CT shows no obvious head bleed, stroke, other intracranial issue. Patient does have a slightly elevated white blood cell count. Tachycardia resolved with fluids here. Given this we will treat with Augmentin going home. Strict return precautions given 01/20/20 20:52 Counseled pt/family regarding: lab results, diagnosis, need for follow-up - Departure Departure Disposition: Home, Extended Care Facility Clinical Impression: Sinus infection Condition: Stable Critical Care Time: No Referrals: ZOYA DURHAM MD [Primary Care Provider] - Instructions: Headache, Adult (DC) Prescriptions: Amox Tr/Potass Clav. 875 mg [Augmentin 875-125 Tablet] 875 mg PO BID 10 Days #20 tablet
[2020-01-20] MEDS ORDERED: BENADRYL 50 MG/ML ONE (19:56)
[2020-01-20] MEDS ORDERED: Sodium Chloride 0.9% 1000 ML 1,000 ML ONE (19:56)
[2020-01-20] MEDS ORDERED: Inapsine 5 MG/2 ML ONE (19:56)
[2020-01-20] MEDS ORDERED: TYLENOL EXTRA STRENGTH 500 MG ONE (19:56)
[2020-01-20 20:03] LABS: ALKALINE PHOSPHATASE 62 U/L (38-126); ANION GAP 13.6 MEQ/L (5-15); BLOOD UREA NITROGEN 9 mg/dL (7-17); CHLORIDE 98 mmol/L (98-107); Calcium 9.2 mg/dL (8.4-10.2); Carbon Dioxide 28 mmol/L (22-30); Creatinine 1 0.67 mg/dL (0.52-1.04); Glucose 105 mg/dL (74-106); Potassium 3.2 mmol/L (3.5-5.1); SGOT/AST 35 U/L (14-36); SGPT/ALT 16 U/L (0-35); SODIUM 136 mmol/L (137-145); Total Protein 7.3 g/dL (6.3-8.2)
[2020-01-20 20:08] VITALS: BP 161/73; PULSE 118
--- NOTE | 2020-01-20 20:27 | XRAY ---
Exam: CT of the head without IV contrast from 01/20/2020. CTDI: 53.92 mGy Comparison: CT of the head without IV contrast from 06/14/2019. Indication: 69-year-old female for rule out brain bleed, woke up with frontal headache and stuffed up nose, no known injury or history of prior brain surgery. Technique: Non-IV contrast axial images were obtained through the brain. Reconstructed coronal and sagittal images were created and reviewed. Findings: The ventricles appear of unremarkable size. No focal mass effect or midline shift is seen. There is no evidence of acute intracranial bleed or abnormal extra-axial fluid collection. A small amount calcification is seen within the falx in the midline. Only minimal deep white matter changes suggestive of microvascular ischemic changes are seen. This represents no change. No new focal low-attenuation lesion is seen within a major cerebral or cerebellar artery distribution. There is some mild generalized cortical atrophy, not inappropriate for the patient's age. The calvarium of the skull appears intact without evidence of fracture. I again note some deviation of the posterior aspect of the nasal septum toward the left. The visualized paranasal sinuses appear clear. The mastoid air cells are clear except for some minimal mucosal thickening within the inferior aspect of each mastoid. This is unchanged. No mastoid effusions are seen. The middle ear cavities appear unremarkable. The orbits appear unremarkable. Impression: 1. I see no evidence of acute intracranial bleed or other acute intracranial process. 2. Minimal chronic small vessel ischemic white matter disease representing no change. A cortical infarct is not seen. 3. Mild prominence of the cortical sulci, not inappropriate for the patient's age.
[2020-01-20 20:36] LABS: Appearance CLEAR (CLEAR); Bacteria NONE SEEN /HPF (NEGATIVE); Bilirubin NEGATIVE (NEGATIVE); Blood NEGATIVE Ery/ul (0-5); Glucose NEGATIVE (NEGATIVE); Ketones NEGATIVE (NEGATIVE); Leukocyte Esterase NEGATIVE (NEGATIVE); Mucus SLIGHT /HPF (NEGATIVE); Nitrite NEGATIVE (NEGATIVE); Protein,Urine Dip NEGATIVE (Negative); RBC 0-2 /HPF (0-2); Specific Gravity 1.009 (1.005-1.025); Urobilinogen NEGATIVE mg/dL (0-1); WBC 0-2 /HPF (0-5)
== END 2020-01-20 21:15 | disposition home or self-care (01) ==
LOC: ED 18:51
DX: J32.9 Chronic sinusitis, unspecified (principal); I10 Essential (primary) hypertension; J44.9 Chronic obstructive pulmonary disease, unspecified; E11.9 Type 2 diabetes mellitus without complications; K21.9 Gastro-esophageal reflux disease without esophagitis; M79.7 Fibromyalgia; Z79.899 Other long term (current) drug therapy
CPT/HCPCS: 36000; 36415; 70450; 80053; 81001; 85025; 93005; 96360; 96374; 96375; 99284; J1200; A9270-GY

== ENCOUNTER 2020-11-12 09:15 | Day surgery (SDC) | payer MEDICARE ==
--- NOTE | 2020-11-12 08:08 | HP ---
DATE OF SURGERY: 11/12/2020 HISTORY OF PRESENT ILLNESS: The patient is a 70 year-old who has right groin area with ventral hernia increasing symptoms. She desires repair. PAST MEDICAL HISTORY: Chronic lung disease, chronic obstructive pulmonary disease, diabetes, anxiety, depression. She has prior history of collagenous colitis in the past. PAST SURGICAL HISTORY: Procedure on back in 1976. MEDICATIONS: Aspirin, calcium, duloxetine, omeprazole, Aripiprazole, Eliquis, diarrhea tablets, Ketorolac eye drops, lisinopril, naloxone, metoprolol, Mupirocin ointment, Nystatin, Symbicort, Simvastatin, cetirizine, Allopurinol, Albuterol, Alendronate, vitamin D2, Wixela. ALLERGIES: SULFA. MORPHINE. FAMILY HISTORY: CVA, hypertension, diabetes, lung cancer. SOCIAL HISTORY: No smoking. REVIEW OF SYSTEMS: Fourteen systems reviewed pertinent for medical problems as noted above. No chest pain or palpitations. Other systems negative or noncontributory as above and per preadmission questionnaire and as noted above. PHYSICAL EXAMINATION: GENERAL: No acute distress. HEENT: Sclerae nonicteric. NECK: No JVD. CHEST: Equal excursion, decreased breath sounds consistent with her chronic obstructive pulmonary disease but equal bilaterally. CVS: Regular rate and rhythm. ABDOMEN: Soft. Incarcerated ventral hernia inguinal and femoral area abdomen prior incision site. Also has incarcerated right inguinal area hernia. EXTREMITIES: No significant edema. No cyanosis. NEURO: Alert, oriented, moving extremities symmetrically. No gross motor deficits noted. PSYCH: Appropriate mood and affect. IMPRESSION: Incarcerated ventral hernia and also incarcerated inguinal and femoral area hernia. I feel she will benefit from repair possible mesh. Risks and benefits explained in detail including but not limited to bleeding and infection, risk of hematoma or seroma formation, risk of wound infection or ingrown hair, risk of mesh infection possibly requiring removal, risk of aches, pains, burning, numbness lower abdomen, groin, thigh or labial area, possible chronic or prison up to 10 to 12%, possible high risk of having ache or twinge, risk of adhesion or scar formation, risk of obstruction, risk of ileus, remote risk of mesh fracture or failure possibly creating issues with viscera or other structures possibly requiring other procedures, ongoing morbidity but not limited to, consent obtained. Will proceed with repair of incarcerated ventral hernia with mesh, repair of incarcerated right femoral or inguinal hernia with possible mesh as an outpatient.
[~2020-11-12 09:15] MED LIST: Lactated Ringers 1,000 ML IV ONE; Sensorcaine 0.25% 10 ML ONE
[2020-11-12] MEDS ORDERED: Lactated Ringers 1,000 ML IV SCH (10:30)
[2020-11-12] MEDS ORDERED: CEFAZOLIN 2 GM-D5W BAG** 2 GM/50 ML ML IV SCH (10:30)
[2020-11-12] MEDS ORDERED: DIPRIVAN 200 MG/20 ML IV ONE (12:00)
[2020-11-12] MEDS ORDERED: Xylocaine-Mpf 2% 5 Ml Vial ONE (12:00)
[2020-11-12] MEDS ORDERED: Zofran 4 MG/2 ML VIAL ONE (12:00)
[2020-11-12] MEDS ORDERED: SUBLIMAZE 100 MCG/2 ML ONE ×2 (12:00→13:38)
[2020-11-12] MEDS ORDERED: Decadron 4 MG INJ ONE (12:00)
[2020-11-12] MEDS ORDERED: TORAdol 30 mg Injection ONE (12:00)
[2020-11-12] MEDS ORDERED: BRIDION 200MG/2ML IV ONE (12:00)
[2020-11-12] MEDS ORDERED: Zemuron 100 MG/10 ML ONE (12:00)
[2020-11-12] MEDS ORDERED: TRANDATE 20 MG/4 ML SYRINGE IV ONE (12:26)
[2020-11-12] MEDS ORDERED: MARCAINE 0.5%-EPI 1:200,000 VL IJ ONE (13:03)
[2020-11-12] MEDS ORDERED: Hydromorphone 1 mg/ml Injection ONE (13:39)
[2020-11-12] MEDS ORDERED: BACIGUENT 30 GM ONE (14:00)
[2020-11-12 15:12] VITALS: BP 164/80; PULSE 77; O2SAT 95
--- NOTE | 2020-11-12 15:32 | OP ---
SURGERY DATE/TIME: 11/12/2020 1203 PREOPERATIVE DIAGNOSIS: Incarcerated ventral hernia. POSTOPERATIVE DIAGNOSIS: Incarcerated ventral hernia. PROCEDURES: 1) Open repair of incarcerated ventral hernia with mesh. 2) Partial omentectomy (very large hernia required partial omentectomy to reduce hernia). SURGEON: Dr. Harrison Guerrero. ANESTHESIA: General. ESTIMATED BLOOD LOSS: Minimal. INDICATIONS: As noted above. Risks and benefits explained in detail and not limited to and consent obtained. The site confirmed with the patient in the preoperative holding area. She additionally had a femoral possible inguinal area hernia but since her office visit she developed a superficial rash in that area. She was given the option of holding off on both hernias and proceeding with the mid abdominal ventral hernia away from the rash site and delaying the repair of the femoral or inguinal hernia. She preferred to do this. Therefore it was planned just to repair ventral hernia in this setting and repair her femoral or inguinal fat-filled hernia at a later date once she cleared her fungal reaction. The site confirmed and marked with the patient in the preoperative holding area. DESCRIPTION OF PROCEDURE AND FINDINGS: She is taken to the operating room. General anesthesia induced. Abdomen prepped and draped in usual sterile fashion. After official time out and no disagreement with planned procedure, a transverse incision made and dissection carried down circumferentially around this very large, larger than a softball of incarcerated omental ventral hernia dissected down to the defect in the fascia. Hernia sac was opened. There was noted to be a large amount of omentum in this. To allow it to be reduced it required partial omentectomy. A small grapefruit sized portion of omentum was carefully excised with aide of LigaSure device allowing the residual omentum to be reduced back down in the abdomen. Fascia is cleared circumferentially around it. It was felt she would benefit from mesh repair given the size of the defect. Size [address] mesh most appropriate mesh. It was carefully secured 1 cm apart around the periphery in tension-free bites. Straps removed. The fascia was closed with interrupted 0 Vicryl. 0.25% Marcaine local injected along the fascial defect. The subcu and tissue was packed back down to the level of the fascia with 3-0 Vicryl. Superficial subcu closed with 3-0 Vicryl. Skin closed with 4-0 Vicryl running subcuticular fashion. 0.25% Marcaine local injected along the skin in field pattern. Anesthesia applying tap blocks for additional pain control. Steri-Strips and sterile dressing, pressure dressing, compression dressing, abdominal binder were given to the patient. She was transferred to the recovery room in stable condition. Findings were discussed with the family out in the waiting area. Try some Nystatin powder or other [id number] powder to clear up this fungal rash. Once she is cleared up here in the next few weeks, we will reschedule her for femoral and/or inguinal area hernia repair at a later date. If she fails to improve, she should contact her family doctor to see if they prefer a different treatment of the superficial skin inflammation reaction.
== END 2020-11-12 15:10 | disposition home or self-care (01) ==
LOC: SDC 09:15
PROVIDERS: ATTEND Surgery
DX: K43.6 Other and unspecified ventral hernia with obstruction, without gangrene (principal); J44.9 Chronic obstructive pulmonary disease, unspecified; E11.9 Type 2 diabetes mellitus without complications; Z79.899 Other long term (current) drug therapy; Z79.01 Long term (current) use of anticoagulants
CPT/HCPCS: 49255; 49561; 49568; 64488; 76937; 76942; C1781; 99100; J0690; J1100; J1170; J1885; J2405; J2704; J3010; L0625; A9270-GY

== ENCOUNTER 2021-01-16 06:27 | Day surgery (SDC) | payer MEDICARE ==
[2021-01-16] MEDS ORDERED: Lactated Ringers 1,000 ML IV SCH (06:30)
[2021-01-16] MEDS ORDERED: DIPRIVAN 200 MG/20 ML IV ONE ×2 (08:02→08:11)
[2021-01-16 09:01] VITALS: BP 176/99; PULSE 93; O2SAT 95
--- NOTE | 2021-01-16 09:10 | OP ---
SURGERY DATE/TIME: 01/16/2021 0800 PREOPERATIVE DIAGNOSIS: Screening colonoscopy. POSTOPERATIVE DIAGNOSIS: Normal colon. PROCEDURE: Colonoscopy. SURGEON: Lakhwinder López M.D. ANESTHESIA: MAC by Peewee Mcdonald CRNA. ESTIMATED BLOOD LOSS: None. SPECIMENS: None. DESCRIPTION OF PROCEDURE: After informed written consent was obtained, the patient was taken to the endoscopy suite. She underwent monitored anesthesia and anesthesia was titrated to desired level of consciousness. A digital rectal exam showed normal sphincter tone and no internal lesions. The scope was inserted into the rectum and sequentially the entire colonic mucosa was traversed. The level of cecum was reached and verified with direct visualization of ileocecal valve. Upon withdrawal careful mucosal inspection revealed no gross abnormalities. There were some areas of narrowing in the colon but no obvious stricture or mucosal lesions were appreciable. Prior to withdrawal retroflexion was performed and showed no internal lesions. The scope was removed and the patient was transferred to the recovery room in good condition.
== END 2021-01-16 09:14 | disposition home or self-care (01) ==
LOC: SDC 06:27
PROVIDERS: ATTEND Family Medicine
DX: Z12.11 Encounter for screening for malignant neoplasm of colon (principal); E11.9 Type 2 diabetes mellitus without complications; I10 Essential (primary) hypertension; J98.4 Other disorders of lung; M19.90 Unspecified osteoarthritis, unspecified site; Z79.899 Other long term (current) drug therapy
CPT/HCPCS: 82947; G0121; 99100; J2704

== ENCOUNTER 2021-03-06 08:24 | Day surgery (SDC) | payer MEDICARE, SELFPAY ==
[2021-03-06] MEDS ORDERED: BUPIVACAINE 0.5% VIAL IJ ONE (08:25)
[2021-03-06] MEDS ORDERED: Depo-Medrol 40 MG/ML IM ONE (08:25)
[2021-03-06] MEDS ORDERED: DIPRIVAN 200 MG/20 ML IV ONE (09:29)
[2021-03-06] MEDS ORDERED: Lactated Ringers 1,000 ML IV ONE (11:41)
--- NOTE | 2021-03-06 11:44 | XRAY ---
Indication: Right hip intra-articular and greater trochanter bursa injections. Intraoperative fluoroscopy provided for 22 seconds. 2 digital spot images submitted for interpretation demonstrates needle tip projecting lateral to the right femur neck and second needle tip lateral to the greater trochanter. Small amount of contrast injected for both needle tip placement. Correlate with intraoperative findings/report.
--- NOTE | 2021-03-06 11:50 | XRAY ---
22 seconds fluoroscopy time in surgery for injections of the right intra-articular space and greater trochanter of the right hip.
== END 2021-03-06 10:05 | disposition home or self-care (01) ==
LOC: SDC-PAIN 08:24
PROVIDERS: ATTEND Psychiatry & Neurology Pain Medicine
DX: M16.11 Unilateral primary osteoarthritis, right hip (principal); M70.61 Trochanteric bursitis, right hip; E11.9 Type 2 diabetes mellitus without complications; Z79.899 Other long term (current) drug therapy
CPT/HCPCS: 20610; 73502; 77002; 82947; J1030; J2704; Q9966

== ENCOUNTER 2022-02-02 19:01 | Emergency (ER) | payer MEDICARE ==
[2022-02-02] MEDS ORDERED: Sodium Chloride 0.9% 500 ML 500 ML IV ONE ×2 (19:50→19:55)
[2022-02-02 20:11] LABS: Absolute Neutrophil Ct (ANC) 6.32 x10^3/uL (1.4-6.9); Basophil (Absolute #) 0.05 x10^3/uL (0-0.4); Eosinophil % 0.5 % (0.00-5.0); Eosinophil (Absolute #) 0.04 x10^3/uL (0-0.5); Hematocrit 43.9 % (35-47); Hemoglobin 13.7 g/dL (12.0-16.0); Lymphocyte (Absolute #) 1.38 x10^3/uL (1.0-4.6); Lymphocytes % 16.7 % (24.0-44.0); Mean Cell Volume 103.8 fL (78-100); Mean Corpuscular Hemoglobin 32.4 pg (26-32); Mean Corpuscular Hgb Concent. 31.2 g/dL (32-36); Mean Platelet Volume 9.9 fL (7.5-11.0); Monocyte (Absolute #) 0.44 x10^3/uL (0.0-1.3); Monocytes % 5.3 % (0.0-12.0); Neutrophil % 76.7 % (36.0-66.0); Platelet Count 281 x10^3/uL (150-450); Red Blood Count 4.23 x10^6/uL (4.1-5.4); White Blood Count 8.3 x10^3/uL (4.0-10.5)
--- NOTE | 2022-02-02 20:24 | ERPHSYRPT ---
- History of Present Illness Time Seen by Provider: 02/02/22 19:08 Source: patient, family, EMS Exam Limitations: no limitations Patient Subjective Stated Complaint: pt states "I have been jerking and shaking all over." Triage Nursing Assessment: Pt brought in by ambulance from [facility], pt c/o shaking all over, pt takes percocet for arthritis, prescription was filled on 01/17/2022 with 120 pills in the bottle, the entire medication bottle is empty, pt is alert and oriented x3, pt denies chest pain, sob, headache, abd pain, or any other symptoms at this time, pt is cooperative Physician History: 71 years old female with history of psoriatic arthritis, rheumatoid arthritis on pain medications, hyperlipidemia, baseline tremors presented in the ER with worsening shaking since afternoon. Patient takes Percocet 4 times a day and was filled 120 pills on 01/17/2022 and she took her last pill this morning. She was still hardening and some family member brought her THC Gummies which she took to around 1:30 PM and started to have worsening of shaking and reports she was not understanding what she was doing. She was confused and foggy, dragging for almost couple of hours and now has increased shakiness then normal. She denies any numbness tingling or focal weakness. No chest pain palpitations no shortne ss of breath or cough. Patient unable to give a valid explanation for overuse of Percocet. She sees "I could have been using it but not sure". was taking hydrocodone and has been recently not receiving any prescriptions from pain management because of failed urine drug screen but he denies taking her pills. Timing/Duration: today, gradual onset, worse Severity: moderate Modifying Factors: Improves With: other Associated Symptoms: denies symptoms Allergies/Adverse Reactions: Sulfa (Sulfonamide Antibiotics) Allergy (Verified 02/02/22 19:05) Hives morphine Adverse Reaction (Verified 02/02/22 19:05) confusion Home Medications: Metoprolol Succinate 50 mg [Toprol Xl 50 MG] 50 mg PO DAILY 05/19/13 [History] Simvastatin 40 mg [Zocor 40 mg] 40 mg PO HS 10/30/13 [History] Allopurinol 100 mg [Zyloprim 100 mg] 100 mg PO DAILY 06/15/19 [History] Aspirin 81 mg PO DAILY 01/20/20 [History] Budesonide/Formoterol Fumarate [Symbicort 160-4.5 Mcg Inhaler] 2 puff IH BID 10/30/20 [History] Dexlansoprazole [Dexilant] 1 tab PO DAILY 01/15/21 [History] Duloxetine HCl [Cymbalta] 60 mg PO BID 01/15/21 [History] Gabapentin [Neurontin ] 1 cap PO TID 01/15/21 [History] Lisinopril 10 mg [Zestril 10 MG] 10 mg PO DAILY 01/15/21 [History] Omeprazole 40 mg PO DAILY 01/15/21 [History] Potassium Chloride 20 meq PO DAILY 02/02/22 [History] Trazodone HCl 100 mg PO DAILY 02/02/22 [History] Hx Tetanus, Diphtheria Vaccination/Date Given: No Hx Influenza Vaccination/Date Given: Yes Hx Pneumococcal Vaccination/Date Given: Yes Immunizations Up to Date: Yes Travel Risk - International Travel Have you traveled outside of the country in past 3 weeks: No - Coronavirus Screening Are you exhibiting any of the following symptoms?: No - Vaccine Status Have you recieved a Covid-19 vaccination: Yes Linen Checker: Moderna - Vaccination Dates Date of 2cond Vaccination (if applicable): unknown - Review of Systems Constitutional: Fatigue Eyes: No Symptoms Ears, Nose, & Throat: No Symptoms Respiratory: No Symptoms Cardiac: No Symptoms Abdominal/Gastrointestinal: No Symptoms Genitourinary Symptoms: No Symptoms Musculoskeletal: Arthralgias, Back Pain, Joint Pain Skin: No Symptoms Neurological: Tremors Psychological: No Symptoms Endocrine: No Symptoms Hematologic/Lymphatic: No Symptoms Immunological/Allergic: No Symptoms - Past Medical History Pertinent Past Medical History: Yes Neurological History: No Pertinent History ENT History: Cataracts Cardiac History: Hypertension Respiratory History: COPD Endocrine Medical History: Diabetes Type II Musculoskeletal History: Arthritis, Fibromyalgia, Rheumatoid Arthritis, Other GI Medical History: GERD, Hernia, Irritable Bowel History: No Pertinent History Psycho-Social History: Anxiety, Depression Female Reproductive Disorders: No Pertinent History Other Medical History: PSORIATIC OA - Past Surgical History Past Surgical History: Yes Neuro Surgical History: No Pertinent History Cardiac: No Pertinent History Respiratory: No Pertinent History Gastrointestinal: Hernia Repair Genitourinary: Other Musculoskeletal: Joint Replacement, Orthopedic Surgery Female Surgical History: Hysterectomy Other Surgical History: RIGHT AND LEFT KNEE, TUMOR ON LEFT SIDE REMOVED, BLADDER TACT. cataract removed from left eye, orif of left wrist, back injections - Social History Smoking Status: Former smoker How long have you smoked: 3 years Exposure to second hand smoke: No Alcohol Use: None Drug Use: narcotics Patient Lives Alone: No Significant Family History: diabetes, hypertension - Nursing Vital Signs Nursing Vital Signs: Initial Vital Signs Temperature 98.1 F 02/02/22 19:02 Pulse Rate 91 H 02/02/22 19:02 Respiratory Rate 25 H 02/02/22 19:02 Blood Pressure 155/79 02/02/22 19:02 O2 Sat by Pulse Oximetry 95 02/02/22 19:02 Pain Scale Pain Intensity 0 - Physical Exam General Appearance: no apparent distress, alert, anxiety Eye Exam: PERRL/EOMI, eyes nml inspection Ears, Nose, Throat Exam: normal ENT inspection, TMs normal, pharynx normal, moist mucous membranes Neck Exam: normal inspection, non-tender, supple, full range of motion Respiratory Exam: normal breath sounds, lungs clear Cardiovascular Exam: regular rate/rhythm, normal heart sounds Gastrointestinal/Abdomen Exam: soft, normal bowel sounds, No tenderness Back Exam: normal inspection, decreased range of motion, No normal range of motion Extremity Exam: normal inspection, normal range of motion Neurologic Exam: alert, oriented x 3, cooperative, product steward II-XII nml as tested, sensation nml, No normal mood/affect, No motor deficits Skin Exam: normal color SpO2 Interpretation: normal SpO2: 95 O2 Delivery: Room Air - Course EKG Interpreted by Me: RATE ([id number]), Sinus Rhythm, NORMAL AXIS, NORMAL INTERVALS, Non-specific ST Changes Ordered Tests: Active Orders 24 hr Category Date Time Status EKG-ER Only STAT Care 02/02/22 19:47 Completed CHEST 1 VIEW (PORTABLE) Stat Exams 02/02/22 19:49 Taken CBC W DIFF Stat Lab 02/02/22 20:08 Completed CMP Stat Lab 02/02/22 20:08 Completed ETHYL ALCOHOL Stat Lab 02/02/22 20:08 Completed MAGNESIUM Stat Lab 02/02/22 20:08 Completed TROPONIN Q3H Lab 02/02/22 20:08 Completed TSH, 3RD Generation Stat Lab 02/02/22 20:08 Completed UA W/RFX CULTURE Stat Lab 02/02/22 19:56 Completed Urine Triage Profile Stat Lab 02/02/22 19:56 Completed Medication Summary Discontinued Medications Generic Name Dose Route Start Last Admin Trade Name Carin PRN Reason Stop Dose Admin Sodium Chloride 500 mls @ 500 mls/hr 02/02/22 19:50 02/02/22 21:06 Sodium Chloride 0.9% 500 Ml IV 02/02/22 20:49 Infused .Q1H ONE Infusion Sodium Chloride Confirm 02/02/22 19:55 Sodium Chloride 0.9% 500 Ml Administered 02/02/22 19:56 Dose 500 mls @ ud IV .STK-MED ONE Lab/Rad Data: Laboratory Result Diagrams 02/02/22 20:08 02/02/22 20:08 Laboratory Results 02/02/22 02/02/22 02/02/22 Range/Units 20:08 20:08 20:08 WBC 8.3 (4.0-10.5) x10^3/uL RBC 4.23 (4.1-5.4) x10^6/uL Hgb 13.7 (12.0-16.0) g/dL Hct 43.9 (35-47) % MCV 103.8 H (78-100) fL MCH 32.4 H (26-32) pg MCHC 31.2 L (32-36) g/dL RDW 12.0 (11.5-14.0) % Plt Count 281 (150-450) x10^3/uL MPV 9.9 (7.5-11.0) fL Gran % 76.7 H (36.0-66.0) % Immature Gran % (Auto) 0.2 (0.00-0.4) % Nucleat RBC Rel Count 0.0 (0.00-0.1) % Eos # (Auto) 0.04 (0-0.5) x10^3/uL Immature Gran # (Auto) 0.02 (0.00-0.03) x10^3u/L Absolute Lymphs (auto) 1.38 (1.0-4.6) x10^3/uL Absolute Monos (auto) 0.44 (0.0-1.3) x10^3/uL Absolute Nucleated RBC 0.00 (0.00-0.01) x10^3u/L Lymphocytes % 16.7 L (24.0-44.0) % Monocytes % 5.3 (0.0-12.0) % Eosinophils % 0.5 (0.00-5.0) % Basophils % 0.6 (0.0-0.4) % Absolute Granulocytes 6.32 (1.4-6.9) x10^3/uL Basophils # 0.05 (0-0.4) x10^3/uL Sodium 139 (137-145) mmol/L Potassium 5.0 (3.5-5.1) mmol/L Chloride 106 (98-107) mmol/L Carbon Dioxide 24 (22-30) mmol/L Anion Gap 13.6 (5-15) MEQ/L BUN 13 (7-17) mg/dL Creatinine 0.87 (0.52-1.04) mg/dL Estimated GFR > 60.0 ML/MIN Glucose 108 H (74-106) mg/dL Calcium 9.8 (8.4-10.2) mg/dL Magnesium 1.8 (1.6-2.3) mg/dL Total Bilirubin 0.40 (0.2-1.3) mg/dL AST 21 (14-36) U/L ALT 16 (0-35) U/L Alkaline Phosphatase 60 (38-126) U/L Troponin I < 0.012 (0.000-0.034) ng/mL Serum Total Protein 6.8 (6.3-8.2) g/dL Albumin 4.0 (3.5-5.0) g/dL TSH 3rd Generation 0.167 L (0.47-4.68) mIU/L Urinalys Dipstick Clnc Urine Color (YELLOW) Urine Appearance (CLEAR) Urine pH (5-6) Ur Specific Evangeline (1.005-1.025) POC Urine Protein Conf (Negative) Urine Ketones (NEGATIVE) Urine Nitrite (NEGATIVE) Urine Bilirubin (NEGATIVE) Urine Urobilinogen (0-1) mg/dL Urine Leukocytes (NEGATIVE) Urine WBC (Auto) (0-5) /HPF Urine RBC (Auto) (0-2) /HPF U Epithel Cells (Auto) (FEW) /HPF Urine Bacteria (Auto) (NEGATIVE) /HPF Urine RBC (0-5) Librado/ul Ur Culture Indicated? Urine Glucose (NEGATIVE) mg/dL Urine Opiates Level (NEGATIVE) Ur Methadone (NEGATIVE) Urine Barbiturates (NEGATIVE) Ur Phencyclidine (PCP) (NEGATIVE) Urine Amphetamine (NEGATIVE) U Benzodiazepine Level (NEGATIVE) Urine Cocaine (NEGATIVE) Urine Marijuana (THC) (NEGATIVE) Ethyl Alcohol < 10 (0-10) mg/dL 02/02/22 02/02/22 Range/Units 19:56 19:56 WBC (4.0-10.5) x10^3/uL RBC (4.1-5.4) x10^6/uL Hgb (12.0-16.0) g/dL Hct (35-47) % MCV (78-100) fL MCH (26-32) pg MCHC (32-36) g/dL RDW (11.5-14.0) % Plt Count (150-450) x10^3/uL MPV (7.5-11.0) fL Gran % (36.0-66.0) % Immature Gran % (Auto) (0.00-0.4) % Nucleat RBC Rel Count (0.00-0.1) % Eos # (Auto) (0-0.5) x10^3/uL Immature Gran # (Auto) (0.00-0.03) x10^3u/L Absolute Lymphs (auto) (1.0-4.6) x10^3/uL Absolute Monos (auto) (0.0-1.3) x10^3/uL Absolute Nucleated RBC (0.00-0.01) x10^3u/L Lymphocytes % (24.0-44.0) % Monocytes % (0.0-12.0) % Eosinophils % (0.00-5.0) % Basophils % (0.0-0.4) % Absolute Granulocytes (1.4-6.9) x10^3/uL Basophils # (0-0.4) x10^3/uL Sodium (137-145) mmol/L Potassium (3.5-5.1) mmol/L Chloride (98-107) mmol/L Carbon Dioxide (22-30) mmol/L Anion Gap (5-15) MEQ/L BUN (7-17) mg/dL Creatinine (0.52-1.04) mg/dL Estimated GFR ML/MIN Glucose (74-106) mg/dL Calcium (8.4-10.2) mg/dL Magnesium (1.6-2.3) mg/dL Total Bilirubin (0.2-1.3) mg/dL AST (14-36) U/L ALT (0-35) U/L Alkaline Phosphatase (38-126) U/L Troponin I (0.000-0.034) ng/mL Serum Total Protein (6.3-8.2) g/dL Albumin (3.5-5.0) g/dL TSH 3rd Generation (0.47-4.68) mIU/L Urinalys Dipstick Clnc MAIN LAB Urine Color LT.YELLOW (YELLOW) Urine Appearance CLEAR (CLEAR) Urine pH 6.0 (5-6) Ur Specific Evangeline 1.015 (1.005-1.025) POC Urine Protein Conf NEGATIVE (Negative) Urine Ketones NEGATIVE (NEGATIVE) Urine Nitrite NEGATIVE (NEGATIVE) Urine Bilirubin NEGATIVE (NEGATIVE) Urine Urobilinogen 0.2 (0-1) mg/dL Urine Leukocytes NEGATIVE (NEGATIVE) Urine WBC (Auto) NONE (0-5) /HPF Urine RBC (Auto) NONE (0-2) /HPF U Epithel Cells (Auto) NONE (FEW) /HPF Urine Bacteria (Auto) NONE SEEN (NEGATIVE) /HPF Urine RBC NEGATIVE (0-5) Librado/ul Ur Culture Indicated? NO Urine Glucose NEGATIVE (NEGATIVE) mg/dL Urine Opiates Level NEGATIVE (NEGATIVE) Ur Methadone NEGATIVE (NEGATIVE) Urine Barbiturates NEGATIVE (NEGATIVE) Ur Phencyclidine (PCP) NEGATIVE (NEGATIVE) Urine Amphetamine NEGATIVE (NEGATIVE) U Benzodiazepine Level NEGATIVE (NEGATIVE) Urine Cocaine NEGATIVE (NEGATIVE) Urine Marijuana (THC) POSITIVE (NEGATIVE) Ethyl Alcohol (0-10) mg/dL - Progress Progress: improved, re-examined Progress Note: 02/02/22 21:39 71 years old is evaluated for generalized shaking. She has a nonfocal neuro exam otherwise. EKG showed sinus rhythm without any ST elevation. Work-up showed normal white count, grossly unremarkable chemistries. Chest x-ray showed some old changes and no new finding and patient is maintaining oxygen saturat ion around 97% on room air without any tachypnea or tachycardia/distress. She is given fluid bolus and feeling better on reevaluation. Upon detailed questioning patient is not sure whether she is taking extra medications or not. Her per daughter and another friend is very demanding and usually they have arguments and when this happens patient's gets very anxious and she does not cope very well. This happened prior to arrival as well. Part of her symptoms are also secondary to THC gummy use as well. She is counseled not to use them again and she understands that. Also she has low TSH and need for further evaluation by PCP. Of note patient has taken her last pill this morning but her urine drug screen is negative for opiates. This could be false negative as well but may be patient is not taking medication and someone else might be. Per daughter they argued a lot and I have discussed with patient as well and she would go with her friends house where she feels safe. I have talked to her friend as well and she will have her follow-up outpatient with primary care and pain management. 02/02/22 22:23 Patient later decided to go her home as her son would be there and she feels safe as he is going to stay there. She is being discharged with her friend in a stable condition. Counseled pt/family regarding: lab results, diagnosis, need for follow-up, rad results - Departure Departure Disposition: Home Clinical Impression: Anxiety, Hyperthyroidism, Tremor Condition: Stable Critical Care Time: No Referrals: ZOYA DURHAM MD [Primary Care Provider] - Follow up/PCP as directed (1-2 days for reevaluation) Instructions: Essential Tremor, Prescription Drug Abuse (DC) Additional Instructions: Take medications as recommended by physician/provider. Do not use THC Gummies or any other nonprescription products. Follow-up with primary care and pain management for reevaluation. Stay with your friend until you feel safe going back home. Return to ER for worsening of anxiety, intractable pain, numbness tingling focal weakness, having suicidal or homicidal ideations etc.
[2022-02-02 20:49] LABS: Amphetamine,Urine NEGATIVE (NEGATIVE); Barbiturate,Urine NEGATIVE (NEGATIVE); Benzodiazepine,Urine NEGATIVE (NEGATIVE); Methadone,Urine NEGATIVE (NEGATIVE); Opiate,Urine NEGATIVE (NEGATIVE); PCP,Urine NEGATIVE (NEGATIVE); THC,Urine POSITIVE (NEGATIVE)
[2022-02-02 20:51] LABS: Appearance CLEAR (CLEAR); Bilirubin NEGATIVE (NEGATIVE); Glucose NEGATIVE (NEGATIVE); Ketones NEGATIVE (NEGATIVE); Nitrite NEGATIVE (NEGATIVE); Protein,Urine Dip NEGATIVE (Negative); RBC NEGATIVE Ery/ul (0-5); Specific Gravity 1.015 (1.005-1.025); Urobilinogen 0.2 mg/dL (0-1)
[2022-02-02 20:52] LABS: Dipstick done @ ? MAIN LAB
[2022-02-02 20:55] LABS: ALKALINE PHOSPHATASE 60 U/L (38-126); ANION GAP 13.6 MEQ/L (5-15); BLOOD UREA NITROGEN 13 mg/dL (7-17); CHLORIDE 106 mmol/L (98-107); Calcium 9.8 mg/dL (8.4-10.2); Carbon Dioxide 24 mmol/L (22-30); Creatinine 1 0.87 mg/dL (0.52-1.04); EST GLOMERULAR FILTRATION RATE > 60.0 ML/MIN; ETHYL ALCOHOL < 10 mg/dL (0-10); Glucose 108 mg/dL (74-106); MAGNESIUM 1.8 mg/dL (1.6-2.3); SGOT/AST 21 U/L (14-36); SGPT/ALT 16 U/L (0-35); SODIUM 139 mmol/L (137-145); TSH, 3RD Generation 0.167 mIU/L (0.47-4.68); Total Protein 6.8 g/dL (6.3-8.2)
[2022-02-02 20:56] LABS: Cocaine,Urine NEGATIVE (NEGATIVE)
[2022-02-02 20:59] LABS: Bacteria NONE SEEN /HPF (NEGATIVE); Urine Cultured Indicated? NO
[2022-02-02 21:06] VITALS: BP 130/66; PULSE 80
[2022-02-02 21:44] VITALS: O2SAT 95
--- NOTE | 2022-02-03 08:38 | XRAY ---
Indication: Cough and shaking. Comparison: June 14, 2019. Portable chest demonstrates new left base curvilinear opacity favoring subsegmental atelectasis/scarring. Remaining heart and lungs unremarkable again with incidental tiny calcified granulomas. Bony thorax intact again with osteopenia, degenerative changes, and scoliosis. No acute findings.
== END 2022-02-02 22:11 | disposition home or self-care (01) ==
LOC: ED 19:01
DX: F41.9 Anxiety disorder, unspecified (principal); E05.90 Thyrotoxicosis, unspecified without thyrotoxic crisis or storm; R25.1 Tremor, unspecified; I10 Essential (primary) hypertension; J44.9 Chronic obstructive pulmonary disease, unspecified; E11.9 Type 2 diabetes mellitus without complications; Z79.891 Long term (current) use of opiate analgesic; Z79.899 Other long term (current) drug therapy
CPT/HCPCS: 36415; 71045; 80053; 80307; 81015; 83735; 84443; 84484; 85025; 93005; 99284; G0480

== ENCOUNTER 2023-04-01 15:21 | Day surgery (SDC) | payer MEDICARE ==
[2023-04-01] MEDS ORDERED: BUPIVACAINE 0.5% VIAL IJ ONE (15:22)
[2023-04-01] MEDS ORDERED: Depo-Medrol 40 MG/ML IM ONE (15:22)
[2023-04-01] MEDS ORDERED: LIDOCAINE HCL 1% 50 MG/5 ML VL PF IJ ONE (15:22)
--- NOTE | 2023-04-01 17:27 | XRAY ---
Indication: Left shoulder and subacromial bursa injection. Intraoperative fluoroscopy provided for 30 seconds. 2 digital spot images submitted for interpretation demonstrates needle tip projecting over the left glenohumeral joint superiorly. Second needle tip subacromial. Small amount of contrast injected for both needle tip placement. Correlate with intraoperative findings/report.
--- NOTE | 2023-04-02 08:48 | XRAY ---
30 seconds of fluoroscopy was used in surgery for a left intra-articular shoulder and subacromial bursa injection.
== END 2023-04-01 17:10 | disposition home or self-care (01) ==
LOC: SDC-PAIN 15:21
PROVIDERS: ATTEND Psychiatry & Neurology Pain Medicine
DX: M19.012 Primary osteoarthritis, left shoulder (principal); M75.52 Bursitis of left shoulder; E11.9 Type 2 diabetes mellitus without complications; Z79.899 Other long term (current) drug therapy
CPT/HCPCS: 20610; 73030; 77002; 82947; J1030; J2001; Q9966

== ENCOUNTER 2023-07-03 11:33 | Emergency (ER) | payer MEDICARE ==
[2023-07-03 12:11] VITALS: TEMP 99.3
[2023-07-03 12:43] LABS: Absolute Neutrophil Ct (ANC) 8.31 x10^3/uL (1.4-6.9); BASOPHIL % 0.4 % (0.0-0.4); Basophil (Absolute #) 0.04 x10^3/uL (0-0.4); Eosinophil % 4.4 % (0.00-5.0); Eosinophil (Absolute #) 0.47 x10^3/uL (0-0.5); Hematocrit 41.1 % (35-47); Hemoglobin 13.1 g/dL (12.0-16.0); IMMATURE GRAN # 0.04 x10^3u/L (0.00-0.03); IMMATURE GRAN % 0.4 % (0.00-0.4); Lymphocyte (Absolute #) 1.07 x10^3/uL (1.0-4.6); Mean Cell Volume 103.3 fL (78-100); Mean Corpuscular Hemoglobin 32.9 pg (26-32); Mean Corpuscular Hgb Concent. 31.9 g/dL (32-36); Mean Platelet Volume 9.1 fL (7.5-11.0); Monocyte (Absolute #) 0.81 x10^3/uL (0.0-1.3); Monocytes % 7.5 % (0.0-12.0); Neutrophil % 77.3 % (36.0-66.0); Platelet Count 275 x10^3/uL (150-450); Red Blood Count 3.98 x10^6/uL (4.1-5.4); White Blood Count 10.7 x10^3/uL (4.0-10.5)
[2023-07-03 12:57] LABS: Appearance Clear (Clear); Bacteria None Seen /HPF (None Seen); Bilirubin Negative (Negative); Blood Negative (Negative); Epithelial Cells None Seen /HPF (None Seen); Glucose, Urine Negative (Negative); Hyaline Casts NONE SEEN /LPF (0-2); Ketones Negative (Negative); Leukocyte Esterase Negative (Negative); Nitrite Negative (Negative); Ph 7.5 (4.6-8.0); Protein,Urine Dip Negative (Negative); Specific Gravity 1.015 (1.005-1.030); Urobilinogen 0.2 mg/dL (0.2); WBC 0-2 /HPF (0-5)
[2023-07-03 13:01] LABS: ALBUMIN 3.3 g/dL (3.5-5.0); ANION GAP 8.8 MEQ/L (5-15); BILIRUBIN,TOTAL 0.4 mg/dL (0.2-1.3); Calcium 8.9 mg/dL (8.4-10.2); Creatinine 1 0.65 mg/dL (0.52-1.04); EST GLOMERULAR FILTRATION RATE 91.8 ML/MIN; Potassium 3.8 mmol/L (3.5-5.1); Total Protein 6.4 g/dL (6.3-8.2)
[2023-07-03 13:01] LABS: ADD URINE CULTURE? NO (NO)
[2023-07-03 13:14] VITALS: O2SAT 94
--- NOTE | 2023-07-03 13:23 | XRAY ---
Indication: Cough Comparison: February 02, 2022 Portable chest now demonstrates minimal bibasilar infiltrates versus atelectasis. Stable right upper lobe calcified granuloma. Heart not enlarged. Bony thorax intact again with osteopenia, degenerative changes, and scoliosis.
[2023-07-03 13:52] LABS: INFLUENZA A NEGATIVE (NEGATIVE); INFLUENZA B NEGATIVE (NEGATIVE); RESPIRATORY SYNCTIAL VIRUS NEGATIVE (NEGATIVE); SARS-CoV-2 Xpert Express NEGATIVE (NEGATIVE)
--- NOTE | 2023-07-03 14:33 | ERPHSYRPT ---
- History of Present Illness Time Seen by Provider: 07/03/23 12:22 Source: patient Exam Limitations: no limitations Patient Subjective Stated Complaint: Pt c/o of N&V, body aches, headaache, SOB, cough since Thursday Triage Nursing Assessment: Pt brought to the ER by her grandson, hypertensive, rates overall pain as 05/19, went to [facility] on Thursday and was given a Medrol dose pack, an inhaler, sinus pill, and she has gotten worse since then, short of breath, head pain, N&V, body aches, last time anything has stayed down was Thursday Physician History: 73-year-old female presented in the ER with chief complaint of flulike symptoms for the last 3 to 4 days. Patient reports having nonproductive cough, sinus/nasal congestion, intermittent headache, subjective feeling of fever and chills. She has nausea and vomited x 1 yesterday, nonprojectile, nonbilious. She still have nausea but no abdominal pain. Denies any known sick contact. Denies any chest pain or palpitations. No difficulty breathing but what she has at her baseline from COPD. Allergies/Adverse Reactions: Sulfa (Sulfonamide Antibiotics) Allergy (Verified 07/03/23 12:12) Hives morphine Adverse Reaction (Verified 07/03/23 12:12) confusion Home Medications: Metoprolol Succinate 50 mg [Toprol Xl 50 MG] 50 mg PO DAILY 05/19/13 [History] Simvastatin 40 mg [Zocor 40 mg] 40 mg PO HS 10/30/13 [History] Aspirin 81 mg PO DAILY 01/20/20 [History] Lisinopril 10 mg [Zestril 10 MG] 20 mg PO DAILY 01/15/21 [History] Omeprazole 40 mg PO DAILY 01/15/21 [History] Trazodone HCl 100 mg PO DAILY 02/02/22 [History] Buspirone HCl 15 mg PO BID 07/03/23 [History] Hydrocodone/Acetaminophen [Hydrocodone-Acetamin 10-325 mg] 1 tab PO Q6H 07/03/23 [History] Secukinumab [Cosentyx Sensoready (2 Pens)] 150 mg SQ UD 07/03/23 [History] Venlafaxine HCl [Venlafaxine HCl ER] 150 mg PO DAILY 07/03/23 [History] Hx Tetanus, Diphtheria Vaccination/Date Given: No Hx Influenza Vaccination/Date Given: Yes Hx Pneumococcal Vaccination/Date Given: Yes Travel Risk - International Travel Have you traveled outside of the country in past 3 weeks: No - Coronavirus Screening Are you exhibiting any of the following symptoms?: Yes Symptoms: Fever, Cough: New Onset, Shortness of Breath, Vomiting/Diarrhea, Headaches/Body Aches/Fatigue Close contact with a COVID-19 positive Pt in past 14-21 Days: No - Vaccine Status Have you recieved a Covid-19 vaccination: Yes Helmet Binder: Moderna - Vaccination Dates Date of 2cond Vaccination (if applicable): unknown - Review of Systems Constitutional: Fever, Fatigue, Weakness Eyes: No Symptoms Ears, Nose, & Throat: Nose Congestion, Throat Pain Respiratory: Cough Cardiac: No Symptoms Abdominal/Gastrointestinal: Nausea, Vomiting Genitourinary Symptoms: No Symptoms Musculoskeletal: Myalgias Skin: No Symptoms Neurological: Headache Psychological: No Symptoms Hematologic/Lymphatic: No Symptoms Immunological/Allergic: No Symptoms - Past Medical History Pertinent Past Medical History: Yes Neurological History: No Pertinent History ENT History: Cataracts Cardiac History: Hypertension Respiratory History: COPD Endocrine Medical History: Diabetes Type II Musculoskeletal History: Arthritis, Fibromyalgia, Rheumatoid Arthritis, Other GI Medical History: GERD, Hernia, Irritable Bowel History: No Pertinent History Psycho-Social History: Anxiety, Depression Female Reproductive Disorders: No Pertinent History Other Medical History: PSORIATIC OA - Past Surgical History Past Surgical History: Yes Neuro Surgical History: No Pertinent History Cardiac: No Pertinent History Respiratory: No Pertinent History Gastrointestinal: Hernia Repair Genitourinary: Other Musculoskeletal: Joint Replacement, Orthopedic Surgery Female Surgical History: Hysterectomy Other Surgical History: RIGHT AND LEFT KNEE, TUMOR ON LEFT SIDE REMOVED, BLADDER TACT. cataract removed from left eye, orif of left wrist, back injections - Social History Smoking Status: Former smoker How long have you smoked: 3 years Exposure to second hand smoke: No Alcohol Use: None Drug Use: none Patient Lives Alone: Yes Significant Family History: diabetes, hypertension - Nursing Vital Signs Nursing Vital Signs: Initial Vital Signs Temperature 99.3 F 07/03/23 12:02 Pulse Rate 89 07/03/23 12:02 Blood Pressure 171/97 07/03/23 12:02 O2 Sat by Pulse Oximetry 95 07/03/23 12:02 Pain Scale Pain Intensity 10 - Physical Exam General Appearance: no apparent distress, alert Eye Exam: PERRL/EOMI Ears, Nose, Throat Exam: normal ENT inspection, TMs normal, pharynx normal, moist mucous membranes Neck Exam: normal inspection, non-tender, supple, full range of motion Respiratory Exam: lungs clear Cardiovascular Exam: regular rate/rhythm, normal heart sounds Gastrointestinal/Abdomen Exam: soft, normal bowel sounds, No tenderness, No guarding Back Exam: normal inspection Extremity Exam: normal inspection, normal range of motion Neurologic Exam: alert, oriented x 3, cooperative, lead burner helper II-XII nml as tested Skin Exam: normal color SpO2 Interpretation: normal SpO2: 94 O2 Delivery: Room Air Ordered Tests: Active Orders 24 hr Category Date Time Status CHEST 1 VIEW (PORTABLE) Stat Exams 07/03/23 13:02 Completed CBC W DIFF Stat Lab 07/03/23 12:25 Completed CMP Stat Lab 07/03/23 12:25 Completed LIPASE Stat Lab 07/03/23 12:25 Completed UA W/RFX UR CULTURE Stat Lab 07/03/23 12:49 Completed Lab/Rad Data: Laboratory Result Diagrams 07/03/23 12:25 07/03/23 12:25 Laboratory Results 07/03/23 07/03/23 07/03/23 Range/Units 13:05 12:49 12:25 WBC (4.0-10.5) x10^3/uL RBC (4.1-5.4) x10^6/uL Hgb (12.0-16.0) g/dL Hct (35-47) % MCV (78-100) fL MCH (26-32) pg MCHC (32-36) g/dL RDW (11.5-14.0) % Plt Count (150-450) x10^3/uL MPV (7.5-11.0) fL Gran % (36.0-66.0) % Immature Gran % (Auto) (0.00-0.4) % Nucleat RBC Rel Count (0.00-0.1) % Eos # (Auto) (0-0.5) x10^3/uL Immature Gran # (Auto) (0.00-0.03) x10^3u/L Absolute Lymphs (auto) (1.0-4.6) x10^3/uL Absolute Monos (auto) (0.0-1.3) x10^3/uL Absolute Nucleated RBC (0.00-0.01) x10^3u/L Lymphocytes % (24.0-44.0) % Monocytes % (0.0-12.0) % Eosinophils % (0.00-5.0) % Basophils % (0.0-0.4) % Absolute Granulocytes (1.4-6.9) x10^3/uL Basophils # (0-0.4) x10^3/uL Sodium 137 (137-145) mmol/L Potassium 3.8 (3.5-5.1) mmol/L Chloride 103 (98-107) mmol/L Carbon Dioxide 29 (22-30) mmol/L Anion Gap 8.8 (5-15) MEQ/L BUN 10 (7-17) mg/dL Creatinine 0.65 (0.52-1.04) mg/dL Estimated GFR 91.8 ML/MIN Glucose 102 (74-106) mg/dL Calcium 8.9 (8.4-10.2) mg/dL Total Bilirubin 0.40 (0.2-1.3) mg/dL AST 23 (14-36) U/L ALT 16 (0-35) U/L Alkaline Phosphatase 59 (38-126) U/L Serum Total Protein 6.4 (6.3-8.2) g/dL Albumin 3.3 L (3.5-5.0) g/dL Lipase 36 (23-300) U/L Urine Color Yellow (Yellow) Urine Appearance Clear (Clear) Urine pH 7.5 (4.6-8.0) Ur Specific [place] 1.015 (1.005-1.030) Urine Protein Negative (Negative) Urine Glucose (UA) Negative (Negative) mg/dL Urine Ketones Negative (Negative) Urine Blood Negative (Negative) Urine Nitrite Negative (Negative) Urine Bilirubin Negative (Negative) Urine Urobilinogen 0.2 (0.2) mg/dL Ur Leukocyte Esterase Negative (Negative) U Hyaline Cast (Auto) NONE SEEN (0-2) /LPF Urine Microscopic RBC 3-5 (0-5) /HPF Urine Microscopic WBC 0-2 (0-5) /HPF Ur Epithelial Cells None Seen (None Seen) /HPF Urine Bacteria None Seen (None Seen) /HPF Urine Culture Reflexed NO (NO) Influenza Type A Ag NEGATIVE (NEGATIVE) Influenza Type B Ag NEGATIVE (NEGATIVE) RSV (PCR) NEGATIVE (NEGATIVE) SARS-CoV-2 (PCR) NEGATIVE (NEGATIVE) 07/03/23 Range/Units 12:25 WBC 10.7 H (4.0-10.5) x10^3/uL RBC 3.98 L (4.1-5.4) x10^6/uL Hgb 13.1 (12.0-16.0) g/dL Hct 41.1 (35-47) % MCV 103.3 H (78-100) fL MCH 32.9 H (26-32) pg MCHC 31.9 L (32-36) g/dL RDW 12.0 (11.5-14.0) % Plt Count 275 (150-450) x10^3/uL MPV 9.1 (7.5-11.0) fL Gran % 77.3 H (36.0-66.0) % Immature Gran % (Auto) 0.4 (0.00-0.4) % Nucleat RBC Rel Count 0.0 (0.00-0.1) % Eos # (Auto) 0.47 (0-0.5) x10^3/uL Immature Gran # (Auto) 0.04 H (0.00-0.03) x10^3u/L Absolute Lymphs (auto) 1.07 (1.0-4.6) x10^3/uL Absolute Monos (auto) 0.81 (0.0-1.3) x10^3/uL Absolute Nucleated RBC 0.00 (0.00-0.01) x10^3u/L Lymphocytes % 10.0 L (24.0-44.0) % Monocytes % 7.5 (0.0-12.0) % Eosinophils % 4.4 (0.00-5.0) % Basophils % 0.4 (0.0-0.4) % Absolute Granulocytes 8.31 H (1.4-6.9) x10^3/uL Basophils # 0.04 (0-0.4) x10^3/uL Sodium (137-145) mmol/L Potassium (3.5-5.1) mmol/L Chloride (98-107) mmol/L Carbon Dioxide (22-30) mmol/L Anion Gap (5-15) MEQ/L BUN (7-17) mg/dL Creatinine (0.52-1.04) mg/dL Estimated GFR ML/MIN Glucose (74-106) mg/dL Calcium (8.4-10.2) mg/dL Total Bilirubin (0.2-1.3) mg/dL AST (14-36) U/L ALT (0-35) U/L Alkaline Phosphatase (38-126) U/L Serum Total Protein (6.3-8.2) g/dL Albumin (3.5-5.0) g/dL Lipase (23-300) U/L Urine Color (Yellow) Urine Appearance (Clear) Urine pH (4.6-8.0) Ur Specific [place] (1.005-1.030) Urine Protein (Negative) Urine Glucose (UA) (Negative) mg/dL Urine Ketones (Negative) Urine Blood (Negative) Urine Nitrite (Negative) Urine Bilirubin (Negative) Urine Urobilinogen (0.2) mg/dL Ur Leukocyte Esterase (Negative) U Hyaline Cast (Auto) (0-2) /LPF Urine Microscopic RBC (0-5) /HPF Urine Microscopic WBC (0-5) /HPF Ur Epithelial Cells (None Seen) /HPF Urine Bacteria (None Seen) /HPF Urine Culture Reflexed (NO) Influenza Type A Ag (NEGATIVE) Influenza Type B Ag (NEGATIVE) RSV (PCR) (NEGATIVE) SARS-CoV-2 (PCR) (NEGATIVE) - Progress Progress: unchanged Air Movement: good Progress Note: 07/03/23 14:30 73-year-old is evaluated in the ER for flulike symptoms. Patient is afebrile. She is not nauseated now. No abdominal pain. Lungs fairly clear to auscultation bilaterally. Has a white count of 10, fairly unremarkable chemistries. Normal lipase. Abdominal exam is soft nontender with good bowel sounds. Chest x-ray showed questionable infiltrative process bibasilar. She is not hypoxic/tachypneic or tachycardic. COVID flu and RSV are negative. I believe patient has viral etiology bronchitis with superimposed some bacterial infection. I will treat her with Z-Ellis. She has inhaler and nebulizer at home which she is advised to use as needed. I will also give her few Zofran's to go home as well. We do not think she needs any other workup and is stable for d ischarge with outpatient follow-up. Discussed signs symptoms of worsening needing return to ER which she seems understanding. 07/03/23 14:30 Blood Culture(s) Obtained: No Antibiotics given: Yes Counseled pt/family regarding: lab results, diagnosis, need for follow-up, rad results - Departure Departure Disposition: Home Clinical Impression: Acute bronchitis, Nausea Condition: Stable Critical Care Time: No Referrals: ZOYA DURHAM MD [Primary Care Provider] - Follow Up with PCP/3 days Instructions: Acute Bronchitis, Adult (DC) Additional Instructions: Take Tylenol/Zofran as needed. Use inhaler/nebulizer as recommended. Follow-up with primary care for reevaluation. Return to ER for any worsening. Prescriptions: Azithromycin 250 mg [Zithromax 250 MG TABLET] 250 mg PO ZPACK #6 tablet Ondansetron ODT 4 MG [Zofran Odt 4 mg] 1 ea PO QIDPRN PRN #7 tablet PRN Reason: n/v
[2023-07-03 14:57] VITALS: BP 187/99; PULSE 90; RESP 18
== END 2023-07-03 14:55 | disposition home or self-care (01) ==
LOC: ED 11:33
DX: J20.9 Acute bronchitis, unspecified (principal); R11.0 Nausea; R05.1 Acute cough; R09.81 Nasal congestion; R51.9 Headache, unspecified; I10 Essential (primary) hypertension; E11.9 Type 2 diabetes mellitus without complications; Z79.891 Long term (current) use of opiate analgesic; Z79.899 Other long term (current) drug therapy
CPT/HCPCS: 0241U; 36000; 36415; 71045; 80053; 81001; 83690; 85025; 99283

== ENCOUNTER 2023-12-16 15:54 | Day surgery (SDC) | payer MEDICARE ==
[2023-12-16] MEDS ORDERED: Depo-Medrol 40 MG/ML IM ONE (15:55)
[2023-12-16] MEDS ORDERED: XYLOCAINE-MPF 1% 5ML SDV IJ ONE (15:55)
[2023-12-16] MEDS ORDERED: BUPIVACAINE 0.5% VIAL IJ ONE (15:55)
--- NOTE | 2023-12-16 17:13 | XRAY ---
Indication: Left shoulder and subacromial bursa injection. Intraoperative fluoroscopy provided for 31 seconds. 2 digital spot images submitted for interpretation demonstrates needle tip projecting over the left glenohumeral joint superiorly. Second needle tip subacromial. Small amount of contrast injected for needle tip placement. Correlate with intraoperative findings/report.
--- NOTE | 2023-12-17 10:25 | XRAY ---
31 seconds of fluoroscopy was used in surgery for a left intra-articular shoulder and subacromial bursa injection.
== END 2023-12-16 17:00 | disposition home or self-care (01) ==
LOC: SDC-PAIN 15:54
PROVIDERS: ATTEND Psychiatry & Neurology Pain Medicine
DX: M19.012 Primary osteoarthritis, left shoulder (principal)
CPT/HCPCS: 20610; 73030; 77002; J1010; Q9966

== ENCOUNTER 2024-09-06 16:41 | Emergency (ER) | payer MEDICARE, OTHER ==
--- NOTE | 2024-09-06 16:53 | ERPHSYRPT ---
- History of Present Illness Source: patient, family Exam Limitations: no limitations Timing/Duration: week(s) (Several weeks), worse (Symptoms are worsening) Severity of Dyspnea-Max: moderate Severity of Dyspnea-Current: mild Possible Cause: chronic episodes Modifying Factors: Improves With: activity (Worsens), exertion (Worsens) Associated Symptoms: cough, weakness, No chest pain/discomfort Hx Tetanus, Diphtheria Vaccination/Date Given: No Hx Influenza Vaccination/Date Given: Yes Hx Pneumococcal Vaccination/Date Given: Yes <ALLISON POLLARD - Last Filed: 09/06/24 19:05> <MICHAEL MEJÍA - Last Filed: 09/07/24 08:06> - History of Present Illness Time Seen by Provider: 09/06/24 16:53 Physician History: This is a 74-year-old white female patient of Dr. López who arrives by private vehicle and has a complaint of worsening shortness of breath over the last few weeks. Today she felt very weak and the shortness of breath was worse. She denies chest pain. She has not had a fever. She does have coughing symptoms. Patient has no known exposure to individuals with a diagnosis of viral illness. Patient has a history of hypertension, hyperlipidemia, peripheral vascular disease, COPD, gastroesophageal reflux disease, peripheral neuropathy, anxiety/depression. Her room air oxygen saturation level is 98% (ALLISON POLLARD) Allergies/Adverse Reactions: Sulfa (Sulfonamide Antibiotics) Allergy (Verified 09/06/24 16:42) Hives morphine Adverse Reaction (Verified 09/06/24 16:42) confusion Home Medications: Metoprolol Succinate 50 mg [Toprol Xl 50 MG] 50 mg PO DAILY 05/19/13 [History] Simvastatin 40 mg [Zocor 40 mg] 40 mg PO HS 10/30/13 [History] Aspirin 325 mg PO DAILY 01/20/20 [History] Lisinopril 10 mg [Zestril 10 MG] 20 mg PO DAILY 01/15/21 [History] Omeprazole 40 mg PO DAILY 01/15/21 [History] Trazodone HCl 100 mg PO DAILY 02/02/22 [History] Buspirone HCl 15 mg PO BID 07/03/23 [History] Hydrocodone/Acetaminophen [Hydrocodone-Acetamin 10-325 mg] 1 tab PO Q6H 07/03/23 [History] Secukinumab [Cosentyx Sensoready (2 Pens)] 150 mg SQ UD 07/03/23 [History] Venlafaxine HCl [Venlafaxine HCl ER] 150 mg PO DAILY 07/03/23 [History] Albuterol Sulfate Mdi [ALBUTEROL/Proair Hfa MDI] 90 mcg IH DAILY PRN PRN 09/06/24 [History] Aspirin [Ecotrin] 81 mg PO DAILY 09/06/24 [History] Cetirizine HCl [All Day Allergy Relief] 10 mg PO DAILY PRN PRN 09/06/24 [History] Fluticasone/Vilanterol [Breo Ellipta 100-25 Mcg Inhalr] 100 mcg IH DAILY PRN PRN 09/06/24 [History] Leucovorin Calcium 5 mg PO WEEKLY 09/06/24 [History] Magnesium Oxide 400 mg [Mag-Ox 400] 400 mg PO BID 09/06/24 [History] Methotrexate Sodium 2.5 mg [Trexall 2.5 mg] 2.5 mg PO WEEKLY 09/06/24 [History] Travel Risk - International Travel Have you traveled outside of the country in past 3 weeks: No - Emerging Infectious Disease Symptoms: Shortness of Breath <ALLISON POLLARD - Last Filed: 09/06/24 19:05> - Review of Systems Constitutional: Weakness Eyes: No Symptoms Ears, Nose, & Throat: No Symptoms Respiratory: Dyspnea, Dyspnea on Exertion ([place]) Cardiac: No Symptoms Abdominal/Gastrointestinal: No Symptoms Genitourinary Symptoms: No Symptoms Musculoskeletal: No Symptoms Skin: No Symptoms Neurological: No Symptoms Psychological: No Symptoms Endocrine: No Symptoms Hematologic/Lymphatic: No Symptoms Immunological/Allergic: No Symptoms All Other Systems: Reviewed and Negative <ALLISON POLLARD - Last Filed: 09/06/24 19:05> - Past Medical History Pertinent Past Medical History: Yes Neurological History: Peripheral Neuropathy, Other ENT History: Cataracts Cardiac History: High Cholesterol, Hypertension, Peripheral Vascular Disease Respiratory History: COPD, Sleep Apnea Endocrine Medical History: Diabetes Type II Musculoskeletal History: Osteoarthritis, Osteoporosis, Rheumatoid Arthritis, Other GI Medical History: GERD, Hernia, Irritable Bowel History: No Pertinent History Psycho-Social History: Anxiety, Depression Female Reproductive Disorders: No Pertinent History Other Medical History: PSORIATIC ARTHRITIS, DEPRESSION, ANXIETY, GERD. 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 HYPERPARATHYROIDISM. - Past Surgical History Past Surgical History: Yes Neuro Surgical History: No Pertinent History Cardiac: No Pertinent History Respiratory: No Pertinent History Gastrointestinal: Hernia Repair Genitourinary: Other Musculoskeletal: Joint Replacement, Orthopedic Surgery Female Surgical History: Hysterectomy Other Surgical History: RIGHT AND LEFT KNEE, TUMOR ON LEFT SIDE REMOVED, BLADDER TACT. cataract removed from left eye, orif of left wrist, back injections Significant Family History: diabetes, hypertension - Social History Smoking Status: Former smoker How long have you smoked: 3 years Exposure to second hand smoke: No Alcohol Use: None Drug Use: none Patient Lives Alone: Yes <ALLISON POLLARD - Last Filed: 09/06/24 19:05> - Physical Exam General Appearance: no apparent distress, alert, anxiety Eye Exam: PERRL/EOMI, eyes nml inspection Ears, Nose, Throat Exam: hearing grossly normal, normal ENT inspection, normal pharynx Neck Exam: normal inspection, non-tender, supple, full range of motion Respiratory Exam: normal breath sounds, lungs clear, airway intact, No chest tenderness, No respiratory distress Cardiovascular/Chest Exam: normal heart sounds, regular rate/rhythm Abdominal/Gastrointestinal Exam: soft, normal bowel sounds, No tenderness Rectal Exam: not done Extremity Exam: non-tender, normal range of motion, normal inspection, normal capillary refill, no calf tenderness, no pedal edema, pelvis stable Neurologic Exam: alert, oriented x 3, cooperative, physical director II-XII nml as tested, nml cerebellar function, nml station & gait, sensation nml Skin Exam: normal color, warm, dry Lymphatic Exam: No adenopathy SpO2 Interpretation: normal O2 Delivery: Room Air <ALLISON POLLARD - Last Filed: 09/06/24 19:05> - Nursing Vital Signs Nursing Vital Signs: Initial Vital Signs Temperature 98 F 09/06/24 16:40 Pulse Rate 86 09/06/24 16:40 Respiratory Rate 23 09/06/24 16:40 Blood Pressure 128/107 09/06/24 16:40 O2 Sat by Pulse Oximetry 96 09/06/24 16:40 Pain Scale Pain Intensity 0 - Course Nursing assessment & vital signs reviewed: Yes EKG Interpreted by Me: RATE (79), Sinus Rhythm, NORMAL AXIS, NORMAL INTERVALS, NORMAL QRS, NORMAL ST-T, Other (No acute ischemic changes on today's twelve-lead EKG.) <ALLISON POLLARD - Last Filed: 09/06/24 19:05> - Radiology Exams Chest X-ray Interpretation: Interpreted by me (Nonacute chest with chronic features) <MICHAEL MEJÍA - Last Filed: 09/07/24 08:06> Ordered Tests: Active Orders 24 hr Category Date Time Status Sale [employer] STAT Care 09/06/24 17:22 Active EKG-ER Only STAT Care 09/06/24 17:21 Active IV Insertion STAT Care 09/06/24 17:21 Active POCT Glucose Check STAT Care 09/07/24 07:07 Active CHEST 1 VIEW (PORTABLE) Stat Exams 09/06/24 19:31 Taken BLOOD CULTURE Stat Lab 09/06/24 18:24 Received CBC W DIFF Stat Lab 09/06/24 18:17 Completed CMP Stat Lab 09/06/24 18:17 Completed D-DIMER QUANTITATIVE Stat Lab 09/06/24 18:17 Completed Lactic Acid Stat Lab 09/06/24 18:10 Completed Lactic Acid Stat Lab 09/06/24 20:22 Completed MAGNESIUM Stat Lab 09/06/24 18:17 Completed NT PRO BNPII Stat Lab 09/06/24 18:17 Completed POCT GLUCOSE Stat Lab 09/07/24 07:04 Completed TROPONIN Q4H Lab 09/06/24 18:17 Completed TROPONIN Q4H Lab 09/06/24 21:55 Completed TROPONIN Q4H Lab 09/07/24 01:43 Completed Respiratory Therapy Assessment DAILY RT 09/06/24 20:06 Active Medication Summary Generic Name Dose Route Start Last Admin Trade Name Freq PRN Reason Stop Dose Admin Sodium Chloride 1,000 mls @ 100 mls/hr 09/06/24 19:45 09/07/24 07:52 Sodium Chloride 0.9% 1000 Ml IV 10/06/24 19:44 100 mls/hr .Q10H NUBIA Administration Discontinued Medications Generic Name Dose Route Start Last Admin Trade Name Freq PRN Reason Stop Dose Admin Albuterol/Ipratropium 3 ml 09/06/24 19:33 09/06/24 20:04 Ipratropium/Albuterol Sulfate 3 Ml Ampul.Neb IH 09/06/24 19:34 3 ml STAT ONE Administration Albuterol/Ipratropium Confirm 09/06/24 19:58 Ipratropium/Albuterol Sulfate 3 Ml Ampul.Neb Administered 09/06/24 19:59 Dose 3 ml IH .STK-MED ONE Dexamethasone Sodium Phosphate 6 mg 09/06/24 19:32 09/06/24 19:49 Dexamethasone Sod Phosphate 10 Mg/Ml IV 09/06/24 19:33 6 mg STAT ONE Administration Dexamethasone Sodium Phosphate Confirm 09/06/24 19:47 Dexamethasone Sod Phosphate 10 Mg/Ml Administered 09/06/24 19:48 Dose 10 mg .ROUTE .STK-MED ONE Sodium Chloride Confirm 09/07/24 07:51 Sodium Chloride 0.9% 1000 Ml Administered 09/07/24 07:52 Dose 1,000 mls @ ud .ROUTE .STK-MED ONE Lab/Rad Data: Laboratory Result Diagrams 09/06/24 18:17 09/06/24 18:17 Laboratory Results 09/07/24 09/07/24 09/06/24 Range/Units 07:04 01:43 21:55 WBC (3.98-10.04) x10^3/uL RBC (3.93-5.22) x10^6/uL Hgb (11.2-15.7) g/dL Hct (34.1-44.9) % MCV (79.4-94.8) fL MCH (25.6-32.2) pg MCHC (32.2-35.5) g/dL RDW (11.7-14.4) % Plt Count (182-369) x10^3/uL MPV (9.4-12.3) fL Gran % (34.0-71.1) % Immature Gran % (Auto) (0.001-0.429) % Nucleat RBC Rel Count (0.00-0.2) % Eos # (Auto) (0.04-0.36) x10^3/uL Immature Gran # (Auto) (0.001-0.031) x10^3u/L Absolute Lymphs (auto) (1.18-3.74) x10^3/uL Absolute Monos (auto) (0.24-0.86) x10^3/uL Absolute Nucleated RBC (0.00-0.012) x10^3u/L Lymphocytes % (19.3-51.7) % Monocytes % (4.7-12.5) % Eosinophils % (0.7-5.8) % Basophils % (0.1-1.2) % Absolute Granulocytes (1.56-6.13) x10^3/uL Basophils # (0.01-0.08) x10^3/uL D-Dimer (0.0-0.50) mg/L Sodium (135-145) mmol/L Potassium (3.5-5.1) mmol/L Chloride (98-107) mmol/L Carbon Dioxide (22-30) mmol/L Anion Gap (5-15) MEQ/L BUN (7-17) mg/dL Creatinine (0.52-1.04) mg/dL Estimated GFR ML/MIN Glucose (74-106) mg/dL POC Glucometer 91 (74 to 106) mg/dL Lactic Acid (0.4-2.0) Calcium (8.4-10.2) mg/dL Magnesium (1.6-2.3) mg/dL Total Bilirubin (0.2-1.3) mg/dL AST (14-36) U/L ALT (0-35) U/L Alkaline Phosphatase (38-126) U/L Troponin I < 0.012 < 0.012 (0.000-0.033) ng/mL NT-Pro-B Natriuret Pep (<300) pg/mL Serum Total Protein (6.3-8.2) g/dL Albumin (3.5-5.0) g/dL Influenza Type A Ag (NEGATIVE) Influenza Type B Ag (NEGATIVE) RSV (PCR) (NEGATIVE) SARS-CoV-2 (PCR) (NEGATIVE) 09/06/24 09/06/24 09/06/24 Range/Units 20:22 18:24 18:17 WBC (3.98-10.04) x10^3/uL RBC (3.93-5.22) x10^6/uL Hgb (11.2-15.7) g/dL Hct (34.1-44.9) % MCV (79.4-94.8) fL MCH (25.6-32.2) pg MCHC (32.2-35.5) g/dL RDW (11.7-14.4) % Plt Count (182-369) x10^3/uL MPV (9.4-12.3) fL Gran % (34.0-71.1) % Immature Gran % (Auto) (0.001-0.429) % Nucleat RBC Rel Count (0.00-0.2) % Eos # (Auto) (0.04-0.36) x10^3/uL Immature Gran # (Auto) (0.001-0.031) x10^3u/L Absolute Lymphs (auto) (1.18-3.74) x10^3/uL Absolute Monos (auto) (0.24-0.86) x10^3/uL Absolute Nucleated RBC (0.00-0.012) x10^3u/L Lymphocytes % (19.3-51.7) % Monocytes % (4.7-12.5) % Eosinophils % (0.7-5.8) % Basophils % (0.1-1.2) % Absolute Granulocytes (1.56-6.13) x10^3/uL Basophils # (0.01-0.08) x10^3/uL D-Dimer 0.62 H* (0.0-0.50) mg/L Sodium (135-145) mmol/L Potassium (3.5-5.1) mmol/L Chloride (98-107) mmol/L Carbon Dioxide (22-30) mmol/L Anion Gap (5-15) MEQ/L BUN (7-17) mg/dL Creatinine (0.52-1.04) mg/dL Estimated GFR ML/MIN Glucose (74-106) mg/dL POC Glucometer (74 to 106) mg/dL Lactic Acid 1.2 (0.4-2.0) Calcium (8.4-10.2) mg/dL Magnesium (1.6-2.3) mg/dL Total Bilirubin (0.2-1.3) mg/dL AST (14-36) U/L ALT (0-35) U/L Alkaline Phosphatase (38-126) U/L Troponin I (0.000-0.033) ng/mL NT-Pro-B Natriuret Pep (<300) pg/mL Serum Total Protein (6.3-8.2) g/dL Albumin (3.5-5.0) g/dL Influenza Type A Ag NEGATIVE (NEGATIVE) Influenza Type B Ag NEGATIVE (NEGATIVE) RSV (PCR) NEGATIVE (NEGATIVE) SARS-CoV-2 (PCR) POSITIVE A (NEGATIVE) 09/06/24 09/06/24 09/06/24 Range/Units 18:17 18:17 18:17 WBC (3.98-10.04) x10^3/uL RBC (3.93-5.22) x10^6/uL Hgb (11.2-15.7) g/dL Hct (34.1-44.9) % MCV (79.4-94.8) fL MCH (25.6-32.2) pg MCHC (32.2-35.5) g/dL RDW (11.7-14.4) % Plt Count (182-369) x10^3/uL MPV (9.4-12.3) fL Gran % (34.0-71.1) % Immature Gran % (Auto) (0.001-0.429) % Nucleat RBC Rel Count (0.00-0.2) % Eos # (Auto) (0.04-0.36) x10^3/uL Immature Gran # (Auto) (0.001-0.031) x10^3u/L Absolute Lymphs (auto) (1.18-3.74) x10^3/uL Absolute Monos (auto) (0.24-0.86) x10^3/uL Absolute Nucleated RBC (0.00-0.012) x10^3u/L Lymphocytes % (19.3-51.7) % Monocytes % (4.7-12.5) % Eosinophils % (0.7-5.8) % Basophils % (0.1-1.2) % Absolute Granulocytes (1.56-6.13) x10^3/uL Basophils # (0.01-0.08) x10^3/uL D-Dimer (0.0-0.50) mg/L Sodium 133 L (135-145) mmol/L Potassium 4.8 (3.5-5.1) mmol/L Chloride 103 (98-107) mmol/L Carbon Dioxide 25 (22-30) mmol/L Anion Gap 10.4 (5-15) MEQ/L BUN 26 H (7-17) mg/dL Creatinine 1.30 H (0.52-1.04) mg/dL Estimated GFR 42.6 ML/MIN Glucose 78 (74-106) mg/dL POC Glucometer (74 to 106) mg/dL Lactic Acid (0.4-2.0) Calcium 9.1 (8.4-10.2) mg/dL Magnesium 1.6 (1.6-2.3) mg/dL Total Bilirubin 0.50 (0.2-1.3) mg/dL AST 29 (14-36) U/L ALT 24 (0-35) U/L Alkaline Phosphatase 57 (38-126) U/L Troponin I < 0.012 (0.000-0.033) ng/mL NT-Pro-B Natriuret Pep 95.3 (<300) pg/mL Serum Total Protein 6.2 L (6.3-8.2) g/dL Albumin 3.8 (3.5-5.0) g/dL Influenza Type A Ag (NEGATIVE) Influenza Type B Ag (NEGATIVE) RSV (PCR) (NEGATIVE) SARS-CoV-2 (PCR) (NEGATIVE) 09/06/24 09/06/24 Range/Units 18:17 18:10 WBC 11.9 H (3.98-10.04) x10^3/uL RBC 4.17 (3.93-5.22) x10^6/uL Hgb 14.2 (11.2-15.7) g/dL Hct 42.6 (34.1-44.9) % MCV 102.2 H (79.4-94.8) fL MCH 34.1 H (25.6-32.2) pg MCHC 33.3 (32.2-35.5) g/dL RDW 13.6 (11.7-14.4) % Plt Count 377 H (182-369) x10^3/uL MPV 9.8 (9.4-12.3) fL Gran % 76.2 H (34.0-71.1) % Immature Gran % (Auto) 0.6 H (0.001-0.429) % Nucleat RBC Rel Count 0.0 (0.00-0.2) % Eos # (Auto) 0.11 (0.04-0.36) x10^3/uL Immature Gran # (Auto) 0.07 H (0.001-0.031) x10^3u/L Absolute Lymphs (auto) 1.76 (1.18-3.74) x10^3/uL Absolute Monos (auto) 0.83 (0.24-0.86) x10^3/uL Absolute Nucleated RBC 0.00 (0.00-0.012) x10^3u/L Lymphocytes % 14.9 L (19.3-51.7) % Monocytes % 7.0 (4.7-12.5) % Eosinophils % 0.9 (0.7-5.8) % Basophils % 0.4 (0.1-1.2) % Absolute Granulocytes 9.03 H (1.56-6.13) x10^3/uL Basophils # 0.05 (0.01-0.08) x10^3/uL D-Dimer (0.0-0.50) mg/L Sodium (135-145) mmol/L Potassium (3.5-5.1) mmol/L Chloride (98-107) mmol/L Carbon Dioxide (22-30) mmol/L Anion Gap (5-15) MEQ/L BUN (7-17) mg/dL Creatinine (0.52-1.04) mg/dL Estimated GFR ML/MIN Glucose (74-106) mg/dL POC Glucometer (74 to 106) mg/dL Lactic Acid 2.9 H (0.4-2.0) Calcium (8.4-10.2) mg/dL Magnesium (1.6-2.3) mg/dL Total Bilirubin (0.2-1.3) mg/dL AST (14-36) U/L ALT (0-35) U/L Alkaline Phosphatase (38-126) U/L Troponin I (0.000-0.033) ng/mL NT-Pro-B Natriuret Pep (<300) pg/mL Serum Total Protein (6.3-8.2) g/dL Albumin (3.5-5.0) g/dL Influenza Type A Ag (NEGATIVE) Influenza Type B Ag (NEGATIVE) RSV (PCR) (NEGATIVE) SARS-CoV-2 (PCR) (NEGATIVE) - Progress Progress: improved, re-examined Air Movement: good <ALLISON POLLARD - Last Filed: 09/06/24 19:05> - Progress Blood Culture(s) Obtained: Yes Antibiotics given: No Counseled pt/family regarding: lab results, diagnosis, rad results <MICHAEL MEJÍA - Last Filed: 09/07/24 08:06> - Progress Progress Note: 09/06/24 18:14 My medical decision making and the assignment of moderate complexity to this patient's medical issue today is based on review of the patient's past medical history, review of the patient's medication list, reviewed patient drug allergy list, history present illness and physical findings on examination. The workup in this patient includes placement of an intravenous line, twelve-lead EKG, BNP, D-dimer level, troponin level, CBC, CMP, viral swabs, monotest, chest x-ray. Differential diagnosis includes but is not limited to upper respiratory infection, pneumonia, viral illness, COPD exacerbation, CHF exacerbation, arrhythmia, myocardial infarction, 09/06/24 19:05 I am transferring care of this patient to Dr. Mejía at shift change. He will follow-up on the workup results and make final disposition. (ALLISON POLLARD) 74-year-old female presents to our ED for evaluation of shortness of breath. Patient initially evaluated by Dr. Pollard. Patient endorsed to Dr. Mejía at approximately 7 PM. Ambulatory pulse oximetry was 89%. Patient will require hospitalization for further evaluation and treatment. 09/06/24 22:[address] Herrera ED physician at [facility] as an effort to transfer our patient to open up bed availability in our ED. I spoke to Dr. Keegan Herrera at 11 PM. He advised that they are boarding patients in their ED also. They do not have any beds immediately available. 09/06/24 23:05 74-year-old female COVID-positive hypoxic. Patient requires hospitalization for further evaluation and treatment. However there are currently no beds available in the hospital or within our emergency department. Patient has been boarded in our emergency department overnight. We communicated our need with administration. Administration arranged transport to [facility] for further evaluation and treatment. Plan of care discussed with patient. She agrees to transfer to [facility] for further evaluation and treatment. Patient reassessed. Patient resting comfortably. Vitals are stable. O2 sat normal at rest. Portions of this note were created with voice recognition technology. There may be grammatical, spelling, punctuation or sound alike errors 09/07/24 08:04 (MICHAEL MEJÍA) - Departure Departure Disposition: Home Critical Care Time: No <ALLISON POLLARD - Last Filed: 09/06/24 19:05> <MICHAEL MEJÍA - Last Filed: 09/07/24 08:06> - Departure Clinical Impression: Shortness of breath, Acute renal injury, Dehydration, COVID-19, Hypoxia, Reactive airway disease Condition: Stable Referrals: ZOYA LÓPEZ MD [Primary Care Provider] - Follow up/PCP as directed
[2024-09-06 18:34] LABS: Absolute Neutrophil Ct (ANC) 9.03 x10^3/uL (1.56-6.13); BASOPHIL % 0.4 % (0.1-1.2); Basophil (Absolute #) 0.05 x10^3/uL (0.01-0.08); Eosinophil % 0.9 % (0.7-5.8); Eosinophil (Absolute #) 0.11 x10^3/uL (0.04-0.36); Hematocrit 42.6 % (34.1-44.9); Hemoglobin 14.2 g/dL (11.2-15.7); IMMATURE GRAN # 0.07 x10^3u/L (0.001-0.031); IMMATURE GRAN % 0.6 % (0.001-0.429); Lymphocyte (Absolute #) 1.76 x10^3/uL (1.18-3.74); Lymphocytes % 14.9 % (19.3-51.7); Mean Cell Volume 102.2 fL (79.4-94.8); Mean Corpuscular Hemoglobin 34.1 pg (25.6-32.2); Mean Corpuscular Hgb Concent. 33.3 g/dL (32.2-35.5); Mean Platelet Volume 9.8 fL (9.4-12.3); Monocyte (Absolute #) 0.83 x10^3/uL (0.24-0.86); Neutrophil % 76.2 % (34.0-71.1); Platelet Count 377 x10^3/uL (182-369); Red Blood Count 4.17 x10^6/uL (3.93-5.22); Red Cell Distribution Width 13.6 % (11.7-14.4); White Blood Count 11.9 x10^3/uL (3.98-10.04)
[2024-09-06 18:50] LABS: ALBUMIN 3.8 g/dL (3.5-5.0); ANION GAP 10.4 MEQ/L (5-15); BILIRUBIN,TOTAL 0.5 mg/dL (0.2-1.3); Calcium 9.1 mg/dL (8.4-10.2); Creatinine 1 1.3 mg/dL (0.52-1.04); EST GLOMERULAR FILTRATION RATE 42.6 ML/MIN; MAGNESIUM 1.6 mg/dL (1.6-2.3); Potassium 4.8 mmol/L (3.5-5.1); Total Protein 6.2 g/dL (6.3-8.2)
[2024-09-06 19:11] LABS: INFLUENZA A NEGATIVE (NEGATIVE); INFLUENZA B NEGATIVE (NEGATIVE); RESPIRATORY SYNCTIAL VIRUS NEGATIVE (NEGATIVE)
[2024-09-06 19:19] LABS: SARS-CoV-2 Xpert Express POSITIVE (NEGATIVE)
[2024-09-06] MEDS ORDERED: DECADRON 10MG INJ. ONE (19:47)
[2024-09-06] MEDS ORDERED: Sodium Chloride 0.9% 1000 ML 1,000 ML ONE (19:47)
[2024-09-06] MEDS: DECADRON 10MG INJ. IV ONE (19:49)
[2024-09-06] MEDS: Sodium Chloride 0.9% 1000 ML 1,000 ML IV SCH (19:50)
[2024-09-06] MEDS ORDERED: DUONEB 0.5-3 MG/3 ml Neb IH ONE (19:58)
[2024-09-06] MEDS: DUONEB 0.5-3 MG/3 ml Neb IH ONE (20:04)
[2024-09-07] MEDS ORDERED: Sodium Chloride 0.9% 1000 ML 1,000 ML ONE (07:51)
[2024-09-07 08:25] VITALS: RESP 22
--- NOTE | 2024-09-07 08:38 | XRAY ---
Indication: Short of breath. Comparison: March 28, 2023 Portable chest again demonstrates chronic lung markings and tiny right upper lobe calcified granuloma. No focal infiltrate, consolidation, or large effusion. Heart not enlarged. Bony thorax intact again with osteopenia mild degenerative changes. Impression: Nonacute chest with chronic features.
[2024-09-07 09:16] VITALS: BP 119/68; PULSE 89; TEMP 97.6; O2SAT 98
== END 2024-09-07 09:45 | disposition critical access hospital (66) ==
LOC: ED 16:41
DX: U07.1 COVID-19 (principal); R09.02 Hypoxemia; R06.02 Shortness of breath; N17.9 Acute kidney failure, unspecified; E86.0 Dehydration; J45.909 Unspecified asthma, uncomplicated; R53.1 Weakness; I10 Essential (primary) hypertension; E78.5 Hyperlipidemia, unspecified; Z79.899 Other long term (current) drug therapy
CPT/HCPCS: 0241U; 36415; 71045; 80053; 82947; 83605; 83735; 83880; 84484; 85025; 85379; 87040; 93005; 93041; 94640; 96374; 99285; J1100; A9270-GY

== ENCOUNTER 2024-11-16 16:03 | Day surgery (SDC) | payer MEDICARE, OTHER ==
[2024-11-16] MEDS ORDERED: LIDOCAINE HCL 1% AMPUL 5 ML IJ ONE (16:04)
[2024-11-16] MEDS ORDERED: Depo-Medrol 40 MG/ML IM ONE (16:04)
[2024-11-16] MEDS ORDERED: BUPIVACAINE 0.5% VIAL IJ ONE (16:04)
--- NOTE | 2024-11-16 20:30 | XRAY ---
Indication: Right shoulder and subacromial bursa injection. Intraoperative fluoroscopy provided for 20 seconds. 3 digital spot image submitted for interpretation demonstrates needle tip projecting over right glenohumeral joint superiorly. Second needle tip subacromial. Small amount of contrast injected for both needle tip placement. Correlate with intraoperative findings/report.
--- NOTE | 2024-11-16 20:30 | XRAY ---
Indication: Left shoulder and subacromial bursa injection. Intraoperative fluoroscopy provided for 30 seconds. 2 digital spot image submitted for interpretation demonstrates needle tip projecting over left glenohumeral joint superiorly. Second needle tip subacromial. Small amount of contrast injected for both needle tip placement. Correlate with intraoperative findings/report.
--- NOTE | 2024-11-16 20:32 | XRAY ---
20 seconds of fluoroscopy were used in surgery for a right intra-articular shoulder and a right subacromial bursa injection.
--- NOTE | 2024-11-16 20:32 | XRAY ---
30 seconds of fluoroscopy were used in surgery for a left intra-articular shoulder and a left subacromial bursa injection.
== END 2024-11-16 17:20 | disposition home or self-care (01) ==
LOC: SDC-PAIN 16:03
PROVIDERS: ATTEND Psychiatry & Neurology Pain Medicine
DX: M19.012 Primary osteoarthritis, left shoulder (principal); M19.011 Primary osteoarthritis, right shoulder; M75.52 Bursitis of left shoulder; M75.51 Bursitis of right shoulder; E11.9 Type 2 diabetes mellitus without complications
CPT/HCPCS: 20610; 73030; 77002; 82947; Q9966